=== PATIENT | male | born 1945 | race Asian ===

== ENCOUNTER 2016-10-28 09:17 | Outpatient (CLI) | payer MEDICARE, BC | END 2016-10-28 09:18 | disposition home or self-care (01) | DX: K59.09 Other constipation (principal); I73.9 Peripheral vascular disease, unspecified; E03.9 Hypothyroidism, unspecified; K21.0 Gastro-esophageal reflux disease with esophagitis; I48.0 Paroxysmal atrial fibrillation; N18.3 Chronic kidney disease, stage 3 (moderate); N05.9 Unspecified nephritic syndrome with unspecified morphologic changes; D70.9 Neutropenia, unspecified; M10.00 Idiopathic gout, unspecified site ==

== ENCOUNTER 2016-11-28 15:01 | Emergency (ER) | payer MEDICARE, BC ==
[2016-11-28] MEDS ORDERED: LIDOCAINE VISCOUS 2% 15 ML UDC MM STA (15:42)
[2016-11-28] MEDS ORDERED: MAG HYDROX/AL HYDROX/SIMETH 30 ML UDC PO STA (15:43)
[2016-11-28] MEDS ORDERED: MAG HYDROX/AL HYDROX/SIMETH 30 ML UDC ONE (15:49)
[2016-11-28] MEDS ORDERED: LIDOCAINE VISCOUS 2% 15 ML UDC MM ONE (15:49)
[2016-11-28] MEDS ORDERED: IPRATROPIUM/ALBUTEROL 3 ML NEB INH STA (16:00)
[2016-11-28] MEDS ORDERED: IPRATROPIUM/ALBUTEROL 3 ML NEB INH ONE (16:13)
== END 2016-11-28 17:34 | disposition home or self-care (01) ==
DX: K29.00 Acute gastritis without bleeding (principal); J44.9 Chronic obstructive pulmonary disease, unspecified; I10 Essential (primary) hypertension; E78.00 Pure hypercholesterolemia, unspecified; I25.2 Old myocardial infarction; Z86.73 Personal history of transient ischemic attack (TIA), and cerebral infarction without residual deficits; Z87.891 Personal history of nicotine dependence
CPT/HCPCS: 36415; 71020; 80053; 83690; 84484; 85025; 93005; 93010; 94640; 94664; 99283; 99284; A9270; J7620

== ENCOUNTER 2017-01-27 08:00 | Outpatient (CLI) | payer MEDICARE, BC | END 2017-01-27 23:59 | DX: E11.29 Type 2 diabetes mellitus with other diabetic kidney complication (principal); I73.9 Peripheral vascular disease, unspecified; I48.0 Paroxysmal atrial fibrillation; I10 Essential (primary) hypertension; I25.10 Atherosclerotic heart disease of native coronary artery without angina pectoris ==

== ENCOUNTER 2017-04-28 09:03 | Outpatient (CLI) | payer MEDICARE, BC ==
[2017-04-28 09:40] LABS: HCT - HEMATOCRIT 39.9 % (42.0-52.0); HGB - HEMOGLOBIN 13.4 g/dL (14.0-18.0); MEAN CORPUSCULAR HEMOGLOBIN 31.4 pg (27.0-31.0); MEAN CORPUSCULAR HGB CONC 33.6 g/dL (32.0-36.0); MEAN CORPUSCULAR VOLUME 93.4 fL (80.0-94.0); MEAN PLATELET VOLUME 7.4 fL (7.4-11.4); RED BLOOD COUNT 4.27 10^6/uL (4.70-6.10); RED CELL DISTRIBUTION WIDTH 13.1 % (12.0-15.0); WHITE BLOOD COUNT 5.9 x10^3/uL (4.8-10.8)
[2017-04-28 10:00] LABS: ALBUMIN/GLOBULIN RATIO 1.5 (1.0-2.2); BILIRUBIN,TOTAL 0.9 mg/dL (0.2-1.0); CALCIUM 9.4 mg/dL (8.5-10.3); HEMOGLOBIN A1C 0.81 g/dL; POTASSIUM 4.6 mmol/L (3.5-5.0); TOTAL PROTEIN 6.9 g/dL (6.7-8.2)
== END 2017-04-28 09:04 | disposition home or self-care (01) ==
LOC: LAB 09:03
PROVIDERS: ATTEND Internal Medicine Nephrology
DX: N05.9 Unspecified nephritic syndrome with unspecified morphologic changes (principal); E11.9 Type 2 diabetes mellitus without complications; D70.9 Neutropenia, unspecified; M10.00 Idiopathic gout, unspecified site; R80.9 Proteinuria, unspecified; I48.0 Paroxysmal atrial fibrillation; K21.9 Gastro-esophageal reflux disease without esophagitis; I25.10 Atherosclerotic heart disease of native coronary artery without angina pectoris
CPT/HCPCS: 36415; 80053; 82043; 82570; 83036; 84156; 84550

== ENCOUNTER 2017-06-25 09:21 | Emergency (ER) | payer MEDICARE, BC ==
[2017-06-25] MEDS ORDERED: SODIUM CHLORIDE FLUSH 0.9% 10 ML SYRINGE IVP ONE ×2 (09:52→12:36)
[2017-06-25 10:13] LABS: BASOPHILS # (AUTO) 0.1 10^3/uL (0.0-0.1); BASOPHILS % (AUTO) 1.2 %; EOSINOPHILS # (AUTO) 0.8 10^3/uL (0.0-0.7); EOSINOPHILS % (AUTO) 13.1 %; HCT - HEMATOCRIT 36.5 % (42.0-52.0); LYMPHOCYTES % (AUTO) 16.4 %; MEAN CORPUSCULAR HEMOGLOBIN 31.1 pg (27.0-31.0); MEAN CORPUSCULAR HGB CONC 32.7 g/dL (32.0-36.0); MEAN PLATELET VOLUME 7.7 fL (7.4-11.4); MONOCYTES # (AUTO) 0.5 10^3/uL (0.0-1.0); MONOCYTES % (AUTO) 7.9 %; NEUTROPHILS # (AUTO) 3.6 10^3/uL (1.5-6.6); NEUTROPHILS % (AUTO) 61.4 %; RED BLOOD COUNT 3.84 10^6/uL (4.70-6.10); RED CELL DISTRIBUTION WIDTH 13.8 % (12.0-15.0); UNCORRECTED WHITE BLOOD COUNT 5.8 x10^3/uL; WHITE BLOOD COUNT 5.8 x10^3/uL (4.8-10.8)
[2017-06-25 10:23] LABS: ALBUMIN/GLOBULIN RATIO 1.4 (1.0-2.2); BILIRUBIN,TOTAL 0.7 mg/dL (0.2-1.0); CREATININE 1.9 mg/dL (0.6-1.2); POTASSIUM 4.7 mmol/L (3.5-5.0); TOTAL PROTEIN 6.6 g/dL (6.7-8.2)
--- NOTE | 2017-06-25 10:44 | XRAY Preliminary Report ---
Exam: XR Chest 1 View IMPRESSION: No radiographically apparent acute abnormality in the chest. No significant change from p rior allowing for differences in technique. [facility] SITE ID: [id number]
--- NOTE | 2017-06-25 10:46 | XRAY Report ---
EXAM: CHEST RADIOGRAPHY EXAM DATE: 06/25/2017 10:17 AM. CLINICAL HISTORY: Chest pain. COMPARISON: 11/28/2016. TECHNIQUE: 1 view. FINDINGS: Lungs/Pleura: No focal consolidation evident. Left pleural thickening as before. No pleural effusion. No pneumothorax. Mediastinum: Mild enlargement of the cardiac silhouette and tortuous, atherosclerotic thoracic aorta are similar to prior. Surgical clips throughout the mediastinum. Other: Left chest dual-lead cardiac conduction device in stable position. Status post median sternoto my. IMPRESSION: No radiographically apparent acute abnormality in the chest. No significant change from p rior allowing for differences in technique. [facility] Referring Provider Line: [phone] SITE ID: [id number]
[2017-06-25] MEDS ORDERED: cefTRIAXone 1 GM VIAL IVP STA (10:54)
[2017-06-25] MEDS ORDERED: VANCOMYCIN INJ 1 GM in SODIUM CHLORIDE 0.9% 250 ML IV STA (10:54)
[2017-06-25] MEDS ORDERED: MAG HYDROX/AL HYDROX/SIMETH 30 ML UDC PO STA (10:55)
[2017-06-25] MEDS ORDERED: PHENobarb/HYOSCY/ATROPINE/SCOP 5 ML SYRINGE PO STA (10:56)
[2017-06-25] MEDS ORDERED: LIDOCAINE VISCOUS 2% 15 ML UDC MM STA (10:56)
[2017-06-25] MEDS ORDERED: MAG HYDROX/AL HYDROX/SIMETH 30 ML UDC ONE (11:23)
[2017-06-25] MEDS ORDERED: cefTRIAXone 1 GM VIAL ONE (11:23)
[2017-06-25] MEDS ORDERED: PHENobarb/HYOSCY/ATROPINE/SCOP 5 ML SYRINGE PO ONE (11:23)
[2017-06-25] MEDS ORDERED: LIDOCAINE VISCOUS 2% 15 ML UDC MM ONE (11:23)
[2017-06-25] MEDS ORDERED: VANCOMYCIN 1 GM VIAL ONE ×2 (12:36→12:43)
--- NOTE | 2017-06-25 13:29 | ED Physician Documentation ---
PD HPI Fall - Stated complaint Stated Complaint: CHEST PAIN - Chief complaint Chief Complaint: Cardiac - History obtained from History obtained from: Patient, Family - History of Present Illness Similar symptoms before: Diagnosis (Reports history of esophageal spasms, as well as a prior history of H. pylori, which was treated.) - Additional information Additional information: The patient is a 71-year-old male who presents with left substernal chest pain that started yesterday and recurred again this morning. He denies associated nausea, vomiting, shortness of breath, or diaphoresis. He reports history of similar symptoms in the past with gastroesophageal reflux and esophageal spasms. He sees a cushion spring assembler, who treated him for H. pylori, and subsequent test revealed resolution. He also has history of coronary artery disease, status post CABG, and status post pacer placement. He has a history of atrial fibrillation, and is anticoagulated on Eliquis. Review of Systems Constitutional: denies: Fever, Fatigue Ears: denies: Tinnitus/ringing Nose: denies: Congestion Throat: denies: Sore throat Cardiac: reports: Chest pain / pressure. denies: Palpitations Respiratory: denies: Dyspnea, Cough GI: denies: Abdominal Pain, Nausea, Vomiting : denies: Dysuria Skin: denies: Rash Musculoskeletal: denies: Neck pain, Extremity swelling Neurologic: denies: Focal weakness, Numbness, Headache PD PAST MEDICAL HISTORY - Past Medical History Cardiovascular: Hypertension, High cholesterol, [place] Respiratory: None Neuro: CVA Endocrine/Autoimmune: None GI: GERD, Other (H. pylori) : Renal insuffiency HEENT: Other Psych: None Musculoskeletal: None - Past Surgical History Past Surgical History: Yes Cardiovascular: CABG, Pacemaker - Present Medications Home Medications: Ambulatory Orders Medication Instructions Recorded Confirmed Allopurinol 300 mg PO DAILY 06/18/14 06/25/17 Amiodarone [Pacerone] 200 mg PO QPM 06/18/14 06/25/17 Amlodipine Besylate [Norvasc] 2.5 mg PO DAILY 06/18/14 06/25/17 Ammonium Lactate 12 misc TOP BID 06/18/14 06/25/17 Atorvastatin Calcium 40 mg PO QPM 06/18/14 06/25/17 Cholecalciferol (Vitamin D3) 1,000 units PO DAILY 06/18/14 06/25/17 [Vitamin D-3] Clobetasol Propionate/Emoll 0.05 misc TOP DAILY 06/18/14 06/25/17 [Clobetasol Emollient 0.05% Crm] Metoprolol Succinate 25 mg PO DAILY 06/18/14 06/25/17 Insulin Glargine [Lantus Solostar] 8 unit SUBQ QDBREAKFAST 07/11/14 06/25/17 Apixaban [Eliquis] 5 mg PO BID 09/06/15 06/25/17 Albuterol Sulf [Ventolin Hfa 1 - 2 puffs INH Q4HR PRN #1 inhaler 11/28/16 Inhaler] Aspirin Chewable [St Binu 81 mg PO DAILY 06/25/17 06/25/17 Aspirin] Clobetasol Propionate/Emoll 06/25/17 [Clobetasol Emollient 0.05% Crm] Hydrocortisone 1% Oint 06/25/17 [Hydrocortisone] Ketoconazole 06/25/17 Losartan Potassium 25 mg PO DAILY 06/25/17 06/25/17 Tamsulosin [Flomax] 0.4 mg PO DAILY PM 06/25/17 06/25/17 - Allergies Allergies/Adverse Reactions: Allergies Allergy/AdvReac Type Severity Reaction Status Date / Time Penicillins Allergy Unknown Verified 06/25/17 09:45 - Social History Does the pt smoke?: Yes Smoking Status: Former smoker Does the pt drink ETOH?: No Does the pt have substance abuse?: No PD ED PE NORMAL - Vitals Vital signs reviewed: Yes (Hypertension initially.) - General General: Alert and oriented X 3, Well developed/nourished - HEENT HEENT: Atraumatic, EOMI, Pharynx benign - Neck Neck: No adenopathy, No JVD - Cardiac Cardiac: RRR, No murmur - Respiratory Respiratory: No respiratory distress, Clear bilaterally - Abdomen Abdomen: Normal bowel sounds, Soft, No organomegaly, Other (Mild epigastric tenderness to palpation, without rebound or guarding.) - Back Back: No CVA TTP - Derm Derm: No rash - Extremities Extremities: No edema, No calf tenderness / cord - Neuro Neuro: Alert and oriented X 3, No motor deficit, Normal speech Results - Vitals Vitals: Oxygen O2 Source Room air - EKG (time done) 09:55 Rate: Rate (enter#) (70) Rhythm: Paced (atrial paced) [place]: LAD Intervals: Normal [place] Ischemia: Non specific changes Computer interpretation: Agree with computer - Labs Labs: Laboratory Tests 06/25/17 06/25/17 06/25/17 09:52 09:52 09:52 WBC 5.8 RBC 3.84 L Hgb 12.0 L Hct 36.5 L MCV 95.0 H MCH 31.1 H MCHC 32.7 RDW 13.8 Plt Count 152 MPV 7.7 Neut # 3.6 Lymph # 1.0 L [place] # 0.5 Eos # 0.8 H Baso # 0.1 Absolute Nucleated RBC 0.00 Nucleated RBC % 0.0 Sodium 140 Potassium 4.7 Chloride 105 Carbon Dioxide 26 Anion Gap 9.0 BUN 27 H Creatinine 1.9 H Estimated GFR (MDRD) 35 L Glucose 231 H Calcium 9.0 Total Bilirubin 0.7 AST 23 ALT 21 Alkaline Phosphatase 98 Troponin I < 0.04 Total Protein 6.6 L Albumin 3.8 Globulin 2.8 Albumin/Globulin Ratio 1.4 Lipase 49 - Rads (name of study) Chest 1 view Radiology: Prelim report reviewed, EMP read contemporaneously, See rad report ( No radiographically apparent acute abnormality in the chest. No significant change from prior, allowing for differences in technique.) PD MEDICAL DECISION MAKING - ED course Complexity details: reviewed old records, reviewed results, re-evaluated patient , considered differential, d/w patient ED course: The patient's presentation with substernal chest discomfort is most consistent with gastroesophageal reflux/esophageal spasm. I doubt cardiac etiology for his symptoms, and there is no evidence to suggest pulmonary etiology. His electrocardiogram reveals no acute ischemic abnormalities, and troponin is normal. Chest x-ray reveals no acute abnormalities. Chemistry panel reveals an elevated serum glucose of 231. His BUN/creatinine are also mildly elevated, but unchanged from previous values. Treatment in the emergency department included administration of GI cocktail which completely relieved his symptoms. It should be noted that the patient was mistakenly given IV antibiotics that were intended for another patient. He had received partial doses of ceftriaxone and vancomycin before they error was identified and the antibiotic infusion was discontinued. I informed him of the error and answered his questions regarding potential undesirable side effects. I discussed with him the diagnosis, symptomatic treatment and outpatient follow- up, as well as potentially worrisome signs or symptoms that should prompt reevaluation in the emergency department. Departure - Departure Disposition: 01 Home, Self Care Clinical Impression: Chest pain Qualifiers: Chest pain type: precordial pain Qualified Code(s): R07.2 - Precordial pain Gastroesophageal reflux disease Qualifiers: Esophagitis presence: esophagitis presence not specified Qualified Code(s): K21.9 - Gastro-esophageal reflux disease without esophagitis Diabetes mellitus with hyperglycemia Qualifiers: Diabetes mellitus type: type 2 Diabetes mellitus intermediate card tender insulin use: with longterm use Qualified Code(s): E11.65 - Type 2 diabetes mellitus with hyperglycemia; Z79.4 - parts counterman (current) use of insulin; Z79.4 - parts counterman ( current) use of insulin; Z79.4 - parts counterman (current) use of insulin; Z79.4 - parts counterman (current) use of insulin Condition: Stable Instructions: ED GERD Follow-Up: Devyn Kendrick MD [Provider Admit Priv/Credential] - Comments: Take Maalox or Mylanta, 30 mL, if needed for recurrent chest discomfort consistent with reflux. Keep follow-up appointment with your cushion spring assembler next week as scheduled. Return to the emergency department if you develop increasing chest pain, shortness of breath, or otherwise worsening symptoms. Discharge Date/Time: 06/25/17 14:07
[2017-06-25 13:59] VITALS: BP 174/82
== END 2017-06-25 14:07 | disposition home or self-care (01) ==
LOC: ED 09:21
DX: R07.2 Precordial pain (principal); K21.9 Gastro-esophageal reflux disease without esophagitis; E11.65 Type 2 diabetes mellitus with hyperglycemia; Z79.4 Long term (current) use of insulin; I48.91 Unspecified atrial fibrillation; Z79.01 Long term (current) use of anticoagulants; I25.10 Atherosclerotic heart disease of native coronary artery without angina pectoris; Z95.1 Presence of aortocoronary bypass graft; I25.2 Old myocardial infarction; Z95.0 Presence of cardiac pacemaker; I10 Essential (primary) hypertension; E78.00 Pure hypercholesterolemia, unspecified; Z86.73 Personal history of transient ischemic attack (TIA), and cerebral infarction without residual deficits
CPT/HCPCS: 36415; 71010; 80053; 83690; 84484; 85025; 93005; 96365; 96375; 99283; 99284; A9270

== ENCOUNTER 2017-07-01 09:18 | Outpatient (CLI) | payer MEDICARE, BC ==
[2017-07-01 10:13] LABS: CALCIUM 9.8 mg/dL (8.5-10.3); CREATININE 1.9 mg/dL (0.6-1.2); PHOSPHORUS 3.7 mg/dL (2.5-4.6); POTASSIUM 4.9 mmol/L (3.5-5.0)
[2017-07-01 10:29] LABS: THYROID STIMULATING HORMONE 8.22 uIU/mL (0.34-5.60)
[2017-07-03 13:20] LABS: ALPHA 1 GLOBULIN 0.3 g/dL (0.2-0.3); ALPHA 2 GLOBULIN 0.8 g/dL (0.5-0.9); BETA 1 GLOBULIN 0.4 g/dL (0.4-0.6); BETA 2 GLOBULIN 0.4 g/dL (0.2-0.5); GAMMA GLOBULIN 0.9 g/dL (0.8-1.7)
[2017-07-03 18:26] LABS: TEST RESULT REPORT
[2017-07-03 21:51] LABS: TEST RESULT REPORT
== END 2017-07-01 09:19 | disposition home or self-care (01) ==
LOC: LAB 09:18
PROVIDERS: ATTEND Internal Medicine Nephrology
DX: N05.9 Unspecified nephritic syndrome with unspecified morphologic changes (principal); E03.9 Hypothyroidism, unspecified; E83.30 Disorder of phosphorus metabolism, unspecified; R80.9 Proteinuria, unspecified; D47.2 Monoclonal gammopathy
CPT/HCPCS: 36415; 80048; 81599; 83883; 83970; 84100; 84155; 84165; 84439; 84443; 86334

== ENCOUNTER 2017-11-09 10:22 | Outpatient (CLI) | payer MEDICARE, BC ==
[2017-11-09 13:31] LABS: ALBUMIN 4.1 g/dL (3.2-5.5); ALBUMIN/GLOBULIN RATIO 1.1 (1.0-2.2); BILIRUBIN,TOTAL 0.8 mg/dL (0.2-1.0); CALCIUM 9.3 mg/dL (8.5-10.3); CREATININE 1.6 mg/dL (0.6-1.2); HB2 TOTAL 14.7 g/dL; HEMOGLOBIN A1C 0.79 g/dL; HEMOGLOBIN A1C % 7.1 % (4.6-6.2); TOTAL PROTEIN 7.8 g/dL (6.7-8.2); URIC ACID 6.6 mg/dL (2.6-7.2)
== END 2017-11-09 10:23 | disposition home or self-care (01) ==
LOC: LAB.WCP 10:22
PROVIDERS: ATTEND Family Medicine
DX: R13.10 Dysphagia, unspecified (principal); E11.29 Type 2 diabetes mellitus with other diabetic kidney complication; I48.0 Paroxysmal atrial fibrillation; M10.9 Gout, unspecified
CPT/HCPCS: 36415; 80053; 83036; 84550

== ENCOUNTER 2017-12-10 08:00 | Outpatient (CLI) | payer MEDICARE, BC ==
[2017-12-10 12:36] LABS: BASOPHILS # (AUTO) 0.1 10^3/uL (0.0-0.1); BASOPHILS % (AUTO) 0.9 %; EOSINOPHILS # (AUTO) 0.8 10^3/uL (0.0-0.7); EOSINOPHILS % (AUTO) 12.7 %; HGB - HEMOGLOBIN 12.2 g/dL (14.0-18.0); LYMPHOCYTES % (AUTO) 15.2 %; MEAN CORPUSCULAR HEMOGLOBIN 31.3 pg (27.0-31.0); MEAN CORPUSCULAR HGB CONC 33.3 g/dL (32.0-36.0); MEAN PLATELET VOLUME 7.8 fL (7.4-11.4); MONOCYTES # (AUTO) 0.6 10^3/uL (0.0-1.0); NEUTROPHILS # (AUTO) 4.2 10^3/uL (1.5-6.6); NEUTROPHILS % (AUTO) 62.2 %; PLT - PLATELET COUNT 180 10^3/uL (130-450); RED CELL DISTRIBUTION WIDTH 13.5 % (12.0-15.0); WHITE BLOOD COUNT 6.7 x10^3/uL (4.8-10.8)
[2017-12-10 13:12] LABS: THYROID STIMULATING HORMONE < 0.08 uIU/mL (0.34-5.60)
[2017-12-10 14:27] LABS: FREE T4 (FREE THYROXINE) 3.23 ng/dL (0.58-1.64)
== END 2017-12-10 08:01 | disposition home or self-care (01) ==
LOC: LAB.WCP 08:00
PROVIDERS: ATTEND Family Medicine
DX: J44.9 Chronic obstructive pulmonary disease, unspecified (principal); E11.29 Type 2 diabetes mellitus with other diabetic kidney complication; I48.0 Paroxysmal atrial fibrillation; I25.10 Atherosclerotic heart disease of native coronary artery without angina pectoris
CPT/HCPCS: 36415; 82043; 84439; 84443; 85025

== ENCOUNTER 2018-02-07 08:21 | Outpatient (CLI) | payer MEDICARE, BC ==
[2018-02-07 08:52] LABS: HGB - HEMOGLOBIN 13.2 g/dL (14.0-18.0); MEAN CORPUSCULAR HEMOGLOBIN 30.7 pg (27.0-31.0); MEAN CORPUSCULAR HGB CONC 33.2 g/dL (32.0-36.0); MEAN CORPUSCULAR VOLUME 92.4 fL (80.0-94.0); MEAN PLATELET VOLUME 7.6 fL (7.4-11.4); RED BLOOD COUNT 4.31 10^6/uL (4.70-6.10); RED CELL DISTRIBUTION WIDTH 13.8 % (12.0-15.0); WHITE BLOOD COUNT 13.9 x10^3/uL (4.8-10.8)
[2018-02-07 09:22] LABS: CALCIUM 8.9 mg/dL (8.5-10.3); URIC ACID 4.9 mg/dL (2.6-7.2)
== END 2018-02-07 08:22 | disposition home or self-care (01) ==
LOC: LAB 08:21
PROVIDERS: ATTEND Internal Medicine Nephrology
DX: M10.00 Idiopathic gout, unspecified site (principal); D70.9 Neutropenia, unspecified; N05.9 Unspecified nephritic syndrome with unspecified morphologic changes; D63.1 Anemia in chronic kidney disease
CPT/HCPCS: 36415; 80048; 84550; 85027

== ENCOUNTER 2018-02-11 08:30 | Outpatient (CLI) | payer MEDICARE, BC ==
[2018-02-16 21:41] LABS: ALBUMIN 3.2 g/dL (3.8-4.8); ALPHA 1 GLOBULIN 0.3 g/dL (0.2-0.3); ALPHA 2 GLOBULIN 0.9 g/dL (0.5-0.9); BETA 1 GLOBULIN 0.4 g/dL (0.4-0.6); BETA 2 GLOBULIN 0.3 g/dL (0.2-0.5); GAMMA GLOBULIN 0.8 g/dL (0.8-1.7)
== END 2018-02-11 08:31 | disposition home or self-care (01) ==
LOC: LAB 08:30
PROVIDERS: ATTEND Internal Medicine Nephrology
DX: R80.9 Proteinuria, unspecified (principal); D47.2 Monoclonal gammopathy
CPT/HCPCS: 36415; 81599; 83883; 84155; 84165

== ENCOUNTER 2018-03-14 09:50 | Outpatient (CLI) | END 2018-03-14 09:51 | disposition home or self-care (01) ==

== ENCOUNTER 2019-01-03 09:08 | Outpatient (CLI) | payer MEDICARE, BC ==
[2019-01-03] MEDS ORDERED: ALBUTEROL NEB 2.5 MG/3 ML INH ONE (10:00)
== END 2019-01-03 09:09 | disposition home or self-care (01) ==
LOC: RT 09:08
PROVIDERS: ATTEND Family Medicine
DX: J45.998 Other asthma (principal)
CPT/HCPCS: 94060; 94729

== ENCOUNTER 2019-02-15 09:25 | Outpatient (CLI) | payer MEDICARE, BC ==
[2019-02-15 12:48] LABS: BASOPHILS % (AUTO) 1.5 %; EOSINOPHILS % (AUTO) 15.3 %; HGB - HEMOGLOBIN 12.6 g/dL (14.0-18.0); LYMPHOCYTES % (AUTO) 13.4 %; MEAN CORPUSCULAR HEMOGLOBIN 31.7 pg (27.0-31.0); MEAN CORPUSCULAR HGB CONC 33.1 g/dL (32.0-36.0); MEAN CORPUSCULAR VOLUME 95.8 fL (80.0-94.0); MEAN PLATELET VOLUME 8.2 fL (7.4-11.4); MONOCYTES % (AUTO) 8.2 %; NEUTROPHILS % (AUTO) 61.6 %; PLT - PLATELET COUNT 215 10^3/uL (130-450); RED BLOOD COUNT 3.97 10^6/uL (4.70-6.10); RED CELL DISTRIBUTION WIDTH 14.4 % (12.0-15.0); WHITE BLOOD COUNT 6.2 x10^3/uL (4.8-10.8)
[2019-02-15 13:14] LABS: ALBUMIN 3.5 g/dL (3.2-5.5); ALBUMIN/GLOBULIN RATIO 1.3 (1.0-2.2); BILIRUBIN,TOTAL 0.7 mg/dL (0.2-1.0); CREATININE 2.1 mg/dL (0.6-1.2); TOTAL PROTEIN 6.2 g/dL (6.7-8.2)
[2019-02-15 13:25] LABS: ABNORMAL LYMPHS % (MANUAL) 0 %; BAND NEUTROPHILS % (MANUAL) 0 %
[2019-02-15 13:33] LABS: BASOPHILS # (MANUAL) 0.1 10^3/uL (0-0.1); BASOPHILS % (MANUAL) 2 %; DIFFERENTIAL COMMENT MANUAL DIFFERENTIAL; EOSINOPHILS # (MANUAL) 0.7 10^3/uL (0-0.7); LYMPHOCYTES % (MANUAL) 16 %; MONOCYTES # (MANUAL) 0.8 10^3/uL (0.0-1.0); NEUTROPHILS # (MANUAL) 3.6 10^3/uL (1.5-6.6); NEUTROPHILS % (MANUAL) 58 %; PLATELET ESTIMATE, MANUAL NORMAL (130-450,000) (NORMAL); PLATELET MORPHOLOGY NORMAL APPEARANCE (NORMAL); RBC MORPHOLOGY (MULTIPLE) NORMAL APPEARANCE (NORMAL)
[2019-02-15 14:08] LABS: CREATININE,URINE 192.2 mg/dL; MICROALBUM/CREATININE RATIO,UR 1633.7 ug/mg (<30.0)
[2019-02-15 14:23] LABS: HB2 TOTAL 12.8 g/dL; HEMOGLOBIN A1C 0.85 g/dL; HEMOGLOBIN A1C % 8.2 % (4.6-6.2)
== END 2019-02-15 09:26 | disposition home or self-care (01) ==
LOC: LAB.WCP 09:25
PROVIDERS: ATTEND Family Medicine
DX: I48.0 Paroxysmal atrial fibrillation (principal); E11.29 Type 2 diabetes mellitus with other diabetic kidney complication; I10 Essential (primary) hypertension; K21.0 Gastro-esophageal reflux disease with esophagitis; J45.909 Unspecified asthma, uncomplicated
CPT/HCPCS: 36415; 80053; 82043; 82570; 83036; 84443; 85025

== ENCOUNTER 2019-04-22 08:37 | Outpatient (CLI) | payer MEDICARE, BC ==
[2019-04-22 09:45] LABS: CREATININE,URINE 191.1 mg/dL; PROTEIN/CREATININE RATIO,URINE 2.2 (<=0.2)
[2019-04-22 09:57] LABS: CALCIUM 8.7 mg/dL (8.5-10.3); CREATININE 2.1 mg/dL (0.6-1.2)
[2019-04-22 10:08] LABS: HGB - HEMOGLOBIN 13.6 g/dL (14.0-18.0); MEAN CORPUSCULAR HEMOGLOBIN 31.3 pg (27.0-31.0); MEAN CORPUSCULAR HGB CONC 31.3 g/dL (32.0-36.0); MEAN CORPUSCULAR VOLUME 99.8 fL (80.0-94.0); MEAN PLATELET VOLUME 9.9 fL (7.4-11.4); RED BLOOD COUNT 4.35 10^6/uL (4.70-6.10); RED CELL DISTRIBUTION WIDTH 12.9 % (12.0-15.0); WHITE BLOOD COUNT 6.6 x10^3/uL (4.8-10.8)
[2019-04-26 15:56] LABS: ALBUMIN 3.6 g/dL (3.8-4.8); ALPHA 1 GLOBULIN 0.3 g/dL (0.2-0.3); ALPHA 2 GLOBULIN 0.9 g/dL (0.5-0.9); BETA 1 GLOBULIN 0.4 g/dL (0.4-0.6); BETA 2 GLOBULIN 0.3 g/dL (0.2-0.5); GAMMA GLOBULIN 0.6 g/dL (0.8-1.7)
== END 2019-04-22 08:38 | disposition home or self-care (01) ==
LOC: LAB 08:37
PROVIDERS: ATTEND Internal Medicine Nephrology
DX: N40.1 Benign prostatic hyperplasia with lower urinary tract symptoms (principal); N05.9 Unspecified nephritic syndrome with unspecified morphologic changes; R80.9 Proteinuria, unspecified; D63.1 Anemia in chronic kidney disease; D47.2 Monoclonal gammopathy; D70.9 Neutropenia, unspecified
CPT/HCPCS: 36415; 80048; 81599; 82570; 83883; 84153; 84155; 84156; 84165; 85027; 86334

== ENCOUNTER 2019-05-25 12:50 | Outpatient (CLI) | payer MEDICARE, BC | END 2019-05-25 12:51 | disposition home or self-care (01) | LOC: NS 12:50 | PROVIDERS: ATTEND Family Medicine | DX: Z71.3 Dietary counseling and surveillance (principal); N18.3 Chronic kidney disease, stage 3 (moderate); E11.29 Type 2 diabetes mellitus with other diabetic kidney complication | CPT/HCPCS: 97802 ==

== ENCOUNTER 2019-06-14 08:00 | Outpatient (CLI) | payer MEDICARE, BC ==
[2019-06-14 12:45] LABS: ALBUMIN 3.7 g/dL (3.2-5.5); ALBUMIN/GLOBULIN RATIO 1.3 (1.0-2.2); BILIRUBIN,TOTAL 0.8 mg/dL (0.2-1.0); CALCIUM 9.2 mg/dL (8.5-10.3); CREATININE 2.5 mg/dL (0.6-1.2); HB2 TOTAL 12.7 g/dL; HEMOGLOBIN A1C 0.68 g/dL; TOTAL PROTEIN 6.6 g/dL (6.7-8.2)
[2019-06-14 13:06] LABS: CREATININE,URINE 167.4 mg/dL; MICROALBUM/CREATININE RATIO,UR 1289.1 ug/mg (<30.0); MICROALBUMIN,URINE 215.8 mg/dL (0-300.0)
== END 2019-06-14 08:01 | disposition home or self-care (01) ==
LOC: LAB.WCP 08:00
PROVIDERS: ATTEND Family Medicine
DX: E11.29 Type 2 diabetes mellitus with other diabetic kidney complication (principal); K40.90 Unilateral inguinal hernia, without obstruction or gangrene, not specified as recurrent; I73.9 Peripheral vascular disease, unspecified; I48.0 Paroxysmal atrial fibrillation
CPT/HCPCS: 36415; 80053; 82043; 82570; 83036

== ENCOUNTER 2019-06-30 08:00 | Outpatient (CLI) | payer MEDICARE, BC ==
[2019-06-30 12:48] LABS: CHOL/HDL RATIO 4.2 (<5.0); CHOLESTEROL 194 mg/dL; HDL CHOLESTEROL 46 mg/dL; LDL CHOLESTEROL,CALCULATED 125 mg/dL; LDL/HDL RATIO 2.7 (<3.6); VLDL CHOLESTEROL 23 mg/dL
== END 2019-06-30 23:59 | disposition home or self-care (01) ==
LOC: LAB.WCP 08:00
PROVIDERS: ATTEND Family Medicine
DX: E78.5 Hyperlipidemia, unspecified (principal)
CPT/HCPCS: 36415; 80061; 83721

== ENCOUNTER 2019-07-03 09:59 | Outpatient (CLI) | payer MEDICARE, BC | END 2019-07-03 10:00 | disposition home or self-care (01) | LOC: NS 09:59 | PROVIDERS: ATTEND Family Medicine | DX: Z71.3 Dietary counseling and surveillance (principal); E11.29 Type 2 diabetes mellitus with other diabetic kidney complication | CPT/HCPCS: 97803 ==

== ENCOUNTER 2019-09-27 14:49 | Outpatient (CLI) | payer MEDICARE, BC ==
[2019-09-27 15:12] LABS: HGB - HEMOGLOBIN 12.4 g/dL (14.0-18.0); MEAN CORPUSCULAR HEMOGLOBIN 30.7 pg (27.0-31.0); MEAN CORPUSCULAR HGB CONC 31.7 g/dL (32.0-36.0); MEAN CORPUSCULAR VOLUME 96.8 fL (80.0-94.0); MEAN PLATELET VOLUME 8.8 fL (7.4-11.4); RED BLOOD COUNT 4.04 10^6/uL (4.70-6.10); RED CELL DISTRIBUTION WIDTH 13.3 % (12.0-15.0); WHITE BLOOD COUNT 7.3 x10^3/uL (4.8-10.8)
[2019-09-27 15:22] LABS: CREATININE 2.2 mg/dL (0.6-1.2)
[2019-09-27 15:57] LABS: CREATININE,URINE 136.8 mg/dL; PROTEIN/CREATININE RATIO,URINE 3.2 (<=0.2)
== END 2019-09-27 14:50 | disposition home or self-care (01) ==
LOC: LAB 14:49
PROVIDERS: ATTEND Internal Medicine Nephrology
DX: N05.9 Unspecified nephritic syndrome with unspecified morphologic changes (principal); D70.9 Neutropenia, unspecified; D63.1 Anemia in chronic kidney disease; R80.9 Proteinuria, unspecified
CPT/HCPCS: 36415; 80048; 82570; 84156; 85027

== ENCOUNTER 2019-10-18 06:38 | Outpatient (CLI) | payer MEDICARE, BC ==
--- NOTE | 2019-10-19 11:36 | Ultrasound Report ---
Reason: CARODTID ARTERIAL DISEASE Procedure Date: 10/18/2019 Accession Number: [id number] / [id number] Procedure: US - Carotid Doppler Complete CPT Code: Final Report FULL RESULT: EXAM: BILATERAL CAROTID AND VERTEBRAL ARTERY DUPLEX DOPPLER ULTRASOUND: EXAM DATE: 10/18/2019 07:40 AM CLINICAL HISTORY: Carotid arterial disease. COMPARISON: 04/26/2011 2:01 PM 11/13/2006 1:30 PM. TECHNIQUE: Grayscale imaging, color Doppler, and duplex spectral Doppler were used to evaluate the carotid and vertebral arteries bilaterally. Static images were obtained. FINDINGS: Moderate atheromatous plaques are present in the right carotid bulb extending into the internal carotid artery. Color and grayscale imaging and spectral waveform analysis suggest a stenosis of 50-69% in the proximal right internal carotid artery. Moderate atheromatous plaques are present in the left carotid bulb extending into the internal carotid artery. However, no hemodynamically significant stenoses are noted. Elevated velocities are noted in the proximal bilateral external carotid arteries with evidence of associated mild spectral broadening. Visualized portions of the neck soft tissues are grossly unremarkable. Normal antegrade flow is present in bilateral vertebral arteries. VELOCITIES (cm/sec): Right CCA mid: PSV 108 cm/sec CCA dist: PSV 45 cm/sec ICA prox: PSV 175 cm/sec, EDV 46 cm/sec ICA mid: PSV 88 cm/sec, EDV 29 cm/sec ICA dist: PSV 84 cm/sec, EDV 35 cm/sec ECA: PSV 235 cm/sec Vert: PSV 33 cm/sec ICA/CCA: 1.62 Left CCA mid: PSV 57 cm/sec CCA dist: PSV 58 cm/sec ICA prox: PSV 82 cm/sec, EDV 27 cm/sec ICA mid: PSV 91 cm/sec, EDV 33 cm/sec ICA dist: PSV 91 cm/sec, EDV 31 cm/sec ECA: PSV 221 cm/sec Vert: PSV 60 cm/sec ICA/CCA: 1.57 ICA diameter stenosis: Right: 50-69% by velocity and <70% by NASCET criteria. Left: <50% by velocity and <70% by NASCET criteria. IMPRESSION: 1. Moderate bilateral carotid artery plaquing. 2. Color and grayscale imaging and spectral waveform analysis suggest a stenosis of 50-69% in the proximal right internal carotid artery. 3. In the left carotid artery there are no elevated carotid artery velocities to suggest hemodynamically significant stenosis. 4. Normal antegrade flow is present in bilateral vertebral arteries. 5. Elevated velocities are noted in the proximal bilateral external carotid arteries. Findings are suspicious for a component of stenosis. General Recommendations: Stenosis =50% ICA - Follow-up ultrasound 6-12 months Stenosis <50% ICA - High Risk Patient with plaque - Follow-up ultrasound 1-2 years Normal Study but High Risk Patient - Follow-up ultrasound 3-5 years Management recommendations and diagnostic criteria are based on current IAC endorsed standards in Carotid Artery Stenosis: Grayscale and Doppler Ultrasound Diagnosis. Validated velocity measurements with angiographic measurements and velocity criteria are extrapolated from diameter data as defined by the Society of Radiologists in Ultrasound Consensus Conference Radiology 2003; 229;340-346. [facility]
== END 2019-10-18 06:39 | disposition home or self-care (01) ==
LOC: DI 06:38
PROVIDERS: ATTEND Family Medicine
DX: I65.21 Occlusion and stenosis of right carotid artery (principal)
CPT/HCPCS: 93880

== ENCOUNTER 2019-12-05 09:00 | Outpatient (CLI) | payer MEDICARE, BC ==
[2019-12-05 12:50] LABS: CALCIUM 8.8 mg/dL (8.5-10.3); CREATININE 2.3 mg/dL (0.6-1.2)
[2019-12-05 12:59] LABS: HB2 TOTAL 10.8 g/dL; HEMOGLOBIN A1C 1.02 g/dL; HEMOGLOBIN A1C % 10.8 % (4.6-6.2)
[2019-12-05 14:06] LABS: CREATININE,URINE 212.1 mg/dL; MICROALBUM/CREATININE RATIO,UR 1673.7 ug/mg (<30.0)
== END 2019-12-05 23:59 | disposition home or self-care (01) ==
LOC: LAB.WCP 09:00
PROVIDERS: ATTEND Family Medicine
DX: E11.29 Type 2 diabetes mellitus with other diabetic kidney complication (principal)
CPT/HCPCS: 36415; 80048; 82043; 82570; 83036

== ENCOUNTER 2020-05-16 11:24 | Outpatient (CLI) | payer MEDICARE, BC ==
[2020-05-16 18:04] LABS: BASOPHILS # (AUTO) 0.1 10^3/uL (0.0-0.1); BASOPHILS % (AUTO) 0.7 %; EOSINOPHILS # (AUTO) 0.3 10^3/uL (0.0-0.7); HGB - HEMOGLOBIN 12.5 g/dL (14.0-18.0); LYMPHOCYTES # (AUTO) 1.1 10^3/uL (1.5-3.5); MEAN CORPUSCULAR HEMOGLOBIN 32.6 pg (27.0-31.0); MEAN CORPUSCULAR HGB CONC 32.1 g/dL (32.0-36.0); MEAN CORPUSCULAR VOLUME 101.3 fL (80.0-94.0); MEAN PLATELET VOLUME 10.6 fL (7.4-11.4); MONOCYTES # (AUTO) 0.7 10^3/uL (0.0-1.0); MONOCYTES % (AUTO) 9.2 %; NEUTROPHILS # (AUTO) 5.1 10^3/uL (1.5-6.6); NEUTROPHILS % (AUTO) 70.4 %; PLT - PLATELET COUNT 150 10^3/uL (130-450); RED BLOOD COUNT 3.84 10^6/uL (4.70-6.10); RED CELL DISTRIBUTION WIDTH 13.1 % (12.0-15.0); WHITE BLOOD COUNT 7.3 x10^3/uL (4.8-10.8)
[2020-05-16 18:25] LABS: ALBUMIN 3.3 g/dL (3.2-5.5); ALBUMIN/GLOBULIN RATIO 1.4 (1.0-2.2); BILIRUBIN,TOTAL 0.7 mg/dL (0.2-1.0); CALCIUM 8.9 mg/dL (8.5-10.3); CREATININE 2.1 mg/dL (0.6-1.2); PHOSPHORUS 3.6 mg/dL (2.5-4.6); TOTAL PROTEIN 5.6 g/dL (6.7-8.2)
[2020-05-16 19:05] LABS: CREATININE,URINE 77.2 mg/dL; MICROALBUM/CREATININE RATIO,UR 3246.1 ug/mg (<30.0); MICROALBUMIN,URINE 250.6 mg/dL (0-300.0)
[2020-05-16 19:13] LABS: FREE T4 (FREE THYROXINE) 1.78 ng/dL (0.58-1.64)
[2020-05-16 19:19] LABS: HEMOGLOBIN A1c% 8.6 % (4.27-6.07)
== END 2020-05-16 23:59 | disposition home or self-care (01) ==
LOC: LAB.WCP 11:24
PROVIDERS: ATTEND Family Medicine
DX: I77.9 Disorder of arteries and arterioles, unspecified (principal); J44.9 Chronic obstructive pulmonary disease, unspecified; I48.0 Paroxysmal atrial fibrillation; E11.29 Type 2 diabetes mellitus with other diabetic kidney complication; N05.9 Unspecified nephritic syndrome with unspecified morphologic changes; E83.30 Disorder of phosphorus metabolism, unspecified; N25.81 Secondary hyperparathyroidism of renal origin
CPT/HCPCS: 36415; 80053; 82043; 82570; 83036; 83970; 84100; 84439; 84443; 85025

== ENCOUNTER 2020-06-13 09:03 | Outpatient (CLI) | payer MEDICARE, BC ==
[2020-06-13] MEDS ORDERED: ALBUTEROL 1 PUFF INH STA (11:14)
== END 2020-06-13 09:04 | disposition home or self-care (01) ==
LOC: RT 09:03
PROVIDERS: ATTEND Family Medicine
DX: J44.9 Chronic obstructive pulmonary disease, unspecified (principal)
CPT/HCPCS: 94060; 94729

== ENCOUNTER 2020-10-22 11:20 | Outpatient (CLI) | payer MEDICARE, BC ==
[2020-10-22 12:59] LABS: CALCIUM 9.3 mg/dL (8.5-10.3); CREATININE 2.6 mg/dL (0.6-1.2)
== END 2020-10-22 11:21 | disposition home or self-care (01) ==
LOC: LAB 11:20
PROVIDERS: ATTEND Internal Medicine Nephrology
DX: N05.9 Unspecified nephritic syndrome with unspecified morphologic changes (principal); I50.32 Chronic diastolic (congestive) heart failure
CPT/HCPCS: 36415; 80048; 83880

== ENCOUNTER 2020-10-31 10:49 | Outpatient (CLI) | payer MEDICARE, BC ==
[2020-10-31 11:13] LABS: CALCIUM 9.2 mg/dL (8.5-10.3); CREATININE 2.4 mg/dL (0.6-1.2)
[2020-10-31 11:45] LABS: CREATININE,URINE 100.4 mg/dL; PROTEIN/CREATININE RATIO,URINE 2.7 (<=0.2)
== END 2020-10-31 10:50 | disposition home or self-care (01) ==
LOC: LAB 10:49
PROVIDERS: ATTEND Internal Medicine Nephrology
DX: N05.9 Unspecified nephritic syndrome with unspecified morphologic changes (principal); R80.9 Proteinuria, unspecified
CPT/HCPCS: 36415; 80048; 82570; 84156

== ENCOUNTER 2020-12-03 10:49 | Outpatient (CLI) | payer MEDICARE, BC ==
[2020-12-03 11:41] LABS: THYROID STIMULATING HORMONE 0.1 uIU/mL (0.34-5.60)
[2020-12-03 11:43] LABS: FREE T4 (FREE THYROXINE) 1.93 ng/dL (0.58-1.64)
== END 2020-12-03 10:50 | disposition home or self-care (01) ==
LOC: LAB 10:49
PROVIDERS: ATTEND Internal Medicine Endocrinology, Diabetes & Metabolism
DX: E05.90 Thyrotoxicosis, unspecified without thyrotoxic crisis or storm (principal)
CPT/HCPCS: 36415; 84439; 84443

== ENCOUNTER 2020-12-07 16:57 | Emergency (ER) | payer MEDICARE, BC ==
--- NOTE | 2020-12-07 17:23 | ED Physician Documentation ---
History of Present Illness - Stated complaint Stated Complaint: DIZZY, SOA - Chief complaint Chief Complaint: Neuro - History obtained from History obtained from: Patient - History of Present Illness Timing: Today Pain level max: 0 Pain level now: 0 - Additonal information Additional information: 75-year-old male with a history of cardiac bypass in the and early . Also has a history of COPD. States today he felt lightheaded like he was going to pass out. He has felt short of breath all day as well. He states he has been using his nebulizer every 4 hours at home. No fevers. No cough. Worse with walking, better with rest. No chest pain. No abdominal pain. No nausea or vomiting. No head injury. No neck or back pain. Review of Systems Ten Systems: 10 systems reviewed and negative Constitutional: denies: Fever, Chills Nose: denies: Rhinorrhea / runny nose, Congestion Respiratory: reports: Dyspnea, Wheezing. denies: Cough GI: denies: Nausea, Vomiting, Diarrhea Skin: denies: Rash Musculoskeletal: denies: Neck pain, Back pain Neurologic: denies: Headache PD PAST MEDICAL HISTORY - Past Medical History Cardiovascular: Hypertension, High cholesterol, [place] Respiratory: COPD Endocrine/Autoimmune: None GI: GERD, Other (H. pylori) : Renal insuffiency HEENT: Other Psych: None Musculoskeletal: None - Past Surgical History Past Surgical History: Yes Cardiovascular: CABG, Pacemaker - Present Medications Home Medications: Ambulatory Orders Medication Instructions Recorded Confirmed Amiodarone [Pacerone] 200 mg PO QPM 06/18/14 06/25/17 Amlodipine Besylate [Norvasc] 2.5 mg PO DAILY 06/18/14 06/25/17 Ammonium Lactate 12 misc TOP BID 06/18/14 06/25/17 Atorvastatin Calcium 40 mg PO QPM 06/18/14 06/25/17 Cholecalciferol (Vitamin D3) 1,000 units PO DAILY 06/18/14 06/25/17 [Vitamin D-3] Clobetasol Propionate/Emoll 0.05 misc TOP DAILY 06/18/14 06/25/17 [Clobetasol Emollient 0.05% Crm] Metoprolol Succinate 25 mg PO DAILY 06/18/14 06/25/17 allopurinoL [Allopurinol] 300 mg PO DAILY 06/18/14 06/25/17 Insulin Glargine [Lantus Solostar] 8 unit SUBQ QDBREAKFAST 07/11/14 06/25/17 Apixaban [Eliquis] 5 mg PO BID 09/06/15 06/25/17 Albuterol Sulf [Ventolin Hfa 1 - 2 puffs INH Q4HR PRN #1 inhaler 11/28/16 06/25/17 Inhaler] Aspirin Chewable [St Binu 81 mg PO DAILY 06/25/17 06/25/17 Aspirin] Clobetasol Propionate/Emoll 06/25/17 [Clobetasol Emollient 0.05% Crm] Hydrocortisone 1% Oint 06/25/17 [Hydrocortisone] Ketoconazole 06/25/17 Losartan Potassium 25 mg PO DAILY 06/25/17 06/25/17 Tamsulosin [Flomax] 0.4 mg PO DAILY PM 06/25/17 06/25/17 predniSONE [Deltasone] 10 mg PO [id number] #42 tab 12/07/20 - Allergies Allergies/Adverse Reactions: Allergies Allergy/AdvReac Type Severity Reaction Status Date / Time Penicillins Allergy Unknown Verified 12/07/20 17:06 - Social History Does the pt smoke?: Yes Smoking Status: Former smoker Does the pt drink ETOH?: No Does the pt have substance abuse?: No PD ED PE NORMAL - Vitals Vital signs reviewed: Yes - General General: Alert and oriented X 3, No acute distress, Well developed/nourished - HEENT HEENT: PERRL, Moist mucous membranes - Neck Neck: Supple, no meningeal sign - Cardiac Cardiac: RRR, Strong equal pulses - Respiratory Respiratory: No respiratory distress, Other (Diminished breath sounds bilaterally with wheezing.) - Abdomen Abdomen: Soft, Non tender, Non distended - Derm Derm: Warm and dry - Extremities Extremities: No edema, No calf tenderness / cord - Neuro Neuro: Alert and oriented X 3, eligibility consultant 2-12 intact, No motor deficit, No sensory deficit, Normal speech, Other (Normal cerebellar test. Normal gait) Eye Opening: Spontaneous Motor: Obeys Commands Verbal: Oriented GCS Score: 15 - Psych Psych: Normal mood, Normal affect Results - Vitals Vitals: Vital Signs - 24 hr 03/20/21 03/20/21 03/20/21 17:01 18:03 19:06 Temperature 36.3 C L Heart Rate 85 72 70 Respiratory 16 18 16 Rate Blood Pressure 132/72 H 143/71 H O2 Saturation 97 97 12/07/20 19:26 Temperature 36.7 C Heart Rate 70 Respiratory 16 Rate Blood Pressure 143/71 H O2 Saturation 97 Oxygen O2 Source Room air - EKG (time done) 1711 Rate: Rate (enter#) (78) Rhythm: Paced (atrial) [place]: LAD Intervals: Wide QRS Ischemia: Non specific changes - Labs Labs: Laboratory Tests 12/07/20 12/07/20 12/07/20 17:31 17:31 17:31 WBC 6.6 RBC 3.60 L Hgb 11.6 L Hct 35.8 L MCV 99.4 H MCH 32.2 H MCHC 32.4 RDW 13.3 Plt Count 178 MPV 9.1 Neut # (Auto) 4.1 Lymph # (Auto) 1.1 L [place] # (Auto) 0.5 Eos # (Auto) 0.8 H Baso # (Auto) 0.1 Absolute Nucleated RBC 0.00 Nucleated RBC % 0.0 Sodium 141 Potassium 4.9 Chloride 107 Carbon Dioxide 23 Anion Gap 11.0 BUN 51 H Creatinine 2.8 H Estimated GFR (MDRD) 22 L Glucose 141 H Calcium 9.3 Total Bilirubin 0.7 AST 32 ALT 39 Alkaline Phosphatase 106 Troponin I High Sens 11.1 Total Protein 6.2 L Albumin 3.6 Globulin 2.6 Albumin/Globulin Ratio 1.4 Lipase 67 H - Rads (name of study) Chest x-ray Radiology: Prelim report reviewed, EMP read contemporaneously, See rad report PD MEDICAL DECISION MAKING - ED course Complexity details: reviewed results, re-evaluated patient, considered differential, d/w patient ED course: 75-year-old male with what appears to be a COPD flare. Given Solu-Medrol and a DuoNeb treatment. Feels much better. No longer short of breath. Minimal wheezing. Ambulating without difficulty. No evidence of acute coronary syndrome. Reviewed the [facility] which sound like a d ifferent presentation than today. Patient has no evidence of vertigo today. Normal neurological exam. Normal cerebellar test. Normal gait. No indication for antibiotics at this time. Patient counseled regarding signs and symptoms for which I believe and urgent re-evaluation would be necessary. Patient with good understanding of and agreement to plan and is comfortable going home at this time This document was made in part using voice recognition software. While efforts are made to proofread this document, sound alike and grammatical errors may occur. IMPRESSION: Minimal left costophrenic angle blunting which was present on multiple prior studies dating back to 11/28/2016, unchanged. This likely reflects some scarring although a chronic trace pleural effusion could cause a similar appearance. Departure - Departure Disposition: 01 Home, Self Care Clinical Impression: COPD exacerbation, Dehydration Condition: Good Instructions: ED COPD Flare, ED Dehydration Follow-Up: Bryce Reyes MD [Primary Care Provider] - Within 1 week Prescriptions: predniSONE [Deltasone] 10 mg PO [id number] #42 tab Comments: Use the prednisone as prescribed. Continue to use your albuterol and nebulizer treatments at home. Return if you worsen. This should improve over the next few days. Drink plenty of water. Discharge Date/Time: 12/07/20 19:27
[2020-12-07 17:38] LABS: BASOPHILS # (AUTO) 0.1 10^3/uL (0.0-0.1); BASOPHILS % (AUTO) 0.9 %; EOSINOPHILS # (AUTO) 0.8 10^3/uL (0.0-0.7); EOSINOPHILS % (AUTO) 12.1 %; HCT - HEMATOCRIT 35.8 % (42.0-52.0); HGB - HEMOGLOBIN 11.6 g/dL (14.0-18.0); LYMPHOCYTES # (AUTO) 1.1 10^3/uL (1.5-3.5); LYMPHOCYTES % (AUTO) 16.5 %; MEAN CORPUSCULAR HEMOGLOBIN 32.2 pg (27.0-31.0); MEAN CORPUSCULAR HGB CONC 32.4 g/dL (32.0-36.0); MEAN CORPUSCULAR VOLUME 99.4 fL (80.0-94.0); MEAN PLATELET VOLUME 9.1 fL (7.4-11.4); MONOCYTES # (AUTO) 0.5 10^3/uL (0.0-1.0); NEUTROPHILS # (AUTO) 4.1 10^3/uL (1.5-6.6); PLT - PLATELET COUNT 178 10^3/uL (130-450); RED CELL DISTRIBUTION WIDTH 13.3 % (12.0-15.0); WHITE BLOOD COUNT 6.6 x10^3/uL (4.8-10.8)
[2020-12-07] MEDS ORDERED: IPRATROPIUM/ALBUTEROL 3 ML NEB INH STA (17:43)
[2020-12-07] MEDS ORDERED: SODIUM CHLORIDE 0.9% 500 ML IV STA (17:43)
[2020-12-07 17:56] LABS: ALBUMIN 3.6 g/dL (3.2-5.5); ALBUMIN/GLOBULIN RATIO 1.4 (1.0-2.2); BILIRUBIN,TOTAL 0.7 mg/dL (0.2-1.0); CALCIUM 9.3 mg/dL (8.5-10.3); CREATININE 2.8 mg/dL (0.6-1.2); POTASSIUM 4.9 mmol/L (3.5-5.0); TOTAL PROTEIN 6.2 g/dL (6.7-8.2)
--- NOTE | 2020-12-07 18:04 | XRAY Report ---
PROCEDURE: Chest 1 View X-Ray INDICATIONS: Chest pain TECHNIQUE: One view of the chest was acquired. COMPARISON: 11/28/2016, 06/25/2017, 02/04/2018 FINDINGS: Surgical changes and devices: Changes of median sternotomy for CABG. Left chest wall to lead cardiac pacing device. Lungs and pleura: Stable blunting of the left costophrenic angle, as seen on numerous prior studies. Otherwise no findings of pleural effusion or pneumothorax. The lungs are clear. Mediastinum: Mediastinal contours appear normal. Heart size is normal. Bones and chest wall: No suspicious bony lesions. Overlying soft tissues appear unremarkable. IMPRESSION: Minimal left costophrenic angle blunting which was present on multiple prior studies dating back to , unchanged. This likely reflects some scarring although a chronic trace pleural effusion cou ld cause a similar appearance. Reviewed by: Carrington Meier MD on 12/07/2020 6:03 PM PDT Approved by: Carrington Meier MD on 12/07/2020 6:03 PM PDT Station ID: [id number]
[2020-12-07] MEDS ORDERED: methylPREDNISolone SUCCINATE 125 MG/2 ML VIAL IVP STA (18:22)
[2020-12-07 19:09] VITALS: BP 143/71
== END 2020-12-07 19:27 | disposition home or self-care (01) ==
LOC: ED 16:57
DX: J44.1 Chronic obstructive pulmonary disease with (acute) exacerbation (principal); E86.0 Dehydration; I10 Essential (primary) hypertension; Z95.1 Presence of aortocoronary bypass graft; Z95.0 Presence of cardiac pacemaker; Z87.891 Personal history of nicotine dependence
CPT/HCPCS: 36415; 80053; 83690; 84484; 85025; 93005; 94640; 96374; 99284

== ENCOUNTER 2020-12-13 17:37 | Observation (INO) | payer MEDICARE, BC ==
[2020-12-13] MEDS ORDERED: ALBUTEROL NEB 2.5 MG/3 ML INH STA (18:59)
[2020-12-13] MEDS ORDERED: IPRATROPIUM/ALBUTEROL 3 ML NEB INH STA (18:59)
--- NOTE | 2020-12-13 19:07 | ED Physician Documentation ---
History of Present Illness - Stated complaint Stated Complaint: WHEEZING,SOA,WEAKNESS - Chief complaint Chief Complaint: Resp - Additonal information Additional information: 75-year-old male presents emergency department for evaluation of what he believes is a COPD exacerbation. He was seen in this ER by my colleague on the of this month and had improvement after receiving a DuoNeb in the hospital. He is currently on a 10-day taper of prednisone. He has been using the albuterol nebulizer at home multiple times a day and does not feel that his shortness of breath is improved. He endorses a cough mostly dry. No fevers. Past medical history includes hypertension atrial fibrillation, pace maker, diabetes, COPD chronic kidney disease. He is anticoagulated on Eliquis. Review of Systems Constitutional: denies: Fever, Chills Eyes: reports: Reviewed and negative Ears: reports: Reviewed and negative Nose: reports: Reviewed and negative Throat: reports: Reviewed and negative Cardiac: denies: Chest pain / pressure Respiratory: reports: Dyspnea, Cough, Wheezing. denies: Hemoptysis GI: reports: Reviewed and negative : reports: Reviewed and negative Skin: reports: Reviewed and negative Musculoskeletal: reports: Reviewed and negative Neurologic: reports: Reviewed and negative Psychiatric: reports: Reviewed and negative PD PAST MEDICAL HISTORY - Past Medical History Cardiovascular: Hypertension, High cholesterol, MD Respiratory: COPD Endocrine/Autoimmune: None GI: GERD, Other (H. pylori) : Renal insuffiency HEENT: Other Psych: None Musculoskeletal: None - Past Surgical History Past Surgical History: Yes Cardiovascular: CABG, Pacemaker - Present Medications Home Medications: Ambulatory Orders Medication Instructions Recorded Confirmed Amiodarone [Pacerone] 200 mg PO QPM 06/18/14 06/25/17 Amlodipine Besylate [Norvasc] 2.5 mg PO DAILY 06/18/14 06/25/17 Ammonium Lactate 12 misc TOP BID 06/18/14 06/25/17 Atorvastatin Calcium 40 mg PO QPM 06/18/14 06/25/17 Cholecalciferol (Vitamin D3) 1,000 units PO DAILY 06/18/14 06/25/17 [Vitamin D-3] Clobetasol Propionate/Emoll 0.05 misc TOP DAILY 06/18/14 06/25/17 [Clobetasol Emollient 0.05% Crm] Metoprolol Succinate 25 mg PO DAILY 06/18/14 06/25/17 allopurinoL [Allopurinol] 300 mg PO DAILY 06/18/14 06/25/17 Insulin Glargine [Lantus Solostar] 8 unit SUBQ QDBREAKFAST 07/11/14 06/25/17 Apixaban [Eliquis] 5 mg PO BID 09/06/15 06/25/17 Albuterol Sulf [Ventolin Hfa 1 - 2 puffs INH Q4HR PRN #1 inhaler 11/28/16 06/25/17 Inhaler] Aspirin Chewable [St Binu 81 mg PO DAILY 06/25/17 06/25/17 Aspirin] Clobetasol Propionate/Emoll 06/25/17 [Clobetasol Emollient 0.05% Crm] Hydrocortisone 1% Oint 06/25/17 [Hydrocortisone] Ketoconazole 06/25/17 Losartan Potassium 25 mg PO DAILY 06/25/17 06/25/17 Tamsulosin [Flomax] 0.4 mg PO DAILY PM 06/25/17 06/25/17 predniSONE [Deltasone] 10 mg PO [id number] #42 tab 12/07/20 - Allergies Allergies/Adverse Reactions: Allergies Allergy/AdvReac Type Severity Reaction Status Date / Time Penicillins Allergy Unknown Verified 12/07/20 17:06 - Social History Does the pt smoke?: Yes Smoking Status: Former smoker Does the pt drink ETOH?: No Does the pt have substance abuse?: No PD ED PE EXPANDED - General General: Alert, No acute distress - Cardiac Cardiac: Regular Rhythm, Murmur Present, Radial strong equal, Pedal strong equal, Cap refill < 2 sec - Respiratory Respiratory: Wheezing (global expiratory wheeze). No: Distress, Retractions, Rhonchi - Abdomen Abdomen: Normal Bowel sounds. No: Tender to palpation - Back Back: Normal exam - Derm Derm: Normal color, Warm and dry - Extremities Extremities: Normal. No: Deformity, Tenderness, Pedal edema bilateral - Neuro Neuro: Alert and Oriented X 3, CNII-XII intact, Normal gait, Normal finger nose, Normal speech - GCS Eye Opening: Spontaneous Motor: Obeys Commands Verbal: Oriented Total: 15 Results - Vitals Vitals: Vital Signs - 24 hr 12/13/20 12/13/20 12/13/20 17:47 19:15 19:23 Temperature 36.8 C 36.2 C L Heart Rate 87 70 84 Respiratory 18 20 16 Rate Blood Pressure 140/100 H 149/74 H O2 Saturation 98 100 Oxygen O2 Source Room air - EKG (time done) 1844 Rate: Rate (enter#) (79) Rhythm: Paced [place]: LAD Intervals: Normal FL Ischemia: Q waves (inferior) Compare to prior EKG: Unchanged from prior EKG - Labs Labs: Laboratory Tests 12/13/20 12/13/20 12/13/20 19:15 19:15 19:15 WBC 8.6 RBC 3.71 L Hgb 11.8 L Hct 35.8 L MCV 96.5 H MCH 31.8 H MCHC 33.0 RDW 13.2 Plt Count 180 MPV 9.9 Neut # (Auto) 8.3 H Lymph # (Auto) 0.2 L Cuming # (Auto) 0.1 Eos # (Auto) 0.0 Baso # (Auto) 0.0 Absolute Nucleated RBC 0.00 Band Neuts % (Manual) Not Reportable Abnorm Lymph % (Manual) Not Reportable Nucleated RBC % 0.0 Neutrophils # (Manual) Not Reportable Lymphocytes # (Manual) Not Reportable Monocytes # (Manual) Not Reportable Eosinophils # (Manual) Not Reportable Basophils # (Manual) Not Reportable Differential Comment MANUAL=AUTO DIFF Manual Slide Review Indicated Platelet Estimate NORMAL (130-450,000) Platelet Morphology NORMAL APPEARANCE RBC Morph Micro Appear 1+ ACANTHOCYTES Sodium 133 L Potassium 6.8 H* Chloride 106 Carbon Dioxide 21 Anion Gap 6.0 BUN 61 H Creatinine 2.5 H Estimated GFR (MDRD) 25 L Glucose 387 H Calcium 9.0 Total Bilirubin 0.5 AST 20 ALT 43 Alkaline Phosphatase 98 Troponin I High Sens 12.3 Total Protein 6.0 L Albumin 3.5 Globulin 2.5 Albumin/Globulin Ratio 1.4 Lipase Not Reportable PD MEDICAL DECISION MAKING - ED course Complexity details: reviewed old records, reviewed results, re-evaluated patient, considered differential, d/w patient ED course: 75-year-old male return to the emergency department for evaluation of persistent shortness of breath. Seen in this ER 6 days ago diagnosed with COPD exacerbation and started on a 10-day steroid taper. However patient has been using the albuterol nebulizers at home without effective relief and when he presented he was audibly wheezy though not tachypneic or hypoxic. He was given albuterol and Atrovent nebulizers which did markedly improve his shortness of breath and his wheeze. Unfortunately screening labs did reveal an elevated potassium of 6.8. This is in the setting of chronic kidney disease. EKG initially obtained on presentation shows a paced rhythm so no further evaluation of the EKG regarding hyperkalemia is able to be completed. We did order 1 g of calcium gluconate as well as 10 units of insulin and will repeat his electrolytes in a few hours. Given the persistent COPD exacerbation as well as the hyperkalemia in the setting of chronic kidney disease patient was presented to Dr. Varela for observation admission and he is graciously accepted. Patient was made aware of this and is agreeable to coming into the hospital. Departure - Departure Disposition: ED Place in Observation Clinical Impression: COPD exacerbation, Hyperkalemia, Paced cardiac rhythm CKD (chronic kidney disease) Qualifiers: Chronic kidney disease stage: stage 3 (moderate) Chronic kidney disease stage 3 subtype: unspecified whether 3a or 3b Qualified Code(s): N18.30 - Chronic kidney disease, stage 3 unspecified
--- NOTE | 2020-12-13 19:13 | XRAY Report ---
PROCEDURE: Chest 1 View X-Ray INDICATIONS: Chest Pain TECHNIQUE: One view of the chest was acquired. COMPARISON: Chest x-ray 12/07/2020, 06/25/2017, 02/04/2018 FINDINGS: Surgical changes and devices: Pacemaker and sternal wires. Lungs and pleura: There is unchanged blunting of the left costophrenic angle. Mediastinum: Mediastinal contours appear normal. Heart size is enlarged. Bones and chest wall: No suspicious bony lesions. Overlying soft tissues appear unremarkable. IMPRESSION: Stable appearance of normal left effusion versus scarring, with scarring favored given present on mul tiple prior exams. Reviewed by: Shelbie Moon MD on 12/13/2020 7:12 PM PDT Approved by: Shelbie Moon MD on 12/13/2020 7:12 PM PDT Station ID: [id number]
[2020-12-13 19:24] LABS: HCT - HEMATOCRIT 35.8 % (42.0-52.0); HGB - HEMOGLOBIN 11.8 g/dL (14.0-18.0); LYMPHOCYTES # (AUTO) 0.2 10^3/uL (1.5-3.5); LYMPHOCYTES % (AUTO) 2.3 %; MEAN CORPUSCULAR HEMOGLOBIN 31.8 pg (27.0-31.0); MEAN CORPUSCULAR VOLUME 96.5 fL (80.0-94.0); MEAN PLATELET VOLUME 9.9 fL (7.4-11.4); MONOCYTES # (AUTO) 0.1 10^3/uL (0.0-1.0); MONOCYTES % (AUTO) 0.9 %; NEUTROPHILS # (AUTO) 8.3 10^3/uL (1.5-6.6); NEUTROPHILS % (AUTO) 95.9 %; PLT - PLATELET COUNT 180 10^3/uL (130-450); RED BLOOD COUNT 3.71 10^6/uL (4.70-6.10); RED CELL DISTRIBUTION WIDTH 13.2 % (12.0-15.0); WHITE BLOOD COUNT 8.6 x10^3/uL (4.8-10.8)
[2020-12-13 19:28] LABS: SLIDE REVIEW? Indicated
[2020-12-13 19:43] LABS: ALBUMIN 3.5 g/dL (3.2-5.5); ALBUMIN/GLOBULIN RATIO 1.4 (1.0-2.2); ALKALINE PHOSPHATASE 98 IU/L (42-121); ALT ALANINE AMINOTRANSFERASE 43 IU/L (10-60); AST ASPARTATE AMINOTRANSFERASE 20 IU/L (10-42); BILIRUBIN,TOTAL 0.5 mg/dL (0.2-1.0); BUN - BLOOD UREA NITROGEN 61 mg/dL (6-20); CARBON DIOXIDE - CO2 21 mmol/L (21-32); CHLORIDE 106 mmol/L (101-111); CREATININE 2.5 mg/dL (0.6-1.2); GFR - MDRD 25 (>89); GLUCOSE 387 mg/dL (70-100); SODIUM 133 mmol/L (135-145)
[2020-12-13 19:45] LABS: POTASSIUM 6.8 mmol/L (3.5-5.0)
[2020-12-13] MEDS ORDERED: INSULIN REGULAR HUMAN 100 UNIT/1 ML 10 ML MDV IVP STA (19:52)
[2020-12-13] MEDS ORDERED: CALCIUM GLUCONATE 1000 MG/10 ML VIAL IVP STA (19:52)
[2020-12-13] MEDS ORDERED: SODIUM CHLORIDE 0.9% 1,000 ML IV STA (19:52)
[2020-12-13] MEDS ORDERED: ONDANSETRON 4 MG/2 ML VIAL IVP PRN (19:55)
[2020-12-13] MEDS ORDERED: SODIUM CHLORIDE FLUSH 0.9% 10 ML SYRINGE IVP PRN (19:55)
[2020-12-13] MEDS ORDERED: ACETAMINOPHEN 325 MG TABLET PO PRN (19:55)
[2020-12-13] MEDS ORDERED: ONDANSETRON ODT 4 MG TABLET TL PRN (19:55)
[2020-12-13] MEDS ORDERED: ALBUTEROL NEB 2.5 MG/3 ML INH PRN (19:57)
[2020-12-13] MEDS ORDERED: cefTRIAXone 1 GM in SODIUM CHLORIDE 0.9% MINIBAG 100 ML IV STA (19:59)
[2020-12-13 20:18] LABS: PLATELET ESTIMATE, MANUAL NORMAL (130-450,000) (NORMAL); PLATELET MORPHOLOGY NORMAL APPEARANCE (NORMAL)
[2020-12-13 20:20] LABS: DIFFERENTIAL COMMENT MANUAL=AUTO DIFF
[2020-12-13] MEDS ORDERED: cefTRIAXone 1 GM VIAL ONE (20:29)
[2020-12-13] MEDS ORDERED: methylPREDNISolone SUCCINATE 40 MG/ML VIAL IVP SCH (21:00)
--- NOTE | 2020-12-13 21:12 | HISTORY & PHYSICAL EXAMINATION ---
Chief Complaint - Chief Complaint Chief Complaint: Dizziness History of Present Illness - Admitted From Admitted From:: Home - History Obtained From Records Reviewed: Yes History obtained from: Patient, ER Physician, EMR - History of Present Illness HPI Comment/Other: This is a 75-year-old male with a past medical history significant for COPD, atrial fibrillation with pacemaker in place, CKD stage IV, insulin-dependent diabetes mellitus who presents today due to dizziness. He states he has been present for the past 6 months. He states he was seen about 2 weeks ago and [place] for a possible TIA as he had a vertigo-like symptoms. MRI could not be obtained due to his pacemaker. He states he was seen in the ER last week for dizziness and diagnosed with a COPD exacerbation. He was started on prednisone which he has been taking. He states he still feels dizzy at times and short of breath. He denies any syncope. He reports he feels more short of breath with exertion and that he also has wheezing. He has had similar symptoms in the past which improved with prednisone and antibiotics but he was not prescribed antibiotics at this time. He reports his blood sugars have also been poorly controlled since starting prednisone. They have been on average greater than 300. He states they are normally controlled at less than 130. He takes 14 units of Lantus in the morning. He reports his blood pressure is usually quite controlled. He does not take losartan as it was stopped a few weeks ago at a hospital in [place] for unclear reasons. He saw his materials scientist yesterday, Dr. Rivera who reportedly started him on doxazosin. The patient reports no weakness but does complain of some bilateral hand numbness. He denies any neck pain. He reports no chest pain, fevers. He states he always feels cold. He has a nonproductive cough. Denies any lower extremity edema. He has been trying to drink plenty of fluid. He has been urinating quite a bit over this past few days. In the emergency department, he was found to be afebrile and hemodynamically stable. His lab significant for a potassium of 6.8. His BUN was 61 and his creatinine 2.5. Blood glucose was 387. His EKG showed a paced rhythm. He was given 10 units of IV insulin and calcium gluconate. Given his hyperkalemia, medicine was consulted to place the patient in observation. I did discuss goals of care with the patient and he would like to be a DNR. History - Past Medical History Cardiovascular: reports: Hypertension, High cholesterol, [place], Atrial fibrillation Respiratory: reports: COPD Endocrine/Autoimmune: reports: None GI: reports: GERD, Other (H. pylori) : reports: Benign prostate hypertrophy, Renal insuffiency Psych: reports: None Musculoskeletal: reports: None MRSA Hx?: No - Past Surgical History Cardiovascular: reports: CABG, Pacemaker - Family & Social History Family History Comment/Other: Both of his parents had end-stage renal disease and required dialysis. He is not sure if they were diabetic or not. Living arrangement: At home Living Situation: With spouse/s.o. Social History Notes: He lives at home with his . He smoked a pack a day for 40 years but quit over 20 years ago. Meds/Allgy - Home Medications Home Medications: Ambulatory Orders Medication Instructions Recorded Confirmed Amiodarone [Pacerone] 200 mg PO QPM 06/18/14 06/25/17 Amlodipine Besylate [Norvasc] 2.5 mg PO DAILY 06/18/14 06/25/17 Ammonium Lactate 12 misc TOP BID 06/18/14 06/25/17 Atorvastatin Calcium 40 mg PO QPM 06/18/14 06/25/17 Cholecalciferol (Vitamin D3) 1,000 units PO DAILY 06/18/14 06/25/17 [Vitamin D-3] Clobetasol Propionate/Emoll 0.05 misc TOP DAILY 06/18/14 06/25/17 [Clobetasol Emollient 0.05% Crm] Metoprolol Succinate 25 mg PO DAILY 06/18/14 06/25/17 allopurinoL [Allopurinol] 300 mg PO DAILY 06/18/14 06/25/17 Insulin Glargine [Lantus Solostar] 8 unit SUBQ QDBREAKFAST 07/11/14 06/25/17 Apixaban [Eliquis] 5 mg PO BID 09/06/15 06/25/17 Albuterol Sulf [Ventolin Hfa 1 - 2 puffs INH Q4HR PRN #1 inhaler 11/28/16 06/25/17 Inhaler] Aspirin Chewable [St Binu 81 mg PO DAILY 06/25/17 06/25/17 Aspirin] Clobetasol Propionate/Emoll 06/25/17 [Clobetasol Emollient 0.05% Crm] Hydrocortisone 1% Oint 06/25/17 [Hydrocortisone] Ketoconazole 06/25/17 Losartan Potassium 25 mg PO DAILY 06/25/17 06/25/17 Tamsulosin [Flomax] 0.4 mg PO DAILY PM 06/25/17 06/25/17 predniSONE [Deltasone] 10 mg PO [id number] #42 tab 12/07/20 - Allergies Allergies/Adverse Reactions: Allergies Allergy/AdvReac Type Severity Reaction Status Date / Time Penicillins Allergy Unknown Verified 12/07/20 17:06 Review of Systems - Constitutional Constitutional: reports: Chills. denies: Fever, Weakness - Ears, Nose & Throat Ears, Nose & Throat: denies: Nasal discharge, Nasal congestion - Cardiovascular Cariovascular: reports: Lightheadedness, Exertional dyspnea, Decr. exercise tolerance. denies: Palpitations, Chest pain, Edema, Syncope - Respiratory Respiratory: reports: Cough, SOB with exertion. denies: Sputum production, SOB at rest - Gastrointestinal Gastrointestinal: denies: Abdominal pain, Diarrhea, Nausea, Vomiting - Genitourinary Genitourinary: denies: Dysuria, Frequency, Urgency - Musculoskeletal Musculoskeletal: denies: Muscle pain, Back pain, Limited range of motion, Muscle weakness - Neurological Neurological: reports: Dizziness, Numbness. denies: General weakness, Focal weakness, Headache - Endocrine Endocrine: reports: Polyuria. denies: Polydypsia - All Other Systems All Other Systems: reports: Reviewed and negative Prior Level of Functionality: He is independent with his ADLs. Exam - Vital Signs Reviewed Vital Signs: Yes Vital Signs: Vital Signs x48h Temp Pulse Resp BP Pulse Ox 12/13/20 19:23 36.2 C L 84 16 149/74 H 100 12/13/20 19:15 70 20 12/13/20 17:47 36.8 C 87 18 140/100 H 98 - Physical Exam General Appearance: positive: No acute distress, Alert Eyes Bilateral: positive: Normal inspection, Conjunctivae nml ENT: positive: ENT inspection nml Neck: positive: Nml inspection Respiratory: positive: No respiratory distress, Wheezes (Faint expiratory wheezes.). negative: Rhonchi Cardiovascular: positive: Regular rate & rhythm, No murmur. negative: Tachycardia Abdomen: positive: Non-tender, No distention. negative: Tenderness Skin: positive: Warm, Dry Extremities: positive: Pedal edema (Trace pitting edema in bilateral lower extremities.) Conclusion/Plan - Problem List (1) Hyperkalemia Conclusion/Plan: His potassium is elevated at 6.8. This is likely multifactorial and related to his CKD, diabetes with hyperglycemia. His EKG reveals a paced rhythm. He was given IV insulin and calcium gluconate in the emergency department. We'll give him a dose of Kayexalate tonight. We will confirm that he is not on losartan. We'll recheck a BMP this evening and once again tomorrow morning. (2) COPD exacerbation Conclusion/Plan: He continues have evidence of a mild COPD exacerbation. Given he is placed in observation for hyperkalemia, we will continue him on oral prednisone 40 mg daily. We will give him a dose of ceftriaxone IV today given his lack of significant improvement. Continue with duo nebs 4 times daily and albuterol as needed. He will need appropriate inhaler therapy on discharge and will look to prescribe him tiotropium for maintenance therpay as he is currently only using albuterol monotherpay. (3) CKD (chronic kidney disease), stage IV Conclusion/Plan: He has CKD stage IV likely related to his diabetes. His renal function is currently at baseline. He does have hyperkalemia as mentioned above. We'll hold his losartan given the hyperkalemia. Continue outpatient follow-up with his materials scientist, Dr. Rivera. (4) Diabetes mellitus with hyperglycemia Conclusion/Plan: His blood glucose is poorly controlled due to use of prednisone. We will resume his home dose of Lantus and add sliding scale. We will hope to discontinue the prednisone over the next couple of days as his COPD exacerbation resolves. He may need an increased dose of Lantus over the next few days on discharge. Carb controlled diet. (5) Dizziness Conclusion/Plan: I suspect this is likely related to his COPD exacerbation and his dyspnea. Initial EKG reveals a paced rhythm. Troponin is unremarkable. We will check orthostatics and monitor on telemetry. Treat his underlying COPD exacerbation. Low suspicion for stroke/TIA at this time and so we will hold off on imaging. (6) Hypertension Conclusion/Plan: Resume his home hypertensives once confirmed by pharmacy. (7) Hypothyroidism Conclusion/Plan: Continue Synthroid. (8) Coronary artery disease Conclusion/Plan: He has known coronary artery disease with CABG in the past. We will continue his home aspirin and statin. - Lab Results Lab results reviewed: Yes Fish Bones: 12/13/20 19:15 12/13/20 19:15 - Diagnostic Imaging Results Diagnostic Imaging Results: positive: Final report reviewed - EKG Results EKG Interpreted Independently: Yes EKG Comparison: Changed from prior EKG EKG Findings: EKG reveals a paced rhythm. Core Measures - Anticipated LOS I expect patient to be DC'd or transferred within 96 hours.: Yes - Issues Hospital Issues and Management Plan: 75-year old male who was being treated on outpatient basis for COPD exacerbation presents with dizziness. Found to be hyperkalemic still with a mild COPD exacerbation. Placed in observation for further management including Kayexalate, insulin, calcium gluconate and trending of labs. - DVT/VTE - Prophylaxis VTE/DVT Device ordered at admit?: No VTE/DVT Prophylaxis med ordered at admit?: Yes
[2020-12-13] MEDS: SODIUM CHLORIDE 0.9% 1,000 ML IV SCH (21:49)
[2020-12-13 22:00] LABS: B. PARAPERTUSSIS- RESP PCR PAN NOT DETECTED; B. PERTUSSIS- RESP PCR PANEL NOT DETECTED; C. PNEUMONIAE- RESP PCR PANEL NOT DETECTED; CORONAVIRUS 229E-RESP PCR NOT DETECTED; CORONAVIRUS HKU1-RESP PCR NOT DETECTED; CORONAVIRUS NL63-RESP PCR NOT DETECTED; CORONAVIRUS OC43-RESP PCR NOT DETECTED; HUMAN METAPNEUMOVIRUS NOT DETECTED; INFLUENZA A- RESP PCR PANEL NOT DETECTED; INFLUENZA B - RESP PCR PANEL NOT DETECTED; M. PNEUMONIAE- RESP PCR PANEL NOT DETECTED; PARAINFLUENZA VIRUS 1 NOT DETECTED; PARAINFLUENZA VIRUS 2 NOT DETECTED; PARAINFLUENZA VIRUS 3 NOT DETECTED; PARAINFLUENZA VIRUS 4 NOT DETECTED; RHINOVIRUS/ENTEROVIRUS NOT DETECTED; RSV- RESP PCR PANEL NOT DETECTED; SARS-CoV-2 -RESP PCR PANEL NOT DETECTED
[2020-12-13] MEDS ORDERED: TAMSULOSIN 0.4 MG CAPSULE PO SCH (22:00)
[2020-12-13] MEDS ORDERED: SODIUM POLYSTYRENE SULFONATE 15 GM/60 ML BOTTLE PO ONE (22:10)
[2020-12-13] MEDS: IPRATROPIUM/ALBUTEROL 3 ML NEB INH SCH (22:45)
[2020-12-13 22:47] LABS: CREATININE 2.3 mg/dL (0.6-1.2); POTASSIUM 5.8 mmol/L (3.5-5.0)
[2020-12-14] MEDS: SODIUM CHLORIDE FLUSH 0.9% 10 ML SYRINGE IVP SCH ×2 (03:03→09:28)
[2020-12-14] MEDS: SODIUM CHLORIDE 0.9% 1,000 ML IV SCH (05:58)
[2020-12-14 07:33] LABS: CALCIUM 8.5 mg/dL (8.5-10.3); CREATININE 2.2 mg/dL (0.6-1.2); POTASSIUM 5.5 mmol/L (3.5-5.0)
[2020-12-14] MEDS: IPRATROPIUM/ALBUTEROL 3 ML NEB INH SCH ×2 (07:33→11:29)
[2020-12-14 07:49] LABS: BASOPHILS % (AUTO) 0.1 %; HCT - HEMATOCRIT 32.8 % (42.0-52.0); HGB - HEMOGLOBIN 10.8 g/dL (14.0-18.0); LYMPHOCYTES # (AUTO) 0.2 10^3/uL (1.5-3.5); MEAN CORPUSCULAR HEMOGLOBIN 31.6 pg (27.0-31.0); MEAN CORPUSCULAR HGB CONC 32.9 g/dL (32.0-36.0); MEAN CORPUSCULAR VOLUME 95.9 fL (80.0-94.0); MEAN PLATELET VOLUME 10.2 fL (7.4-11.4); MONOCYTES # (AUTO) 0.1 10^3/uL (0.0-1.0); MONOCYTES % (AUTO) 0.6 %; NEUTROPHILS # (AUTO) 9.6 10^3/uL (1.5-6.6); NEUTROPHILS % (AUTO) 96.6 %; PLT - PLATELET COUNT 169 10^3/uL (130-450); RED BLOOD COUNT 3.42 10^6/uL (4.70-6.10); RED CELL DISTRIBUTION WIDTH 13.2 % (12.0-15.0); WHITE BLOOD COUNT 9.9 x10^3/uL (4.8-10.8)
[2020-12-14] MEDS ORDERED: INSULIN ASPART 300 UNIT/3 ML PEN SUBQ SCH ×2 (08:00→12:10)
[2020-12-14] MEDS ORDERED: INSULIN GLARGINE 300 UNIT/3 ML PEN SUBQ SCH ×2 (08:00)
[2020-12-14] MEDS ORDERED: predniSONE 20 MG TABLET PO SCH (08:00)
--- NOTE | 2020-12-14 08:14 | Discharge Plan ---
Discharge Plan Problem Reviewed?: Yes Disposition: Home, Self Care Condition: Fair Prescriptions: Fluticasone/Salmeterol [Advair Hfa 115-21 Mcg Inhaler] 8 gm IH BID 30 Days #1 inhaler cefUROXime axetiL [Ceftin] 500 mg PO Q12H 3 Days #6 tablet Tiotropium Strawn [Spiriva Respimat] 4 gm IH DAILY 30 Days #30 inhaler Diet: Regular (Low Potassium diet) Activity Restrictions: Activity as Tolerated Shower Restrictions: No Driving Restrictions: No Instruction Topics: COPD Inhalers Health Concerns: You were briefly hospitalized to treat your very high potassium level, which is a dangerous thing to have. The potassium has been lowered and you are being discharged. Please eat foods that are low in potassium, do not take the Losartan, and follow any other directions from your kidney specialist also. You received a dose of IV steroids and IV antibiotic and nebulizer treatments for your COPD. You are being prescribed new Advair inhaler (twice a day) and new Spiriva inhaler (once a day) as "maintenance therapy" for your lungs. AND, you should continue to use your home inhaler for "rescue therapy" (4-times a d ay). You are also being prescribed to take 3 more days of antibiotic, Ceftin. Finish the Prednisone on the tapering schedule, as you were doing. All the new prescriptions were electronically sent to your [facility] pharmacy in [place]. Please resume all your other prehospital medications. The CT scan of your neck DID SHOW significant narrowings, which may be the cause of your numbness and dizziness trouble. You will need to see a Spreading Machine Operator. You need a referral from your Primary Care Provider to see a specialist. Plan of Treatment: As above. Care Goals: Improvement in symptoms and stabilization are the goals. Assessment: The patient understands and is agreeable with the plan. Additional Instructions or Follow Up instructions: If you have new or worsening symptoms, call your Primary Care Provider for advice or come to the ER. No Smoking: If you smoke, Please STOP! Call for help. Follow-up with: Bryce Reyes MD [Primary Care Provider] -
[2020-12-14] MEDS: INSULIN ASPART 300 UNIT/3 ML PEN SUBQ SCH ×2 (08:22→14:19)
[2020-12-14] MEDS ORDERED: ASPIRIN CHEW 81 MG TABLET PO SCH (09:00)
[2020-12-14] MEDS ORDERED: APIXABAN 5 MG TABLET PO SCH (09:00)
[2020-12-14] MEDS ORDERED: METOPROLOL SUCCINATE 25 MG TABLET PO SCH (09:00)
[2020-12-14] MEDS ORDERED: cefTRIAXone 1 GM in SODIUM CHLORIDE 0.9% MINIBAG 100 ML IV SCH (09:00)
[2020-12-14] MEDS ORDERED: amLODIPine 5 MG TABLET PO SCH (09:00)
--- NOTE | 2020-12-14 10:03 | CT Report ---
PROCEDURE: CERVICAL SPINE WO INDICATIONS: numbness of arms, bilat TECHNIQUE: Noncontrast 3 mm thick sections acquired from the skull base to the T4 level. Sagittal and coronal r eformats were then constructed. For radiation dose reduction, the following was used: automated exp osure control, adjustment of mA and/or kV according to patient size. COMPARISON: None. FINDINGS: Image quality: There is streak artifact through the shoulders. Bones: No fractures or dislocations. Visualized superior ribs are intact. Prominent degenerative changes are seen, with moderate to severe disc space narrowing at C3-C4, moder ate disc space narrowing at C4-C5 and moderate to severe disc space narrowing at C5-C6 and C6-C7. Mod erate to severe bilateral neuroforaminal narrowing can be seen throughout the lower cervical spine. T here is at least moderate central canal narrowing seen at the C4-C5 level and the C5-C6 level. There is reversal of the normal cervical lordosis, with the apex at the C4 level. Soft tissues: Prevertebral soft tissues are normal in thickness. No paravertebral hematomas. No ap ical pneumothoraces. Left-sided pacer leads are seen. Advanced atherosclerotic calcification can be seen. An azygos lobe is incidentally noted. IMPRESSION: Prominent cervical spine degenerative changes are seen, which are worst inferiorly. Incidental note is made of: Pacer device Prominent atherosclerotic calcification Azygos lobe Reviewed by: Luis Fernando Pierson MD on 12/14/2020 9:02 AM [facility] Approved by: Luis Fernando Pierson MD on 12/14/2020 9:02 AM [facility] Station ID: [id number]
[2020-12-14] MEDS ORDERED: INSULIN REGULAR HUMAN 300 UNIT/3 ML VIAL IVP ONE (10:14)
[2020-12-14] MEDS ORDERED: DEXTROSE 50% ABBOJECT 25 GM/50 ML SYRINGE IVP ONE (10:15)
--- NOTE | 2020-12-14 11:55 | DISCHARGE SUMMARY ---
Discharge Summary Admit Date: 12/13/20 Discharge Date: 12/14/20 Discharging Provider: Dr Marguerite Durant Primary Care Provider: Dr Bryce Reyes Code Status: Do Not Attempt Resuscitation Condition at Discharge: Fair Discharge Disposition: 01 Home, Self Care - HPI History of Present Illness: From the admission H&P of Dr Clay Varela: This is a 75-year-old male of descent with a past medical history significant for COPD, atrial fibrillation with pacemaker in place, CKD stage IV, insulin-dependent diabetes mellitus who presents today due to dizziness. He states this has been present for the past 6 months. He states he was seen about 2 weeks ago at [facility] for a possible TIA as he had vertigo-like symptoms. CT was done but MRI could not be obtained due to his pacemaker. He states he was seen in the ER last week for dizziness and diagnosed with a COPD exacerbation. He was started on Prednisone which he has been taking with a tapering schedule. He states he still feels dizzy at times and also short of breath. He denies any syncope. He reports he feels more short of breath with exertion and that he also has wheezing. He has had similar symptoms in the past which improved with Prednisone plus antibiotics, but he was not prescribed antibiotics at this time. He reports his blood sugars have also been poorly controlled since starting Prednisone. They have been on average greater than 300. He states they are normally controlled at less than 130. He takes 14 units of Lantus in the morning. He reports his blood pressure is usually well controlled. He does not take Losartan as it was stopped a few weeks ago and also his Executive Cyber Leader told him to stop Amlodipine. He saw his Executive Cyber Leader, Dr. Rivera, recently, who reportedly started him on Doxazosin. The patient reports no weakness but does complain of some bilateral hand numbness. He denies any neck pain. He reports no chest pain, fevers. He states he always feels cold. He has a nonproductive cough. Denies any lower extremity edema. He has been trying to drink plenty of fluid, water and coconut water. He has been urinating quite a bit over this past few days. In the emergency department, he was found to be afebrile and hemodynamically stable but scattered wheezing was heard. His labs were significant for a potassium of 6.8. His BUN was 61 and his creatinine 2.5. Blood glucose was 387. His EKG showed a paced rhythm. He was given 10 units of IV insulin and calcium gluconate. Because of his hyperkalemia, the Hospitalist was consulted to place the patient in Observation for further management. I did discuss goals of care with the patient and he would like to be a DNR. - HOSPITAL COURSE Hospital Course: (1) Hyperkalemia His potassium is elevated at 6.8. This is likely multifactorial and related to his CKD, and his diabetes with hyperglycemia. His EKG revealed a paced rhythm. He was given IV insulin and calcium gluconate in the emergency department. Aft er he was placed in Observation, he got further treatment with a dose of Kayexalate. Repeat potassium level was 5.5 the next morning. He received another treatment with insulin 10 units IV and D50 1 amp IV and a repeat potassium before discharge was 4.9. We kept him off the Losartan. He was given a list of foods that should be avoided (since he drinks orange juice and alot of coconut water, which contain high Potassium). (2) COPD exacerbation He continued to have evidence of a mild COPD exacerbation with active wheezing in all lung lamb. We gave oral prednisone 40 mg x1 and a dose of ceftriaxone IV, because of his lack of significant improvement. We ordered duo nebs 4 times daily and also albuterol neb as needed. At discharge, he was prescribed 3 more days of antibiotic, Ceftin 500 mg bid, also prescribed new Spiriva inhaler daily and Advair inhaler twice a day and instructed to use his ProAir as a rescue inhaler. He was advised to finish the tapering schedule of Prednisone that he was already doing before hospitalization. (3) CKD (chronic kidney disease), stage IV He has CKD stage IV, likely related to his diabetes. His renal function is currently at baseline. He does have hyperkalemia as mentioned above. We did no t order Losartan, given the hyperkalemia. Continue outpatient follow-up with his paper inserter, Dr. Rivera. (4) Dizziness Hisl EKG revealed a paced rhythm, telemetry was stable, troponin was unremarkable. We also checked orthostatic VS and these were normal. He underwent C-spine CT imaging, which was remarkable (see #5). He may need referral to Neurology, also may need Tommy maneuver done. (5) Degenerative joint disease of c-spine. He reported lightheadedness without an y room spinning and also bilateral hand and arm numbness. He underwent C-spine CT imaging, which was remarkable and showed significant disc narrowing at multiple levels. He will need evaluation by Neurology or Neuro-surgery/public health specialist, with a referral from the PCP. (6) Hypertension We resumed his home anti-hypertensive meds. (7) Diabetes mellitus with hyperglycemia His blood glucose is poorly controlled due to use ofpprednisone. We continued his home dose of Lantus and added sliding scale Reg Insulin. The Prednisone will be tapered to off over the next couple of days, as his COPD exacerbation resolves. He may need an increased dose of Lantus over the next few days. (8) Hypothyroidism Continued Synthroid. (9) Coronary artery disease He has known coronary artery disease with CABG in the past. We continued his home aspirin and statin. - ALLERGIES Allergies/Adverse Reactions: Allergies Allergy/AdvReac Type Severity Reaction Status Date / Time Penicillins Allergy Unknown Verified 12/07/20 17:06 - MEDICATIONS Home Medications: Ambulatory Orders Medication Instructions Recorded Confirmed Amiodarone [Pacerone] 200 mg PO QPM 06/18/14 06/25/17 Amlodipine Besylate [Norvasc] 2.5 mg PO DAILY 06/18/14 06/25/17 Ammonium Lactate 12 misc TOP BID 06/18/14 06/25/17 Atorvastatin Calcium 40 mg PO QPM 06/18/14 06/25/17 Cholecalciferol (Vitamin D3) 1,000 units PO DAILY 06/18/14 06/25/17 [Vitamin D3] Metoprolol Succinate 25 mg PO DAILY 06/18/14 06/25/17 allopurinoL [Allopurinol] 300 mg PO DAILY 06/18/14 06/25/17 Insulin Glargine [Lantus Solostar] 8 unit SUBQ QDBREAKFAST 07/11/14 06/25/17 Apixaban [Eliquis] 5 mg PO BID 09/06/15 06/25/17 Albuterol Sulf [Ventolin Hfa 1 - 2 puffs INH Q4HR PRN #1 inhaler 11/28/16 06/25/17 Inhaler] Aspirin Chewable [St Binu 81 mg PO DAILY 06/25/17 06/25/17 Aspirin] Ketoconazole 06/25/17 Tamsulosin [Flomax] 0.4 mg PO DAILY PM 06/25/17 06/25/17 predniSONE [Deltasone] 10 mg PO [id number] #42 tab 12/07/20 Doxazosin [Cardura] 6 mg PO 12/14/20 Fluticasone Propion/Salmeterol 12/14/20 [Wixela 250-50 Inhub] Fluticasone/Salmeterol [Advair Hfa 8 gm IH BID 30 Days #1 inhaler 12/14/20 115-21 Mcg Inhaler] Furosemide [Lasix] 40 mg PO DAILY 12/14/20 Levothyroxine [Synthroid] 75 mcg PO DAILY 12/14/20 Tiotropium [place] [Spiriva 4 gm IH DAILY 30 Days #30 inhaler 12/14/20 Respimat] Torsemide 20 mg PO DAILY 12/14/20 allopurinoL [Zyloprim] 100 mg PO BID 12/14/20 amLODIPine [Norvasc] 5 mg PO DAILY 12/14/20 carvediloL [Coreg] 12.5 mg 12/14/20 cefUROXime axetiL [Ceftin] 500 mg PO Q12H 3 Days #6 tablet 12/14/20 - PHYSICAL EXAM AT DISCHARGE General Appearance: positive: No acute distress, Alert Eyes Bilateral: positive: Normal inspection, EOMI ENT: positive: ENT inspection nml, No signs of dehydration Neck: positive: Nml inspection, No JVD Respiratory: positive: No respiratory distress, Wheezes (posterior, scattered) Cardiovascular: positive: Regular rate & rhythm, No murmur Abdomen: positive: Non-tender, No distention Skin: positive: Warm, Dry Extremities: positive: Non-tender, No pedal edema Neurologic/Psychiatric: positive: Oriented x3, Motor nml - LABS Result Diagrams: 12/14/20 06:55 12/14/20 12:30 - DIAGNOSTIC IMAGING Diagnostic Imaging Results: Final report reviewed - FOLLOW UP Follow Up: See PCP and Executive Cyber Leader as previously planned. - TIME SPENT Time Spent in Discharge (Minutes): 25
[2020-12-14 14:41] VITALS: BP 140/76
[2020-12-14] MEDS ORDERED: ATORVASTATIN 40 MG TABLET PO SCH (21:00)
[2020-12-14] MEDS ORDERED: AMIODARONE 200 MG TABLET PO SCH (21:00)
--- OUTSIDE RECORDS SUMMARY | 2020-12-24 20:14 | EXTERNAL MEDICAL SUMMARY RPT | Continuity of Care Document ---
:1945 Demographics Phone Unavailable Preferred Language Unknown Marital Status Unknown Mormonism Affiliation Unknown Race Unknown Ethnic Group Unknown Author Organization [facility] Address [address] [phone] Phone Problems date description facility [id number] Acute kidney failure, unspecified [facility] [id number] D[facility] [id number] [facility] Social History date description facility [id number]
== END 2020-12-14 14:43 | disposition home or self-care (01) ==
LOC: ED 17:37 → MS2 19:55
PROVIDERS: ADMIT Internal Medicine; ATTEND Internal Medicine
DX: E87.5 Hyperkalemia (principal); J44.1 Chronic obstructive pulmonary disease with (acute) exacerbation; E11.22 Type 2 diabetes mellitus with diabetic chronic kidney disease; E11.65 Type 2 diabetes mellitus with hyperglycemia; I12.9 Hypertensive chronic kidney disease with stage 1 through stage 4 chronic kidney disease, or unspecified chronic kidney disease; N18.4 Chronic kidney disease, stage 4 (severe); Z79.4 Long term (current) use of insulin; E03.9 Hypothyroidism, unspecified; I25.10 Atherosclerotic heart disease of native coronary artery without angina pectoris; Z95.1 Presence of aortocoronary bypass graft; Z95.0 Presence of cardiac pacemaker; I48.91 Unspecified atrial fibrillation; Z20.822 Contact with and (suspected) exposure to COVID-19; Z66 Do not resuscitate; Z87.891 Personal history of nicotine dependence; M47.812 Spondylosis without myelopathy or radiculopathy, cervical region; Z79.899 Other long term (current) drug therapy; N40.0 Benign prostatic hyperplasia without lower urinary tract symptoms; I25.2 Old myocardial infarction
CPT/HCPCS: 36415; 71045; 72125; 80048; 80053; 83690; 84132; 84484; 85025; 87631; 93005; 94640; 96365; 96375; 99283; 99285; A9270; G0378; J1815; J7512; 0202U

== ENCOUNTER 2020-12-24 07:00 | Outpatient (CLI) | payer MEDICARE, BC ==
[2020-12-24 17:54] LABS: HCT - HEMATOCRIT 32.6 % (42.0-52.0); HGB - HEMOGLOBIN 10.1 g/dL (14.0-18.0); MEAN CORPUSCULAR HEMOGLOBIN 31.5 pg (27.0-31.0); MEAN CORPUSCULAR VOLUME 101.6 fL (80.0-94.0); MEAN PLATELET VOLUME 10.8 fL (7.4-11.4); RED BLOOD COUNT 3.21 10^6/uL (4.70-6.10); WHITE BLOOD COUNT 7.5 x10^3/uL (4.8-10.8)
[2020-12-24 18:18] LABS: CALCIUM 8.5 mg/dL (8.5-10.3); CREATININE 2.3 mg/dL (0.6-1.2); POTASSIUM 5.5 mmol/L (3.5-5.0)
[2020-12-24 18:55] LABS: THYROID STIMULATING HORMONE 1.17 uIU/mL (0.34-5.60)
[2020-12-24 18:56] LABS: FREE T3 1.88 pg/mL (2.5-3.9)
[2020-12-24 18:57] LABS: FREE T4 (FREE THYROXINE) 1.34 ng/dL (0.58-1.64)
[2020-12-24 20:08] LABS: ESTIMATED AVERAGE GLUCOSE 171 mg/dL (70-100); HEMOGLOBIN A1c% 7.6 % (4.27-6.07)
== END 2020-12-24 23:59 | disposition home or self-care (01) ==
LOC: LAB.WCP 07:00
PROVIDERS: ATTEND Family Medicine
DX: E11.22 Type 2 diabetes mellitus with diabetic chronic kidney disease (principal); N18.30 Chronic kidney disease, stage 3 unspecified; E03.9 Hypothyroidism, unspecified; L40.50 Arthropathic psoriasis, unspecified; J45.909 Unspecified asthma, uncomplicated
CPT/HCPCS: 36415; 80048; 83036; 84439; 84443; 84481; 85027

== ENCOUNTER 2021-02-01 13:58 | Outpatient (CLI) | payer MEDICARE, BC ==
[2021-02-01 14:15] LABS: HCT - HEMATOCRIT 32.9 % (42.0-52.0); HGB - HEMOGLOBIN 10.6 g/dL (14.0-18.0); MEAN CORPUSCULAR HEMOGLOBIN 31.8 pg (27.0-31.0); MEAN CORPUSCULAR HGB CONC 32.2 g/dL (32.0-36.0); MEAN CORPUSCULAR VOLUME 98.8 fL (80.0-94.0); MEAN PLATELET VOLUME 9.5 fL (7.4-11.4); RED BLOOD COUNT 3.33 10^6/uL (4.70-6.10); RED CELL DISTRIBUTION WIDTH 13.2 % (12.0-15.0); WHITE BLOOD COUNT 10.6 x10^3/uL (4.8-10.8)
[2021-02-01 14:27] LABS: CALCIUM 8.4 mg/dL (8.5-10.3); CREATININE 2.7 mg/dL (0.6-1.2); PHOSPHORUS 3.6 mg/dL (2.5-4.6); POTASSIUM 4.6 mmol/L (3.5-5.0)
== END 2021-02-01 13:59 | disposition home or self-care (01) ==
LOC: LAB 13:58
PROVIDERS: ATTEND Internal Medicine Nephrology
DX: N05.9 Unspecified nephritic syndrome with unspecified morphologic changes (principal); D70.9 Neutropenia, unspecified; D63.1 Anemia in chronic kidney disease; E83.30 Disorder of phosphorus metabolism, unspecified; N25.81 Secondary hyperparathyroidism of renal origin
CPT/HCPCS: 36415; 80048; 83970; 84100; 85027

== ENCOUNTER 2021-02-25 14:40 | Outpatient (CLI) | payer MEDICARE, BC ==
[2021-02-25 18:32] LABS: THYROID STIMULATING HORMONE 5.84 uIU/mL (0.34-5.60)
[2021-02-25 18:34] LABS: FREE T4 (FREE THYROXINE) 1.12 ng/dL (0.58-1.64)
== END 2021-02-25 23:59 | disposition home or self-care (01) ==
LOC: LAB.WCP 14:40
PROVIDERS: ATTEND Internal Medicine Endocrinology, Diabetes & Metabolism
DX: E05.90 Thyrotoxicosis, unspecified without thyrotoxic crisis or storm (principal)
CPT/HCPCS: 36415; 84439; 84443

== ENCOUNTER 2021-04-22 08:00 | Outpatient (CLI) | payer MEDICARE, BC ==
[2021-04-22 13:18] LABS: BASOPHILS # (AUTO) 0.1 10^3/uL (0.0-0.1); BASOPHILS % (AUTO) 0.8 %; EOSINOPHILS # (AUTO) 0.7 10^3/uL (0.0-0.7); EOSINOPHILS % (AUTO) 9.9 %; HCT - HEMATOCRIT 40.4 % (42.0-52.0); HGB - HEMOGLOBIN 12.3 g/dL (14.0-18.0); LYMPHOCYTES % (AUTO) 13.4 %; MEAN CORPUSCULAR HGB CONC 30.4 g/dL (32.0-36.0); MEAN CORPUSCULAR VOLUME 98.5 fL (80.0-94.0); MONOCYTES # (AUTO) 0.6 10^3/uL (0.0-1.0); MONOCYTES % (AUTO) 8.6 %; NEUTROPHILS # (AUTO) 4.9 10^3/uL (1.5-6.6); NEUTROPHILS % (AUTO) 66.9 %; PLT - PLATELET COUNT 202 10^3/uL (130-450); RED CELL DISTRIBUTION WIDTH 13.3 % (12.0-15.0); WHITE BLOOD COUNT 7.3 x10^3/uL (4.8-10.8)
[2021-04-22 13:51] LABS: THYROID STIMULATING HORMONE 6.92 uIU/mL (0.34-5.60)
[2021-04-22 13:57] LABS: % IRON SATURATION 27 % (20-50); ALBUMIN 3.4 g/dL (3.2-5.5); ALKALINE PHOSPHATASE 116 IU/L (42-121); ALT ALANINE AMINOTRANSFERASE 29 IU/L (10-60); AST ASPARTATE AMINOTRANSFERASE 27 IU/L (10-42); BILIRUBIN,TOTAL 0.9 mg/dL (0.2-1.0); BUN - BLOOD UREA NITROGEN 40 mg/dL (6-20); CALCIUM 9.3 mg/dL (8.5-10.3); CARBON DIOXIDE - CO2 24 mmol/L (21-32); CHLORIDE 111 mmol/L (101-111); CHOL/HDL RATIO 3.2 (<5.0); CHOLESTEROL 167 mg/dL; CREATININE 2.4 mg/dL (0.6-1.2); GFR - MDRD 26 (>89); GLUCOSE 142 mg/dL (70-100); HDL CHOLESTEROL 53 mg/dL; IRON 79 ug/dL (45-182); LDL CHOLESTEROL,CALCULATED 94 mg/dL; LDL/HDL RATIO 1.8 (<3.6); POTASSIUM 5.3 mmol/L (3.5-5.0); SODIUM 143 mmol/L (135-145); TOTAL IRON BINDING CAPACITY 297 ug/dL (250-450); TOTAL PROTEIN 6.7 g/dL (6.7-8.2); TRANSFERRIN 212 mg/dL (180-329); TRIGLYCERIDES 99 mg/dL; VLDL CHOLESTEROL 20 mg/dL
[2021-04-22 13:57] LABS: FERRITIN 103.1 ng/mL (23.9-336.2)
[2021-04-22 14:14] LABS: ESTIMATED AVERAGE GLUCOSE 157 mg/dL (70-100); HEMOGLOBIN A1c% 7.1 % (4.27-6.07)
[2021-04-22 14:40] LABS: FREE T4 (FREE THYROXINE) 1.03 ng/dL (0.58-1.64)
== END 2021-04-22 23:59 | disposition home or self-care (01) ==
LOC: LAB.WCP 08:00
PROVIDERS: ATTEND Family Medicine
DX: I12.9 Hypertensive chronic kidney disease with stage 1 through stage 4 chronic kidney disease, or unspecified chronic kidney disease (principal); E11.29 Type 2 diabetes mellitus with other diabetic kidney complication; N18.31 Chronic kidney disease, stage 3a; E87.70 Fluid overload, unspecified; E87.5 Hyperkalemia; I25.10 Atherosclerotic heart disease of native coronary artery without angina pectoris; I48.0 Paroxysmal atrial fibrillation; E03.9 Hypothyroidism, unspecified; D70.9 Neutropenia, unspecified; D63.1 Anemia in chronic kidney disease; D50.0 Iron deficiency anemia secondary to blood loss (chronic)
CPT/HCPCS: 36415; 80048; 80053; 80061; 82728; 83036; 83540; 83721; 84439; 84443; 84466; 85025

== ENCOUNTER 2021-08-06 13:54 | Outpatient (CLI) | payer MEDICARE, BC ==
--- NOTE | 2021-08-06 17:17 | Ultrasound Report ---
PROCEDURE: Carotid Doppler Complete INDICATIONS: RIGHT CAROTID BRUIT TECHNIQUE: Color and pulse Doppler interrogation was performed of both carotid systems, with image documentation and velocity measurements. COMPARISON: Ultrasound dated 10/18/2019 FINDINGS: Right side: Brachial blood pressure: 154/60 mm Hg. Common carotid artery peak systolic velocity: 41 cm/sec. Internal carotid artery peak systolic velocity: 157 cm/sec. Internal carotid artery end diastolic velocity: 25 cm/sec. External carotid artery peak systolic velocity: 300 cm/sec. ICA/CCA peak systolic ratio: 3.5 . Wilkins scale imaging description: Calcified plaque at the bifurcation and proximal ICA Percent internal carotid artery stenosis: 50-69% . Vertebral artery: Flow direction is antegrade. Left side: Brachial blood pressure: 159/68 mm Hg. Common carotid artery peak systolic velocity: 55 cm/sec. Internal carotid artery peak systolic velocity: 90 cm/sec. Internal carotid artery end diastolic velocity: 21 cm/sec. External carotid artery peak systolic velocity: 188 cm/sec. ICA/CCA peak systolic ratio: 1.4 . Wilkins scale imaging description: Calcified plaque at the bifurcation and proximal ICA Percent internal carotid artery stenosis: Less than 50% . Vertebral artery: Flow direction is antegrade. IMPRESSION: Less than 50% left ICA stenosis 50-69% right ICA stenosis. The estimate of stenosis included in the report of the imaging study was calculated using the NASCET method Reviewed by: Rafiq Malloy MD on 08/06/2021 5:16 PM PST Approved by: Rafiq Malloy MD on 08/06/2021 5:16 PM PST Station ID: [id number]
--- NOTE | 2021-08-06 17:38 | Ultrasound Report ---
PROCEDURE: Bladder INDICATIONS: URINARY BLADDER OUTLET OBSTRUTION TECHNIQUE: Grayscale and color Doppler imaging was performed of the urinary bladder. COMPARISON: None. FINDINGS: Filled bladder has a volume of 72 cc. The wall is grossly normal in thickness and there are no visibl e masses or debris. The visible portion of the prostate gland is 4.8 x 3.7 x 3.8 cm for a volume of 3 5 cc. Bilateral ureteral jets are seen indicating distal ureteral patency. Post void volume is 0 cc. IMPRESSION: 1. No evidence of urinary retention. 2. The visible portion of the prostate gland is normal volume. Reviewed by: Eileen Robertson MD on 08/06/2021 5:36 PM PST Approved by: Eileen Robertson MD on 08/06/2021 5:36 PM PST Station ID: [id number]
== END 2021-08-06 13:55 | disposition home or self-care (01) ==
LOC: DI 13:54
PROVIDERS: ATTEND Family Medicine
DX: N32.0 Bladder-neck obstruction (principal); R06.89 Other abnormalities of breathing; I65.23 Occlusion and stenosis of bilateral carotid arteries
CPT/HCPCS: 93880

== ENCOUNTER 2021-08-16 09:53 | Outpatient (CLI) | payer MEDICARE, BC ==
[2021-08-16 10:20] LABS: HCT - HEMATOCRIT 36.4 % (42.0-52.0); HGB - HEMOGLOBIN 11.6 g/dL (14.0-18.0); MEAN CORPUSCULAR HEMOGLOBIN 31.3 pg (27.0-31.0); MEAN CORPUSCULAR HGB CONC 31.9 g/dL (32.0-36.0); MEAN CORPUSCULAR VOLUME 98.1 fL (80.0-94.0); RED BLOOD COUNT 3.71 10^6/uL (4.70-6.10); RED CELL DISTRIBUTION WIDTH 13.1 % (12.0-15.0); WHITE BLOOD COUNT 7.3 x10^3/uL (4.8-10.8)
[2021-08-16 10:32] LABS: CALCIUM 8.7 mg/dL (8.5-10.3); CREATININE 2.8 mg/dL (0.6-1.2); PHOSPHORUS 3.6 mg/dL (2.5-4.6); POTASSIUM 5.2 mmol/L (3.5-5.0)
[2021-08-16 11:10] LABS: CREATININE,URINE 142.8 mg/dL; MICROALBUMIN,URINE 407.7 mg/dL (0-300.0)
== END 2021-08-16 09:54 | disposition home or self-care (01) ==
LOC: LAB 09:53
PROVIDERS: ATTEND Family Medicine
DX: N05.9 Unspecified nephritic syndrome with unspecified morphologic changes (principal); D70.9 Neutropenia, unspecified; D63.1 Anemia in chronic kidney disease; E83.30 Disorder of phosphorus metabolism, unspecified; N25.81 Secondary hyperparathyroidism of renal origin; E89.5 Postprocedural testicular hypofunction; E11.22 Type 2 diabetes mellitus with diabetic chronic kidney disease; N18.31 Chronic kidney disease, stage 3a; I48.0 Paroxysmal atrial fibrillation
CPT/HCPCS: 36415; 80048; 82043; 82570; 83970; 84100; 84403; 85027

== ENCOUNTER 2021-08-22 07:28 | Outpatient (CLI) | payer MEDICARE, BC | END 2021-08-22 07:29 | disposition home or self-care (01) | LOC: DI.N 07:28 | PROVIDERS: ATTEND Family Medicine | DX: Z53.9 Procedure and treatment not carried out, unspecified reason (principal) ==

== ENCOUNTER 2021-08-22 07:55 | Outpatient (CLI) | payer MEDICARE, BC ==
--- NOTE | 2021-08-22 10:55 | XRAY Report ---
PROCEDURE: Elbow 3 View LT INDICATIONS: BURSITIS, ELBOW LEFT TECHNIQUE: 3 views of the elbow were acquired. COMPARISON: None FINDINGS: No acute fracture. Spurring at the olecranon is noted. There is anatomic alignment Scattered subchondral sclerosis and spurring. No definite joint space narrowing No elbow effusion seen. Mild cortical hypertrophy at the radial tuberosity IMPRESSION: Chronic degenerative changes as above. Spurring of the olecranon raising possibility of distal tricep s insertional tendinopathy. Cortical sclerosis and hypertrophy at the radial tuberosity raising possi bility of the distal biceps tendinopathy. If the patient's pain or other symptoms persist, consider further evaluation with MRI. Reviewed by: Rafiq Malloy MD on 08/22/2021 10:54 AM [facility] Approved by: Rafiq Malloy MD on 08/22/2021 10:54 AM [facility] Station ID: [id number]
== END 2021-08-22 23:59 ==
LOC: DI.N 07:55
PROVIDERS: ATTEND Family Medicine
DX: M19.022 Primary osteoarthritis, left elbow (principal); M77.8 Other enthesopathies, not elsewhere classified; M25.722 Osteophyte, left elbow

== ENCOUNTER 2021-10-14 16:21 | Emergency (ER) | payer MEDICARE, BC ==
[2021-10-14 16:54] LABS: BASOPHILS # (AUTO) 0.1 10^3/uL (0.0-0.1); BASOPHILS % (AUTO) 0.9 %; EOSINOPHILS % (AUTO) 13.7 %; HCT - HEMATOCRIT 34.1 % (42.0-52.0); HGB - HEMOGLOBIN 10.8 g/dL (14.0-18.0); LYMPHOCYTES # (AUTO) 1.3 10^3/uL (1.5-3.5); LYMPHOCYTES % (AUTO) 16.9 %; MEAN CORPUSCULAR HEMOGLOBIN 31.3 pg (27.0-31.0); MEAN CORPUSCULAR HGB CONC 31.7 g/dL (32.0-36.0); MEAN CORPUSCULAR VOLUME 98.8 fL (80.0-94.0); MEAN PLATELET VOLUME 9.5 fL (7.4-11.4); MONOCYTES # (AUTO) 0.7 10^3/uL (0.0-1.0); MONOCYTES % (AUTO) 9.6 %; NEUTROPHILS # (AUTO) 4.5 10^3/uL (1.5-6.6); NEUTROPHILS % (AUTO) 58.6 %; PLT - PLATELET COUNT 187 10^3/uL (130-450); RED BLOOD COUNT 3.45 10^6/uL (4.70-6.10); WHITE BLOOD COUNT 7.6 x10^3/uL (4.8-10.8)
[2021-10-14 16:57] LABS: SLIDE REVIEW? Indicated
[2021-10-14 17:11] LABS: ALBUMIN 2.8 g/dL (3.2-5.5); ALBUMIN/GLOBULIN RATIO 0.8 (1.0-2.2); BILIRUBIN,TOTAL 0.3 mg/dL (0.2-1.0); CALCIUM 8.2 mg/dL (8.5-10.3); CREATININE 2.8 mg/dL (0.6-1.2); POTASSIUM 5.3 mmol/L (3.5-5.0); TOTAL PROTEIN 6.2 g/dL (6.7-8.2)
[2021-10-14 17:29] LABS: BILIRUBIN,URINE NEGATIVE (NEGATIVE); GLUCOSE, URINE (UA) 100 mg/dL (NEGATIVE); KETONES,URINE (UA) NEGATIVE (NEGATIVE); LEUKOCYTE ESTERASE, URINE NEGATIVE (NEGATIVE); NITRITE,URINE NEGATIVE (NEGATIVE); OCCULT BLOOD,URINE TRACE-INTA (NEGATIVE); PROTEIN,URINE >=300 mg/dL (NEGATIVE); UROBILINOGEN,URINE 0.2 (NORMAL) E.U./dL (NORMAL)
[2021-10-14 17:36] LABS: DIFFERENTIAL COMMENT MANUAL=AUTO DIFF; PLATELET ESTIMATE, MANUAL NORMAL (130-450,000) (NORMAL); PLATELET MORPHOLOGY NORMAL APPEARANCE (NORMAL); RBC MORPHOLOGY (MULTIPLE) NORMAL APPEARANCE (NORMAL)
[2021-10-14 17:41] LABS: CLARITY,URINE CLEAR (CLEAR)
[2021-10-14 17:55] LABS: BACTERIA,URINE None Seen /HPF (None Seen); CASTS, URINE 0-2 Hyaline Casts /LPF; RBC,URINE None Seen /HPF (0-5); SQUAMOUS EPITHELIAL CELL,UR RARE Squamous (<= Few); WBC,URINE 0-3 /HPF (0-3)
--- NOTE | 2021-10-14 18:43 | CT Report ---
PROCEDURE: CT abdomen and pelvis without contrast INDICATIONS: diffuse abd pain, constipation TECHNIQUE: Noncontrast 5 mm thick sections acquired from the diaphragms to the symphysis. 5 mm lynn nal and sagittal reformats were then performed. For radiation dose reduction, the following was used : automated exposure control, adjustment of mA and/or kV according to patient size. COMPARISON: None. FINDINGS: Image quality: Excellent. ABDOMEN: Lung bases: There is a 5.5 cm wedge-shaped consolidation in the right lower lobe associated with a mo derate pleural effusion. Dense coronary artery vascular calcification present. Heart size is enlarged . Pacer leads present. Mediastinal vascular clips present Solid organs: Liver and spleen are normal in size. Gallbladder contracted. Pancreas is normal in c ontours. No adrenal nodules. Kidneys are normal in size, without hydronephrosis or nephrolithiasis. Right renal 3.1 cm hypodensity probably reflects cyst. No hydronephrosis bilaterally. There is left renal atrophy and dense vascular calcification present. Peritoneum and bowel: Unenhanced bowel loops demonstrate normal wall thickness and caliber. No free fluid or air. Moderate to fecal debris throughout the colon and rectum multiple diverticula arise f rom the right and proximal transverse colon. No evidence of acute diverticulitis. Normal appendix james ntified. Nodes and vessels: No retroperitoneal or mesenteric adenopathy by size criteria. Aorta and inferior vena cava are normal in caliber. Dense atherosclerotic vascular calcification noted involving the a bdominal aorta. Mild distal abdominal aortic aneurysm measures 2.9 cm. Miscellaneous: No ventral hernias. PELVIS: Genitourinary: Bladder wall thickness is normal. Miscellaneous: Large right inguinal hernia appears to contain a portion of the elongated bladder. Ass ociated bladder wall thickening in the right lateral bladder dome. Irregular. Bones: No suspicious bony lesions. No vertebral body compression fractures. Multilevel degenerativ e disc disease and arthropathy noted in the lower lumbar spine IMPRESSION: 1. Right lower lobe wedge-shaped consolidation and pleural effusion. While this may reflect rounded a telectasis or infection, underlying neoplasm is a differential, and follow-up to resolution advised. 2. Irregular bladder wall thickening associated with the right inguinal hernia. This could reflect a chronic infection or inflammation. Underlying neoplasm is also a consideration. Consider follow-up cy stoscopy. 3. Chronic findings include cardiomegaly, and dense vascular calcification, small infrarenal abdomina l aortic aneurysm 2.9 cm, degenerative disc disease and arthropathy. 4. Moderate to fecal debris in the rectum and sigmoid colon with right-sided diverticulosis without d iverticulitis. Reviewed by: Jacinto Serrano MD on 10/14/2021 5:41 PM [facility] Approved by: Jacinto Serrano MD on 10/14/2021 5:41 PM [facility] Station ID: [id number]
--- NOTE | 2021-10-14 19:05 | ED Physician Documentation ---
History of Present Illness - Stated complaint Stated Complaint: STOMACH PX - Chief complaint Chief Complaint: Abd Pain - History obtained from History obtained from: Patient - History of Present Illness Timing: How many weeks ago (1) Pain level max: 5 Pain level now: 4 - Additonal information Additional information: Patient is a 76-year-old male who presents to the emergency department complaining of abdominal pain. Sometimes is in the right lower quadrant, sometimes in the upper abdomen. He states he has had ongoing issues with constipation. He stopped his MiraLAX last week and has not had a bowel movement since. No vomiting. No fevers. He has a known right inguinal hernia that he is being followed by a surgeon with. Surgery is being planned. No fevers. No cough. No congestion. No chest pain. Review of Systems Constitutional: denies: Fever, Chills Throat: denies: Sore throat Cardiac: denies: Palpitations Respiratory: denies: Cough, Wheezing GI: reports: Constipation. denies: Nausea, Vomiting, Diarrhea, Hematemesis, Bloody / black stool : denies: Dysuria, Frequency, Hesitancy Skin: denies: Rash Musculoskeletal: denies: Neck pain, Back pain PD PAST MEDICAL HISTORY - Past Medical History Cardiovascular: Hypertension, High cholesterol, [place], Atrial fibrillation Respiratory: COPD Endocrine/Autoimmune: None GI: GERD, Other : Benign prostate hypertrophy, Renal insuffiency HEENT: Other Psych: None Musculoskeletal: None - Past Surgical History Past Surgical History: Yes Cardiovascular: CABG, Pacemaker - Present Medications Home Medications: Ambulatory Orders Medication Instructions Recorded Confirmed Amiodarone [Pacerone] 200 mg PO QPM 06/18/14 06/25/17 Amlodipine Besylate [Norvasc] 2.5 mg PO DAILY 06/18/14 06/25/17 Ammonium Lactate 12 misc TOP BID 06/18/14 06/25/17 Atorvastatin Calcium 40 mg PO QPM 06/18/14 06/25/17 Cholecalciferol (Vitamin D3) 1,000 units PO DAILY 06/18/14 06/25/17 [Vitamin D3] Metoprolol Succinate 25 mg PO DAILY 06/18/14 06/25/17 allopurinoL [Allopurinol] 300 mg PO DAILY 06/18/14 06/25/17 Insulin Glargine [Lantus Solostar] 8 unit SUBQ QDBREAKFAST 07/11/14 06/25/17 Apixaban [Eliquis] 5 mg PO BID 09/06/15 06/25/17 Albuterol Sulf [Ventolin Hfa 1 - 2 puffs INH Q4HR PRN #1 inhaler 11/28/16 06/25/17 Inhaler] Aspirin Chewable [St Binu 81 mg PO DAILY 06/25/17 06/25/17 Aspirin] Ketoconazole 06/25/17 Tamsulosin [Flomax] 0.4 mg PO DAILY PM 06/25/17 06/25/17 predniSONE [Deltasone] 10 mg PO [id number] #42 tab 12/07/20 Doxazosin [Cardura] 6 mg PO 12/14/20 Fluticasone Propion/Salmeterol 12/14/20 [Wixela 250-50 Inhub] Fluticasone/Salmeterol [Advair Hfa 8 gm IH BID 30 Days #1 inhaler 12/14/20 115-21 Mcg Inhaler] Furosemide [Lasix] 40 mg PO DAILY 12/14/20 Levothyroxine [Synthroid] 75 mcg PO DAILY 12/14/20 Tiotropium [place] [Spiriva 4 gm IH DAILY 30 Days #30 inhaler 12/14/20 Respimat] Torsemide 20 mg PO DAILY 12/14/20 allopurinoL [Zyloprim] 100 mg PO BID 12/14/20 amLODIPine [Norvasc] 5 mg PO DAILY 12/14/20 carvediloL [Coreg] 12.5 mg 12/14/20 cefUROXime axetiL [Ceftin] 500 mg PO Q12H 3 Days #6 tablet 12/14/20 Magnesium Citrate 296 ml PO ONCE PRN #296 ml 10/14/21 - Allergies Allergies/Adverse Reactions: Allergies Allergy/AdvReac Type Severity Reaction Status Date / Time Penicillins Allergy Unknown Verified 10/14/21 16:35 - Social History Does the pt smoke?: Yes Smoking Status: Current every day smoker Does the pt drink ETOH?: No Does the pt have substance abuse?: No PD ED PE NORMAL - Vitals Vital signs reviewed: Yes - General General: Alert and oriented X 3, No acute distress - HEENT HEENT: Moist mucous membranes - Neck Neck: Supple, no meningeal sign - Cardiac Cardiac: RRR - Respiratory Respiratory: No respiratory distress, Clear bilaterally - Abdomen Abdomen: Normal bowel sounds, Soft, Non tender, Non distended - Back Back: No spinal TTP - Derm Derm: Warm and dry - Extremities Extremities: No edema - Neuro Neuro: Alert and oriented X 3 - Psych Psych: Normal mood, Normal affect Results - Vitals Vitals: Vital Signs - 24 hr 10/14/21 10/14/21 10/14/21 16:30 18:08 20:10 Temperature 36.2 C L Heart Rate 86 72 80 Respiratory 16 18 19 Rate Blood Pressure 132/77 H 164/78 H 152/79 H O2 Saturation 100 98 99 Oxygen O2 Source Room air - Labs Labs: Laboratory Tests 10/14/21 10/14/21 10/14/21 16:40 16:46 16:46 WBC 7.6 RBC 3.45 L Hgb 10.8 L Hct 34.1 L MCV 98.8 H MCH 31.3 H MCHC 31.7 L RDW 14.0 Plt Count 187 MPV 9.5 Neut # (Auto) 4.5 Lymph # (Auto) 1.3 L [place] # (Auto) 0.7 Eos # (Auto) 1.0 H Baso # (Auto) 0.1 Absolute Nucleated RBC 0.00 Band Neuts % (Manual) Not Reportable Abnorm Lymph % (Manual) Not Reportable Nucleated RBC % 0.0 Neutrophils # (Manual) Not Reportable Lymphocytes # (Manual) Not Reportable Monocytes # (Manual) Not Reportable Eosinophils # (Manual) Not Reportable Basophils # (Manual) Not Reportable Differential Comment MANUAL=AUTO DIFF Manual Slide Review Indicated Platelet Estimate NORMAL (130-450,000) Platelet Morphology NORMAL APPEARANCE RBC Morph Micro Appear NORMAL APPEARANCE Sodium 142 Potassium 5.3 H Chloride 110 Carbon Dioxide 25 Anion Gap 7.0 BUN 33 H Creatinine 2.8 H Estimated GFR (MDRD) 22 L Glucose 145 H Calcium 8.2 L Total Bilirubin 0.3 AST 19 ALT 16 Alkaline Phosphatase 114 Total Protein 6.2 L Albumin 2.8 L Globulin 3.4 Albumin/Globulin Ratio 0.8 L Lipase 96 H Urine Color YELLOW Urine Clarity CLEAR Urine pH 6.0 Ur Specific [place] >=1.030 H Urine Protein >=300 H Urine Glucose (UA) 100 H Urine Ketones NEGATIVE Urine Occult Blood TRACE-INTA Urine Nitrite NEGATIVE Urine Bilirubin NEGATIVE Urine Urobilinogen 0.2 (NORMAL) Ur Leukocyte Esterase NEGATIVE Urine RBC None Seen Urine WBC 0-3 Ur Squamous Epith Cells RARE Squamous Urine Bacteria None Seen Urine Casts 0-2 Hyaline Casts Ur Microscopic Review INDICATED Urine Culture Comments NOT INDICATED - Rads (name of study) CT abdomen and pelvis Radiology: Final report received, EMP read contemporaneously, See rad report PD MEDICAL DECISION MAKING - ED course Complexity details: reviewed results, re-evaluated patient, considered differential, d/w patient ED course: Patient is very well-appearing, nontoxic. Afebrile. Tolerating p.o. without difficulty here. Will place on magnesium citrate in addition to his MiraLAX for constipation. Recommend he start his MiraLAX again. He does have a right lower lobe wedge-shaped consolidation with pleural effusion. Unclear what this represents. No clinical symptoms consistent with pneumonia, therefore antibiotics will be held. He will receive a dedicated chest CT with his doctor. 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 Patient counseled regarding signs and symptoms for which I believe and urgent re- evaluation would be necessary. Patient with good understanding of and agreement to plan and is comfortable going home at this time This document was made in part using voice recognition software. While efforts are made to proofread this document, sound alike and grammatical errors may occur. IMPRESSION: 1. Right lower lobe wedge-shaped consolidation and pleural effusion. While this may reflect rounded atelectasis or infection, underlying neoplasm is a differential, and follow-up to resolution advised. 2. Irregular bladder wall thickening associated with the right inguinal hernia. This could reflect a chronic infection or inflammation. Underlying neoplasm is also a consideration. Consider follow-up cystoscopy. 3. Chronic findings include cardiomegaly, and dense vascular calcification, small infrarenal abdominal aortic aneurysm 2.9 cm, degenerative disc disease and arthropathy. 4. Moderate to fecal debris in the rectum and sigmoid colon with right-sided diverticulosis without diverticulitis. Departure - Departure Disposition: 01 Home, Self Care Clinical Impression: Pleural effusion Abdominal pain Qualifiers: Abdominal location: generalized Qualified Code(s): R10.84 - Generalized abdominal pain Inguinal hernia Qualifiers: Obstruction and gangrene presence: without obstruction or gangrene Laterality: unilateral Recurrence: non-recurrent Qualified Code(s): K40.90 - Unilateral inguinal hernia, without obstruction or gangrene, not specified as recurrent Constipation Qualifiers: Constipation type: unspecified constipation type Qualified Code(s): K59.00 - Constipation, unspecified Condition: Good Instructions: ED Constipation Follow-Up: Brcye Reyes MD [Primary Care Provider] - Within 1 week Prescriptions: Magnesium Citrate 296 ml PO ONCE PRN #296 ml PRN Reason: Constipation Comments: You have several findings on CT scan that will need follow-up with your doctor. The first is a right lower lobe wedge-shaped consolidation and pleural effusion in your lung. It is recommended that you have a CT scan of your chest with contrast in 2 weeks to ensure resolution. You also have a right inguinal hernia that appears to contain bladder. You have an appointment with your construction rigger to be cleared for surgery. Please follow- up with your surgeon for further care. We have also prescribe you medication for the constipation. The magnesium citrate should help. Make sure you are drinking plenty of water at home. You can continue your MiraLAX as well. Your medication was sent to [facility] in [place]. IMPRESSION: 1. Right lower lobe wedge-shaped consolidation and pleural effusion. While this may reflect rounded atelectasis or infection, underlying neoplasm is a differential, and follow-up to resolution advised. 2. Irregular bladder wall thickening associated with the right inguinal hernia. This could reflect a chronic infection or inflammation. Underlying neoplasm is also a consideration. Consider follow-up cystoscopy. 3. Chronic findings include cardiomegaly, and dense vascular calcification, small infrarenal abdominal aortic aneurysm 2.9 cm, degenerative disc disease and arthropathy. 4. Moderate to fecal debris in the rectum and sigmoid colon with right-sided diverticulosis without diverticulitis. Discharge Date/Time: 10/14/21 20:12
[2021-10-14 20:12] VITALS: BP 152/79
== END 2021-10-14 20:12 | disposition home or self-care (01) ==
LOC: ED 16:21
DX: J18.1 Lobar pneumonia, unspecified organism (principal); J91.8 Pleural effusion in other conditions classified elsewhere; K40.90 Unilateral inguinal hernia, without obstruction or gangrene, not specified as recurrent; K59.00 Constipation, unspecified; I10 Essential (primary) hypertension; I48.91 Unspecified atrial fibrillation; Z95.1 Presence of aortocoronary bypass graft; Z95.0 Presence of cardiac pacemaker; Z79.01 Long term (current) use of anticoagulants; F17.200 Nicotine dependence, unspecified, uncomplicated
CPT/HCPCS: 36415; 80053; 81001; 81003; 83690; 85025; 87086; 99283; 99284

== ENCOUNTER 2021-11-06 10:27 | Outpatient (CLI) | payer MEDICARE, BC ==
--- NOTE | 2021-11-06 16:01 | CT Report ---
PROCEDURE: CHEST WO INDICATIONS: PULMONARY NODULE TECHNIQUE: Noncontrast 1mm axial images were acquired from the pulmonary apices to the posterior costophrenic an gles. Axial 5 mm soft tissue kernel reconstructions were performed as well as 8 mm axial MIP and cor onal and sagittal 5 mm reformations. For radiation dose reduction, the following was used: automate d exposure control, adjustment of mA and/or kV according to patient size. COMPARISON: Chest radiograph dated December 13, 2020 FINDINGS: Thyroid: Partially obscured by beam hardening artifact. Vasculature: Normal size and contour. Calcified atheromatous change of the aorta. Evidence of CABG is seen. Heart: Mild cardiomegaly without pericardial effusion. Coronary artery calcifications are seen. Mediastinum/mari: No pathologically enlarged lymph nodes by size criteria. Lung/pleura: Small right pleural effusion with adjacent atelectasis. Bilateral pleural calcifications are seen. Tracheobronchial tree: Hyperdense focus in the right lower lobe bronchus, measuring approximately 2.6 cm in length (9-32). Right lower lobe bronchiectasis. Upper abdomen: No acute abnormality. Bones: No significant abnormality. Multifocal degenerative change. Chest wall: No significant abnormality. Left chest wall cardiac device. IMPRESSION: 1.Small right pleural effusion with adjacent atelectasis. 2.Right lower lobe bronchiectasis with endobronchial lesion. Consider pulmonology consultation. 3.Bilateral pleural calcifications, which may reflect prior asbestos exposure. Reviewed by: Ricardo Gregory MD on 11/06/2021 3:59 PM PST Approved by: Ricardo Gregory MD on 11/06/2021 3:59 PM PST Station ID: [id number]
== END 2021-11-06 10:28 | disposition home or self-care (01) ==
LOC: DI 10:27
PROVIDERS: ATTEND Internal Medicine
DX: R91.1 Solitary pulmonary nodule (principal); J90 Pleural effusion, not elsewhere classified; J47.9 Bronchiectasis, uncomplicated; J98.4 Other disorders of lung; J98.11 Atelectasis

== ENCOUNTER 2022-01-05 10:16 | Outpatient (CLI) | payer MEDICARE, BC ==
--- NOTE | 2022-01-05 11:58 | XRAY Report ---
PROCEDURE: Chest 2 View X-Ray INDICATIONS: RESPIRATORY CRACKLES TECHNIQUE: 2 view(s) of the chest. COMPARISON: 12/13/2020 FINDINGS: Surgical changes and devices: Left chest wall cardiac pacer device and median sternotomy changes of C ABG, as seen on prior study. Lungs and pleura: No pleural effusions or pneumothorax. Lungs are clear. Mediastinum: Mediastinal contours are normal. Heart size is normal. Bones and chest wall: No suspicious bony abnormalities. Soft tissues appear unremarkable. IMPRESSION: No acute cardiopulmonary process demonstrated radiographically. Reviewed by: Carrington Meier MD on 01/05/2022 11:56 AM PDT Approved by: Carrington Meier MD on 01/05/2022 11:56 AM PDT Station ID: [id number]
== END 2022-01-05 10:17 | disposition home or self-care (01) ==
LOC: DI.N 10:16
PROVIDERS: ATTEND Family Medicine
DX: R09.89 Other specified symptoms and signs involving the circulatory and respiratory systems (principal)

== ENCOUNTER 2022-03-10 12:46 | Outpatient (CLI) | payer MEDICARE, BC ==
[2022-03-10 18:39] LABS: BASOPHILS # (AUTO) 0.1 10^3/uL (0.0-0.1); EOSINOPHILS % (AUTO) 15.5 %; HCT - HEMATOCRIT 29.4 % (42.0-52.0); HGB - HEMOGLOBIN 9.2 g/dL (14.0-18.0); LYMPHOCYTES % (AUTO) 15.7 %; MEAN CORPUSCULAR HEMOGLOBIN 31.1 pg (27.0-31.0); MEAN CORPUSCULAR HGB CONC 31.3 g/dL (32.0-36.0); MEAN CORPUSCULAR VOLUME 99.3 fL (80.0-94.0); MEAN PLATELET VOLUME 10.4 fL (7.4-11.4); MONOCYTES # (AUTO) 0.5 10^3/uL (0.0-1.0); MONOCYTES % (AUTO) 7.7 %; NEUTROPHILS # (AUTO) 3.7 10^3/uL (1.5-6.6); NEUTROPHILS % (AUTO) 59.8 %; PLT - PLATELET COUNT 176 10^3/uL (130-450); RED BLOOD COUNT 2.96 10^6/uL (4.70-6.10); RED CELL DISTRIBUTION WIDTH 15.8 % (12.0-15.0); WHITE BLOOD COUNT 6.2 x10^3/uL (4.8-10.8)
[2022-03-10 19:01] LABS: % IRON SATURATION 15 % (20-50); IRON 52 ug/dL (45-182); TOTAL IRON BINDING CAPACITY 340 ug/dL (250-450); TRANSFERRIN 243 mg/dL (180-329)
== END 2022-03-10 12:47 | disposition home or self-care (01) ==
LOC: LAB.N 12:46
PROVIDERS: ATTEND Nurse Practitioner Family
DX: D64.9 Anemia, unspecified (principal)
CPT/HCPCS: 36415; 82728; 83540; 84466; 85025

== ENCOUNTER 2022-03-19 14:34 | Outpatient (CLI) | payer MEDICARE, BC ==
[2022-03-19 14:46] LABS: HCT - HEMATOCRIT 30.6 % (42.0-52.0); MEAN CORPUSCULAR HEMOGLOBIN 31.6 pg (27.0-31.0); MEAN CORPUSCULAR HGB CONC 32.7 g/dL (32.0-36.0); MEAN CORPUSCULAR VOLUME 96.8 fL (80.0-94.0); MEAN PLATELET VOLUME 9.1 fL (7.4-11.4); RED BLOOD COUNT 3.16 10^6/uL (4.70-6.10); RED CELL DISTRIBUTION WIDTH 15.6 % (12.0-15.0); WHITE BLOOD COUNT 6.7 x10^3/uL (4.8-10.8)
[2022-03-19 15:05] LABS: CALCIUM 9.1 mg/dL (8.5-10.3); CREATININE 4.2 mg/dL (0.6-1.2); POTASSIUM 4.9 mmol/L (3.5-5.0)
[2022-03-19 15:31] LABS: FERRITIN 50.1 ng/mL (23.9-336.2)
[2022-03-19 15:34] LABS: CREATININE,URINE 183.3 mg/dL; PROTEIN/CREATININE RATIO,URINE 2.8 (<=0.2)
== END 2022-03-19 14:35 | disposition home or self-care (01) ==
LOC: LAB 14:34
PROVIDERS: ATTEND Internal Medicine Nephrology
DX: N05.9 Unspecified nephritic syndrome with unspecified morphologic changes (principal); D70.9 Neutropenia, unspecified; D63.1 Anemia in chronic kidney disease; R80.9 Proteinuria, unspecified; D64.9 Anemia, unspecified; D50.0 Iron deficiency anemia secondary to blood loss (chronic)
CPT/HCPCS: 36415; 80048; 82570; 82607; 82728; 84156; 85027

== ENCOUNTER 2022-03-30 11:36 | Outpatient (CLI) | payer MEDICARE, BC ==
[2022-03-30 18:06] LABS: BILIRUBIN,URINE NEGATIVE (NEGATIVE); GLUCOSE, URINE (UA) NEGATIVE (NEGATIVE); KETONES,URINE (UA) NEGATIVE (NEGATIVE); LEUKOCYTE ESTERASE, URINE NEGATIVE (NEGATIVE); NITRITE,URINE NEGATIVE (NEGATIVE); OCCULT BLOOD,URINE TRACE-INTA (NEGATIVE); PROTEIN,URINE >=300 mg/dL (NEGATIVE); UROBILINOGEN,URINE 0.2 (NORMAL) E.U./dL (NORMAL)
[2022-03-30 18:14] LABS: BASOPHILS # (AUTO) 0.1 10^3/uL (0.0-0.1); EOSINOPHILS % (AUTO) 17.1 %; HCT - HEMATOCRIT 32.3 % (42.0-52.0); HGB - HEMOGLOBIN 10.2 g/dL (14.0-18.0); LYMPHOCYTES # (AUTO) 1.1 10^3/uL (1.5-3.5); LYMPHOCYTES % (AUTO) 17.8 %; MEAN CORPUSCULAR HEMOGLOBIN 31.2 pg (27.0-31.0); MEAN CORPUSCULAR HGB CONC 31.6 g/dL (32.0-36.0); MEAN CORPUSCULAR VOLUME 98.8 fL (80.0-94.0); MEAN PLATELET VOLUME 10.2 fL (7.4-11.4); MONOCYTES # (AUTO) 0.4 10^3/uL (0.0-1.0); MONOCYTES % (AUTO) 7.2 %; NEUTROPHILS # (AUTO) 3.4 10^3/uL (1.5-6.6); NEUTROPHILS % (AUTO) 56.7 %; PLT - PLATELET COUNT 188 10^3/uL (130-450); RED BLOOD COUNT 3.27 10^6/uL (4.70-6.10); RED CELL DISTRIBUTION WIDTH 16.3 % (12.0-15.0)
[2022-03-30 18:23] LABS: SLIDE REVIEW? Indicated
[2022-03-30 18:29] LABS: CALCIUM 9.3 mg/dL (8.5-10.3); CREATININE 3.3 mg/dL (0.6-1.2); PHOSPHORUS 4.4 mg/dL (2.5-4.6); POTASSIUM 5.1 mmol/L (3.5-5.0)
[2022-03-30 18:38] LABS: BACTERIA,URINE None Seen /HPF (None Seen); CLARITY,URINE CLEAR (CLEAR); RBC,URINE None Seen /HPF (0-5); SQUAMOUS EPITHELIAL CELL,UR RARE Squamous (<= Few); WBC,URINE 0-3 /HPF (0-3)
[2022-03-30 18:40] LABS: THYROID STIMULATING HORMONE 9.04 uIU/mL (0.34-5.60)
[2022-03-30 18:46] LABS: FERRITIN 31.8 ng/mL (23.9-336.2)
[2022-03-30 18:57] LABS: ESTIMATED AVERAGE GLUCOSE 160 mg/dL (70-100); HEMOGLOBIN A1c% 7.2 % (4.27-6.07)
[2022-03-30 19:24] LABS: % IRON SATURATION 14 % (20-50); CHOL/HDL RATIO 3.1 (<5.0); CHOLESTEROL 204 mg/dL; HDL CHOLESTEROL 66 mg/dL; IRON 51 ug/dL (45-182); LDL CHOLESTEROL,CALCULATED 119 mg/dL; LDL/HDL RATIO 1.8 (<3.6); TOTAL IRON BINDING CAPACITY 357 ug/dL (250-450); TRANSFERRIN 255 mg/dL (180-329); TRIGLYCERIDES 95 mg/dL; URIC ACID 4.3 mg/dL (2.6-7.2); VLDL CHOLESTEROL 19 mg/dL
[2022-03-30 19:29] LABS: CREATININE,URINE < 13.0 mg/dL; MICROALBUM/CREATININE RATIO,UR 26415.4 ug/mg (<30.0); MICROALBUMIN,URINE 343.4 mg/dL (0-300.0)
[2022-03-30 20:10] LABS: DIFFERENTIAL COMMENT MANUAL=AUTO DIFF; PLATELET ESTIMATE, MANUAL NORMAL (130-450,000) (NORMAL); PLATELET MORPHOLOGY NORMAL APPEARANCE (NORMAL); RBC MORPHOLOGY (MULTIPLE) NORMAL APPEARANCE (NORMAL)
== END 2022-03-30 11:37 | disposition home or self-care (01) ==
LOC: LAB.N 11:36
PROVIDERS: ATTEND Nurse Practitioner Family
DX: D64.9 Anemia, unspecified (principal); N40.1 Benign prostatic hyperplasia with lower urinary tract symptoms; E78.5 Hyperlipidemia, unspecified; E11.22 Type 2 diabetes mellitus with diabetic chronic kidney disease; I50.32 Chronic diastolic (congestive) heart failure; Z79.4 Long term (current) use of insulin; E03.9 Hypothyroidism, unspecified; N05.9 Unspecified nephritic syndrome with unspecified morphologic changes; M10.00 Idiopathic gout, unspecified site; E83.30 Disorder of phosphorus metabolism, unspecified; N25.81 Secondary hyperparathyroidism of renal origin
CPT/HCPCS: 36415; 80048; 80061; 81001; 82043; 82570; 82728; 83036; 83540; 83721; 83880; 83970; 84100; 84439; 84443; 84466; 84550; 85025; 87086

== ENCOUNTER 2022-04-13 12:12 | Outpatient (CLI) | payer MEDICARE, BC ==
--- NOTE | 2022-04-13 16:12 | Ultrasound Report ---
PROCEDURE: Pelvic Limited or F/U INDICATIONS: URINARY BLADDER OUTLET SYNDROME TECHNIQUE: Real-time transabdominal scanning was performed of the pelvic organs, with image documentation. COMPARISON: CT of the abdomen and pelvis dated 10/14/2021, which demonstrated mild bladder wall thick ening and significant herniation of the bladder through a right inguinal hernia. FINDINGS: Prostate: 3.9 x 3.6 x 4.4 cm Bladder: The bladder is small volume currently. Given the lack of distention, no significant bladder wall thickening is appreciated. There are bilateral ureteral jets present. Prevoid volume is 70.4 mL . There is no post void residual. Other: No free pelvic fluid. IMPRESSION: No evidence of bladder outlet obstruction on this study. Reviewed by: Jorden Schmid MD on 04/13/2022 4:11 PM PDT Approved by: Jorden Schmid MD on 04/13/2022 4:11 PM PDT Station ID: [id number]
== END 2022-04-13 12:13 | disposition home or self-care (01) ==
LOC: DI 12:12
PROVIDERS: ATTEND Internal Medicine Nephrology
DX: N32.0 Bladder-neck obstruction (principal)

== ENCOUNTER 2022-07-02 08:19 | Outpatient (CLI) | payer MEDICARE, BC ==
[2022-07-02 12:14] LABS: HCT - HEMATOCRIT 30.4 % (42.0-52.0); HGB - HEMOGLOBIN 9.7 g/dL (14.0-18.0); MEAN CORPUSCULAR HEMOGLOBIN 31.8 pg (27.0-31.0); MEAN CORPUSCULAR HGB CONC 31.9 g/dL (32.0-36.0); MEAN CORPUSCULAR VOLUME 99.7 fL (80.0-94.0); MEAN PLATELET VOLUME 10.4 fL (7.4-11.4); RED BLOOD COUNT 3.05 10^6/uL (4.70-6.10); RED CELL DISTRIBUTION WIDTH 14.2 % (12.0-15.0); WHITE BLOOD COUNT 6.9 x10^3/uL (4.8-10.8)
[2022-07-02 12:28] LABS: ESTIMATED AVERAGE GLUCOSE 171 mg/dL (70-100); HEMOGLOBIN A1c% 7.6 % (4.27-6.07)
[2022-07-02 12:34] LABS: ALBUMIN 3.3 g/dL (3.2-5.5); CREATININE 3.9 mg/dL (0.6-1.2); MAGNESIUM 2.3 mg/dL (1.7-2.8); PHOSPHORUS 4.3 mg/dL (2.5-4.6); POTASSIUM 4.2 mmol/L (3.5-5.0)
[2022-07-02 12:43] LABS: CREATININE,URINE 89.3 mg/dL; MICROALBUMIN,URINE 145.2 mg/dL (0-300.0)
[2022-07-02 12:45] LABS: THYROID STIMULATING HORMONE 3.47 uIU/mL (0.34-5.60)
[2022-07-02 12:47] LABS: FREE T4 (FREE THYROXINE) 1.34 ng/dL (0.58-1.64)
[2022-07-02 12:48] LABS: FREE T3 2.03 pg/mL (2.5-3.9)
[2022-07-02 12:54] LABS: FERRITIN 738.1 ng/mL (23.9-336.2)
[2022-07-02 12:56] LABS: FOLATE 20.62 ng/mL (5.90 - >24.8)
== END 2022-07-02 08:20 | disposition home or self-care (01) ==
LOC: LAB.N 08:19
PROVIDERS: ATTEND Internal Medicine Nephrology
DX: I12.9 Hypertensive chronic kidney disease with stage 1 through stage 4 chronic kidney disease, or unspecified chronic kidney disease (principal); E11.22 Type 2 diabetes mellitus with diabetic chronic kidney disease; N18.4 Chronic kidney disease, stage 4 (severe); Z79.01 Long term (current) use of anticoagulants; E79.0 Hyperuricemia without signs of inflammatory arthritis and tophaceous disease; I48.0 Paroxysmal atrial fibrillation; E87.5 Hyperkalemia; E83.30 Disorder of phosphorus metabolism, unspecified; R80.9 Proteinuria, unspecified; D70.9 Neutropenia, unspecified; D63.1 Anemia in chronic kidney disease; D50.0 Iron deficiency anemia secondary to blood loss (chronic); D51.9 Vitamin B12 deficiency anemia, unspecified
CPT/HCPCS: 36415; 80048; 82040; 82043; 82570; 82607; 82728; 82746; 83036; 83540; 83735; 84100; 84439; 84443; 84466; 84481; 84550; 85027

== ENCOUNTER 2022-08-24 14:03 | Outpatient (CLI) | payer MEDICARE, BC ==
[2022-08-24 17:46] LABS: HCT - HEMATOCRIT 30.2 % (42.0-52.0); HGB - HEMOGLOBIN 9.1 g/dL (14.0-18.0); MEAN CORPUSCULAR HEMOGLOBIN 31.4 pg (27.0-31.0); MEAN CORPUSCULAR HGB CONC 30.1 g/dL (32.0-36.0); MEAN CORPUSCULAR VOLUME 104.1 fL (80.0-94.0); MEAN PLATELET VOLUME 10.5 fL (7.4-11.4); RED BLOOD COUNT 2.9 10^6/uL (4.70-6.10); RED CELL DISTRIBUTION WIDTH 14.6 % (12.0-15.0); WHITE BLOOD COUNT 8.8 x10^3/uL (4.8-10.8)
[2022-08-24 18:22] LABS: CALCIUM 8.3 mg/dL (8.5-10.3); CREATININE 3.7 mg/dL (0.6-1.2); POTASSIUM 4.1 mmol/L (3.5-5.0)
== END 2022-08-24 14:04 | disposition home or self-care (01) ==
LOC: LAB.N 14:03
PROVIDERS: ATTEND Internal Medicine Nephrology
DX: N05.9 Unspecified nephritic syndrome with unspecified morphologic changes (principal); D50.0 Iron deficiency anemia secondary to blood loss (chronic); D70.9 Neutropenia, unspecified; D63.1 Anemia in chronic kidney disease
CPT/HCPCS: 36415; 80048; 83540; 84466; 85027

== ENCOUNTER 2022-10-29 08:58 | Outpatient (CLI) | payer MEDICARE, BC ==
[2022-10-29 12:00] LABS: HCT - HEMATOCRIT 30.2 % (42.0-52.0); HGB - HEMOGLOBIN 9.1 g/dL (14.0-18.0); MEAN CORPUSCULAR HEMOGLOBIN 31.8 pg (27.0-31.0); MEAN CORPUSCULAR HGB CONC 30.1 g/dL (32.0-36.0); MEAN CORPUSCULAR VOLUME 105.6 fL (80.0-94.0); MEAN PLATELET VOLUME 10.5 fL (7.4-11.4); RED BLOOD COUNT 2.86 10^6/uL (4.70-6.10); WHITE BLOOD COUNT 6.1 x10^3/uL (4.8-10.8)
[2022-10-29 12:36] LABS: THYROID STIMULATING HORMONE 2.83 uIU/mL (0.34-5.60)
[2022-10-29 12:38] LABS: CALCIUM 9.2 mg/dL (8.5-10.3); CREATININE 3.6 mg/dL (0.6-1.2); FREE T3 1.78 pg/mL (2.5-3.9); FREE T4 (FREE THYROXINE) 0.97 ng/dL (0.58-1.64); POTASSIUM 4.5 mmol/L (3.5-5.0)
[2022-10-29 13:08] LABS: ESTIMATED AVERAGE GLUCOSE 160 mg/dL (70-100); HEMOGLOBIN A1c% 7.2 % (4.27-6.07)
[2022-10-29 14:15] LABS: CREATININE,URINE 110.5 mg/dL; MICROALBUM/CREATININE RATIO,UR 10074.2 ug/mg (<30.0); MICROALBUMIN,URINE 1113.2 mg/dL (0-300.0)
== END 2022-10-29 08:59 | disposition home or self-care (01) ==
LOC: LAB.N 08:58
PROVIDERS: ATTEND Internal Medicine Nephrology
DX: D70.9 Neutropenia, unspecified (principal); D63.1 Anemia in chronic kidney disease; E11.51 Type 2 diabetes mellitus with diabetic peripheral angiopathy without gangrene; N18.4 Chronic kidney disease, stage 4 (severe); Z79.4 Long term (current) use of insulin; Z79.01 Long term (current) use of anticoagulants; K21.00 Gastro-esophageal reflux disease with esophagitis, without bleeding; E79.0 Hyperuricemia without signs of inflammatory arthritis and tophaceous disease; I48.0 Paroxysmal atrial fibrillation; E11.22 Type 2 diabetes mellitus with diabetic chronic kidney disease; E03.9 Hypothyroidism, unspecified; I12.9 Hypertensive chronic kidney disease with stage 1 through stage 4 chronic kidney disease, or unspecified chronic kidney disease
CPT/HCPCS: 36415; 80048; 82043; 82570; 83036; 84439; 84443; 84481; 85027

== ENCOUNTER 2022-11-30 14:10 | Outpatient (CLI) | payer MEDICARE, BC ==
[2022-11-30 17:53] LABS: BASOPHILS % (AUTO) 0.4 %; EOSINOPHILS # (AUTO) 0.4 10^3/uL (0.0-0.7); EOSINOPHILS % (AUTO) 5.2 %; HCT - HEMATOCRIT 28.6 % (42.0-52.0); LYMPHOCYTES # (AUTO) 0.8 10^3/uL (1.5-3.5); MEAN CORPUSCULAR HEMOGLOBIN 31.9 pg (27.0-31.0); MEAN CORPUSCULAR HGB CONC 31.5 g/dL (32.0-36.0); MEAN CORPUSCULAR VOLUME 101.4 fL (80.0-94.0); MEAN PLATELET VOLUME 11.2 fL (7.4-11.4); MONOCYTES # (AUTO) 0.9 10^3/uL (0.0-1.0); MONOCYTES % (AUTO) 12.1 %; NEUTROPHILS # (AUTO) 5.5 10^3/uL (1.5-6.6); NEUTROPHILS % (AUTO) 71.9 %; PLT - PLATELET COUNT 116 10^3/uL (130-450); RED BLOOD COUNT 2.82 10^6/uL (4.70-6.10); WHITE BLOOD COUNT 7.6 x10^3/uL (4.8-10.8)
[2022-11-30 18:20] LABS: CALCIUM 8.3 mg/dL (8.5-10.3); CREATININE 4.4 mg/dL (0.6-1.2); POTASSIUM 4.7 mmol/L (3.5-5.0)
== END 2022-11-30 14:11 | disposition home or self-care (01) ==
LOC: LAB.N 14:10
PROVIDERS: ATTEND Internal Medicine Nephrology
DX: N05.9 Unspecified nephritic syndrome with unspecified morphologic changes (principal); D70.9 Neutropenia, unspecified; D63.1 Anemia in chronic kidney disease
CPT/HCPCS: 36415; 80048; 85025

== ENCOUNTER 2022-12-03 15:47 | Outpatient (CLI) | payer MEDICARE, BC ==
[2022-12-04 07:11] LABS: HBsAG SCREEN Negative (Negative); HEPATITIS B SURFACE AB QUANT <3.1 mIU/mL (Immunity>9.9)
== END 2022-12-03 15:48 | disposition home or self-care (01) ==
LOC: LAB 15:47
PROVIDERS: ATTEND Internal Medicine Nephrology
DX: B19.10 Unspecified viral hepatitis B without hepatic coma (principal)
CPT/HCPCS: 36415; 86317; 86704; 87340

== ENCOUNTER 2023-05-06 11:46 | Emergency (ER) | payer MEDICARE, BC ==
[2023-05-06 12:28] LABS: BASOPHILS # (AUTO) 0.1 10^3/uL (0.0-0.1); BASOPHILS % (AUTO) 1.3 %; EOSINOPHILS # (AUTO) 0.6 10^3/uL (0.0-0.7); EOSINOPHILS % (AUTO) 11.9 %; HCT - HEMATOCRIT 36.7 % (42.0-52.0); HGB - HEMOGLOBIN 11.6 g/dL (14.0-18.0); LYMPHOCYTES # (AUTO) 0.8 10^3/uL (1.5-3.5); LYMPHOCYTES % (AUTO) 14.4 %; MEAN CORPUSCULAR HEMOGLOBIN 30.6 pg (27.0-31.0); MEAN CORPUSCULAR HGB CONC 31.6 g/dL (32.0-36.0); MEAN CORPUSCULAR VOLUME 96.8 fL (80.0-94.0); MEAN PLATELET VOLUME 8.8 fL (7.4-11.4); MONOCYTES # (AUTO) 0.6 10^3/uL (0.0-1.0); MONOCYTES % (AUTO) 10.6 %; NEUTROPHILS # (AUTO) 3.3 10^3/uL (1.5-6.6); NEUTROPHILS % (AUTO) 61.6 %; PLT - PLATELET COUNT 128 10^3/uL (130-450); RED BLOOD COUNT 3.79 10^6/uL (4.70-6.10); RED CELL DISTRIBUTION WIDTH 15.8 % (12.0-15.0); WHITE BLOOD COUNT 5.4 x10^3/uL (4.8-10.8)
[2023-05-06 12:47] LABS: ALBUMIN 3.7 g/dL (3.2-5.5); ALBUMIN/GLOBULIN RATIO 1.4 (1.0-2.2); BILIRUBIN,TOTAL 0.8 mg/dL (0.2-1.0); CALCIUM 9.6 mg/dL (8.5-10.3); CREATININE 4.1 mg/dL (0.6-1.3); POTASSIUM 4.1 mmol/L (3.5-4.5); TOTAL PROTEIN 6.3 g/dL (6.4-8.9)
--- NOTE | 2023-05-06 12:48 | ED Physician Documentation ---
History of Present Illness - Stated complaint Stated Complaint: DIZZINESS,LIGHT HEADED - Chief complaint Chief Complaint: General - Additonal information Additional information: 77-year-old male who has a past medical history most significant for hypertension, diabetes, end-stage renal disease on 3 times weekly dialysis, previous [place] and CVA, presents to the emergency department for evaluation of more than 1 week feeling lightheaded especially with exertion and feeling as though he is going to faint and feeling dizzy, off balance. Patient states his symptoms have been worse over the last 2 days. States while driving yesterday he felt he was unsafe and might not be able to drive normally. He denies he is having any chest pain or shortness of air. He did have dialysis yesterday but is unsure how much was removed. Patient denies any headache, slurred speech, facial droop or focal weakness in the arms or legs. Patient states that he had a difficult time ambulating down the hallway to the ED room because he was feeling off balance and at the end of ambulation was feeling lightheaded. Review of Systems Constitutional: reports: Reviewed and negative Cardiac: reports: Other (Lightheaded). denies: Chest pain / pressure, Palpitations, Pedal edema, Calf pain Respiratory: denies: Dyspnea, Cough GI: reports: Reviewed and negative : reports: Reviewed and negative Neurologic: denies: Generalized weakness, Focal weakness, Numbness, Syncope, Seizure, Headache, Head injury, LOC PD PAST MEDICAL HISTORY - Past Medical History Cardiovascular: Hypertension, High cholesterol, [place], Atrial fibrillation Respiratory: COPD Endocrine/Autoimmune: None GI: GERD, Other : Benign prostate hypertrophy, Renal insuffiency HEENT: Other Psych: None Musculoskeletal: None - Past Surgical History Past Surgical History: Yes Cardiovascular: CABG, Pacemaker - Present Medications Home Medications: Ambulatory Orders Medication Instructions Recorded Confirmed Amiodarone [Pacerone] 200 mg PO QPM 06/18/14 06/25/17 Ammonium Lactate 12 misc TOP BID 06/18/14 06/25/17 Atorvastatin Calcium 40 mg PO QPM 06/18/14 06/25/17 Insulin Glargine [Lantus Solostar] 8 unit SUBQ QDBREAKFAST 07/11/14 06/25/17 Apixaban [Eliquis] 5 mg PO BID 09/06/15 06/25/17 Albuterol Sulf [Ventolin Hfa 1 - 2 puffs INH Q4HR PRN #1 inhaler 11/28/16 06/25/17 Inhaler] Furosemide [Lasix] 40 mg PO DAILY 12/14/20 Levothyroxine [Synthroid] 75 mcg PO DAILY 12/14/20 Tiotropium [place] [Spiriva 4 gm IH DAILY 30 Days #30 inhaler 12/14/20 Respimat] allopurinoL [Zyloprim] 100 mg PO BID 12/14/20 carvediloL [Coreg] 12.5 mg 12/14/20 Azithromycin [Zithromax] 0 mg PO DAILY #6 tablet 05/06/23 Cefpodoxime Proxetil [Vantin] 200 mg PO DAILY #7 tablet 05/06/23 - Allergies Allergies/Adverse Reactions: Allergies Allergy/AdvReac Type Severity Reaction Status Date / Time Penicillins Allergy Unknown Verified 05/06/23 11:56 - Social History Does the pt smoke?: Yes Smoking Status: Current every day smoker Does the pt drink ETOH?: No Does the pt have substance abuse?: No PD ED PE NORMAL - General General: Alert and oriented X 3, No acute distress, Well developed/nourished - HEENT HEENT: Atraumatic, Moist mucous membranes, Pharynx benign - Neck Neck: Supple, no meningeal sign - Cardiac Cardiac: No gallop, Strong equal pulses. No: RRR - Respiratory Respiratory: No respiratory distress, Clear bilaterally - Abdomen Abdomen: Normal bowel sounds, Soft - Back Back: No CVA TTP, No spinal TTP - Derm Derm: Normal color - Neuro Neuro: Alert and oriented X 3, wrist liner 2-12 intact, No motor deficit, No sensory deficit, Normal speech, Other (Paced rhythm on ECG monitor normal finger-nose.) Eye Opening: Spontaneous Motor: Obeys Commands Verbal: Oriented GCS Score: 15 Results - Vitals Vitals: Vital Signs - 24 hr 05/06/23 05/06/23 05/06/23 11:51 13:11 13:30 Temperature 36.5 C 36.3 C L Heart Rate 105 H 70 Heart Rate [ 72 Sitting] Heart Rate [ 75 Standing] Heart Rate [ 71 Supine] Respiratory 16 18 Rate Blood Pressure 91/57 L 145/77 H Blood Pressure 164/81 H [Sitting] Blood Pressure 145/77 H [Standing] Blood Pressure 176/77 H [Supine] O2 Saturation 96 99 Oxygen O2 Source Room air - EKG (time done) 1215 EKG releavant findings:: EKG personally interpreted by author of this note. Relevant findings are: Rate: Rate (enter#) (70) Rhythm: Paced (atrial paced) Compare to prior EKG: Unchanged from prior EKG Computer interpretation: Agree with computer (Paced rhythm. No other interpretation attempted but unchanged appearance from previous) - Labs Labs: Laboratory Tests 05/06/23 05/06/23 12:23 12:23 WBC 5.4 RBC 3.79 L Hgb 11.6 L Hct 36.7 L MCV 96.8 H MCH 30.6 MCHC 31.6 L RDW 15.8 H Plt Count 128 L MPV 8.8 Neut # (Auto) 3.3 Lymph # (Auto) 0.8 L [place] # (Auto) 0.6 Eos # (Auto) 0.6 Baso # (Auto) 0.1 Absolute Nucleated RBC 0.00 Nucleated RBC % 0.0 Sodium 137 Potassium 4.1 Chloride 101 Carbon Dioxide 31 Anion Gap 5.0 L BUN 39 H Creatinine 4.1 H Estimated GFR (MDRD) 14 L Glucose 239 H Calcium 9.6 Total Bilirubin 0.8 AST 20 ALT 27 Alkaline Phosphatase 104 Total Protein 6.3 L Albumin 3.7 Globulin 2.6 Albumin/Globulin Ratio 1.4 Lipase 61 - Rads (name of study) cxr Relevant Findings:: Final report received (Small right pleural effusion. Right basilar atelectasis or pneumonia) PD Medical Decision Making - ED course Complexity details: reviewed old records, reviewed results, re-evaluated patient, considered differential, d/w patient, d/w family ED course: 77-year-old male who has a past medical history most significant for hypertension, diabetes, end-stage renal disease on 3 times weekly dialysis presents to the emergency department for feeling lightheaded and dizzy for much of the last week. He denies any chest pain or shortness of air. He has had no syncopal episodes. Initially on presentation to the emergency department his triage vital signs revealed a heart rate of 105 and a soft blood pressure of 90/57. However when these vital signs were repeated at the bedside with orthostatics he was found to be hypertensive which is more to his baseline as well as having a paced atrial rhythm of 78. On evaluation he appears well. There were no focal neurodeficits noted. I did obtain CBC and electrolytes. Per my interpretation he does have mild anemia with a hemoglobin of 11.6. But in evaluation of previous labs this is essentially unchanged. No leukocytosis. His electrolytes reveal a BUN of 39 and a creatinine of 4.1. Again this is consistent with previous values and consistent with his history of dialysis. Lactic acid today was normal at 1.0. Blood cultures are pending. A chest x-ray as interpreted by both myself and the radiologist does confirm a right lower lobe infiltrate. Clinically the patient does not appear to have any neurodeficits or signs of stroke thus advanced imaging was deferred. His EKG showed a paced atrial rhythm. He is denying any chest pain. I suspect some of the lightheadedness an d dizziness may be attributed to recent dialysis or even mild dehydration. The patient was administered 500 mL of fluid. But given the findings of pneumonia on chest x-ray we will initiate treatment with azithromycin and cefpodoxime given his allergy profile. Without hypoxia clinically the patient does not need to be admitted to the hospital. I discussed the plan and findings with the patient and his and they are comfortable with discharge home. They will follow closely with the PCP and entry level administrative assistant. Advised to have repeat x-ray imaging in 4 to 6 weeks to ensure resolution of infiltrate. The usual emergent return precautions for failure of symptoms to resolve or worsen was discussed. Departure - Departure Disposition: 01 Home, Self Care Clinical Impression: ESRD on dialysis, Light-headed feeling CAP (community acquired pneumonia) Qualifiers: Laterality: right Lung location: lower lobe of lung Qualified Code(s): J18.9 - Pneumonia, unspecified organism Condition: Stable Instructions: ED Pneumonia Adult Prescriptions: Cefpodoxime Proxetil [Vantin] 200 mg PO DAILY #7 tablet Azithromycin [Zithromax] 0 mg PO DAILY #6 tablet Comments: You were seen today in the emergency department because for the last week you have been feeling lightheaded and dizzy. Today in the emergency department your labs did not show any worrisome abnormalities that would be unexpected given your history of dialysis. However the chest x-ray shows that you have developed a right lower lobe pneumonia. I suspected that the pneumonia as well as some dehydration may be contributing to your symptoms. Here in the emergency department we did give you a 500 mL IV fluid bolus As well as your first initial doses of antibiotic. Please fill the prescription for the antibiotics at [facility]. There does not need to be a dose adjustment of the azithromycin with dialysis. The second antibiotic, Vantin or cefpodoxime, should be taken once a day only. On dialysis days take it after dialysis. With the extra fluids today and the antibiotics I would anticipate that you are feeling better over the next 72 hours or so. Your chest xr should be repeated in 4-6 weeks to ensure that the pneumonia has fully resolved Please discuss this ED visit with your primary care doctor and/or entry level administrative assistant. I would recommend daily weights before and after dialysis as well as keeping a record of how much they are dialyzing in the future. This may be helpful in understanding whether or not you are dehydrated. If you find that your symptoms are not improving, you develop fevers, have chest pain, shortness of air or any fainting episodes then you do need to return immediately to the ER for a second evaluation. Forms: PCP List
--- NOTE | 2023-05-06 13:10 | XRAY Report ---
PROCEDURE: Chest 1 View X-Ray INDICATIONS: chest pain TECHNIQUE: One view of the chest was acquired. COMPARISON: 01/05/2022. FINDINGS: Surgical changes and devices: Right-sided tunneled double-lumen dialysis catheter has been placed in the interval since prior exam. CABG postsurgical changes and cardiac pacer are stable. Lungs and pleura: Small right pleural effusion. Increased desiccation in the right lung base which c ould represent atelectasis or pneumonia. Mediastinum: Mediastinal contours appear normal. Heart size is normal. Bones and chest wall: No suspicious bony lesions. Overlying soft tissues appear unremarkable. IMPRESSION: Small right pleural effusion. Right basilar atelectasis or pneumonia. Reviewed by: Hedy Gonsales MD, PhD on 05/06/2023 1:08 PM PDT Approved by: Hedy Gonsales MD, PhD on 05/06/2023 1:08 PM PDT Station ID: [id number]
[2023-05-06] MEDS ORDERED: SODIUM CHLORIDE 0.9% 500 ML IV STA (13:12)
[2023-05-06 13:35] VITALS: BP 145/77; O2SAT 99
[2023-05-06] MEDS ORDERED: CEFPODOXIME PROXETIL 100 MG TABLET PO STA (13:45)
[2023-05-06] MEDS ORDERED: AZITHROMYCIN 250 MG TABLET PO STA (13:45)
== END 2023-05-06 14:14 | disposition home or self-care (01) ==
LOC: ED 11:46
DX: J18.9 Pneumonia, unspecified organism (principal); E86.0 Dehydration; D64.9 Anemia, unspecified; I12.0 Hypertensive chronic kidney disease with stage 5 chronic kidney disease or end stage renal disease; E11.22 Type 2 diabetes mellitus with diabetic chronic kidney disease; N18.6 End stage renal disease; Z99.2 Dependence on renal dialysis; Z79.4 Long term (current) use of insulin; F17.200 Nicotine dependence, unspecified, uncomplicated; Z88.0 Allergy status to penicillin
CPT/HCPCS: 36415; 71045; 80053; 83605; 83690; 85025; 87040; 93005; 96360; 99284; A9270; 84484

== ENCOUNTER 2023-07-23 11:29 | Outpatient (CLI) | payer MEDICARE, BC ==
[2023-07-23 17:57] LABS: BASOPHILS # (AUTO) 0.1 10^3/uL (0.0-0.1); BASOPHILS % (AUTO) 1.4 %; EOSINOPHILS # (AUTO) 0.8 10^3/uL (0.0-0.7); EOSINOPHILS % (AUTO) 16.6 %; HCT - HEMATOCRIT 40.7 % (42.0-52.0); HGB - HEMOGLOBIN 12.8 g/dL (14.0-18.0); LYMPHOCYTES # (AUTO) 0.6 10^3/uL (1.5-3.5); LYMPHOCYTES % (AUTO) 12.6 %; MEAN CORPUSCULAR HEMOGLOBIN 31.8 pg (27.0-31.0); MEAN CORPUSCULAR HGB CONC 31.4 g/dL (32.0-36.0); MEAN PLATELET VOLUME 10.3 fL (7.4-11.4); MONOCYTES # (AUTO) 0.5 10^3/uL (0.0-1.0); MONOCYTES % (AUTO) 10.1 %; NEUTROPHILS # (AUTO) 2.9 10^3/uL (1.5-6.6); NEUTROPHILS % (AUTO) 59.1 %; PLT - PLATELET COUNT 127 10^3/uL (130-450); RED BLOOD COUNT 4.03 10^6/uL (4.70-6.10); RED CELL DISTRIBUTION WIDTH 14.6 % (12.0-15.0); WHITE BLOOD COUNT 4.9 x10^3/uL (4.8-10.8)
[2023-07-23 18:44] LABS: ALBUMIN 3.7 g/dL (3.2-5.5); ALBUMIN/GLOBULIN RATIO 1.5 (1.0-2.2); ALKALINE PHOSPHATASE 119 IU/L (42-121); ALT ALANINE AMINOTRANSFERASE 21 IU/L (10-60); AST ASPARTATE AMINOTRANSFERASE 18 IU/L (10-42); BILIRUBIN,TOTAL 0.5 mg/dL (0.2-1.0); BUN - BLOOD UREA NITROGEN 52 mg/dL (6-20); CALCIUM 9.2 mg/dL (8.5-10.3); CARBON DIOXIDE - CO2 23 mmol/L (21-32); CHLORIDE 107 mmol/L (101-111); CHOL/HDL RATIO 2.2 (<5.0); CHOLESTEROL 131 mg/dL; CREATININE 4.4 mg/dL (0.6-1.3); GFR - MDRD 13 (>89); GLUCOSE 267 mg/dL (74-104); HDL CHOLESTEROL 59 mg/dL; LDL CHOLESTEROL,CALCULATED 54 mg/dL; LDL/HDL RATIO 0.9 (<3.6); SODIUM 138 mmol/L (135-145); TOTAL PROTEIN 6.1 g/dL (6.4-8.9); TRIGLYCERIDES 91 mg/dL (48-352); VLDL CHOLESTEROL 18 mg/dL
[2023-07-23 18:54] LABS: THYROID STIMULATING HORMONE 1.51 uIU/mL (0.34-5.60)
== END 2023-07-23 11:30 | disposition home or self-care (01) ==
LOC: LAB.N 11:29
PROVIDERS: ATTEND Family Medicine
DX: I13.2 Hypertensive heart and chronic kidney disease with heart failure and with stage 5 chronic kidney disease, or end stage renal disease (principal); E11.22 Type 2 diabetes mellitus with diabetic chronic kidney disease; N18.6 End stage renal disease; I50.9 Heart failure, unspecified; Z79.4 Long term (current) use of insulin
CPT/HCPCS: 36415; 80053; 80061; 83721; 84439; 84443; 84481; 85025

== ENCOUNTER 2023-11-03 13:10 | Outpatient (CLI) | payer MEDICARE, BC ==
[2023-11-03 13:40] LABS: CALCIUM 9.5 mg/dL (8.5-10.3); CREATININE 4.3 mg/dL (0.6-1.3); POTASSIUM 4.8 mmol/L (3.5-4.5)
[2023-11-03 13:42] LABS: ESTIMATED AVERAGE GLUCOSE 140 mg/dL (70-100); HEMOGLOBIN A1c% 6.5 % (4.27-6.07)
[2023-11-03 13:58] LABS: THYROID STIMULATING HORMONE 0.74 uIU/mL (0.34-5.60)
== END 2023-11-03 13:11 | disposition home or self-care (01) ==
LOC: LAB 13:10
PROVIDERS: ATTEND Family Medicine
DX: I13.11 Hypertensive heart and chronic kidney disease without heart failure, with stage 5 chronic kidney disease, or end stage renal disease (principal); E11.22 Type 2 diabetes mellitus with diabetic chronic kidney disease; N18.6 End stage renal disease; E03.9 Hypothyroidism, unspecified; Z99.2 Dependence on renal dialysis; Z79.4 Long term (current) use of insulin
CPT/HCPCS: 36415; 80048; 83036; 84439; 84443; 84481

== ENCOUNTER 2024-01-08 19:36 | Outpatient (CLI) | payer MEDICARE, BC | END 2024-01-08 23:59 | disposition critical access hospital (66) | LOC: EMS 19:36 | DX: R11.2 Nausea with vomiting, unspecified (principal); Z99.2 Dependence on renal dialysis | CPT/HCPCS: A0425; A0429 ==

== ENCOUNTER 2024-01-08 19:56 | Emergency (ER) | payer MEDICARE, BC ==
--- NOTE | 2024-01-08 20:21 | ED Physician Documentation ---
History of Present Illness - Stated complaint Stated Complaint: NAUSEA - Chief complaint Chief Complaint: Abd Pain - History obtained from History obtained from: Patient, Family ( of patient) - Additonal information Additional information: HPI from EMS, patient, and patient's is in the ED at patient's bedside. Patient completed hemodialysis earlier this evening. Reportedly, he had a period of hypotension with systolic blood pressure readings in the 80s. However, this apparently corrected and he has had normal blood pressure readings for EMS as well as on arrival to ED. The was uncomfortable taking the patient home from the dialysis session although it sounds like she was more concerned about nausea that the patient was experiencing rather than the dip in the blood pressure. On arrival, patient complains of ongoing nausea but no vomiting. He has no other complaints. Review of Systems Constitutional: denies: Fever Cardiac: reports: Reviewed and negative Respiratory: reports: Reviewed and negative GI: reports: Abdominal Pain ((only noted on ROS: per , patient has been c/o upper abdominal pain x 6 weeks)), Nausea, Bloody / black stool (patient says he has noted dark black stools x 2-3 weeks). denies: Abdominal Swelling, Vomiting, Constipation, Diarrhea Neurologic: denies: Headache PD PAST MEDICAL HISTORY - Past Medical History Past Medical History: Yes Cardiovascular: Hypertension, High cholesterol, [place], Atrial fibrillation Respiratory: COPD Endocrine/Autoimmune: None GI: GERD, Other : Benign prostate hypertrophy, Renal insuffiency HEENT: Other Psych: None Musculoskeletal: None - Past Surgical History Past Surgical History: Yes Cardiovascular: CABG, Pacemaker - Present Medications Home Medications: Ambulatory Orders Medication Instructions Recorded Confirmed Amiodarone [Pacerone] 200 mg PO QPM 06/18/14 06/25/17 Ammonium Lactate 12 misc TOP BID 06/18/14 06/25/17 Atorvastatin Calcium 40 mg PO QPM 06/18/14 06/25/17 Insulin Glargine [Lantus Solostar] 8 unit SUBQ QDBREAKFAST 07/11/14 06/25/17 Apixaban [Eliquis] 5 mg PO BID 09/06/15 06/25/17 Albuterol Sulf [Ventolin Hfa 1 - 2 puffs INH Q4HR PRN #1 inhaler 11/28/16 06/25/17 Inhaler] Furosemide [Lasix] 40 mg PO DAILY 12/14/20 Levothyroxine [Synthroid] 75 mcg PO DAILY 12/14/20 Tiotropium [place] [Spiriva 4 gm IH DAILY 30 Days #30 inhaler 12/14/20 Respimat] allopurinoL [Zyloprim] 100 mg PO BID 12/14/20 carvediloL [Coreg] 12.5 mg 12/14/20 Azithromycin [Zithromax] 0 mg PO DAILY #6 tablet 05/06/23 Cefpodoxime Proxetil [Vantin] 200 mg PO DAILY #7 tablet 05/06/23 - Allergies Allergies/Adverse Reactions: Allergies Allergy/AdvReac Type Severity Reaction Status Date / Time Penicillins Allergy Unknown Verified 01/08/24 20:13 - Social History Does the pt smoke?: Yes Smoking Status: Current every day smoker Does the pt drink ETOH?: No Does the pt have substance abuse?: No - Immunizations Immunizations are current?: Yes - POLST Patient has POLST: No PD ED PE NORMAL - Vitals Vital signs reviewed: Yes - General General: Alert and oriented X 3 (answers are brief, at times seems unsure of his answers), No acute distress, Well developed/nourished - HEENT HEENT: Moist mucous membranes - Cardiac Cardiac: RRR - Respiratory Respiratory: No respiratory distress, Clear bilaterally - Abdomen Abdomen: Soft, Non tender, Non distended - Extremities Extremities: No edema PD ED PE EXPANDED - Rectal Rectal: Heme Occult Pos - QC +, Normal Tone, Viticulturist present. No: Mass, Hemorrhoid Results - Vitals Vitals: Vital Signs - 24 hr 01/08/24 01/08/24 01/08/24 19:55 21:21 23:28 Temperature 37.3 C 36.2 C L Heart Rate 75 70 70 Respiratory 24 16 17 Rate Blood Pressure 136/49 H 158/52 H 127/54 L O2 Saturation 97 100 96 01/09/24 01/09/24 00:17 02:30 Temperature Heart Rate 64 70 Respiratory 20 16 Rate Blood Pressure 133/48 H 125/63 O2 Saturation 98 97 Oxygen O2 Source Room air - Labs Labs: Microbiology 01/08/24 22:00 Occult Blood - Final Stool Laboratory Tests 01/08/24 01/08/24 01/08/24 20:44 20:44 22:07 WBC 9.0 RBC 1.80 L Hgb 5.7 L* 5.5 L* Hct 18.8 L* 18.2 L* MCV 104.4 H MCH 31.7 H MCHC 30.3 L RDW 15.8 H Plt Count 157 MPV 9.3 Neut # (Auto) 7.5 H Lymph # (Auto) 0.4 L [place] # (Auto) 0.9 Eos # (Auto) 0.1 Baso # (Auto) 0.1 Absolute Nucleated RBC 0.00 Nucleated RBC % 0.0 PT INR Sodium 136 Potassium 3.8 Chloride 97 L Carbon Dioxide 28 Anion Gap 11.0 BUN 45 H Creatinine 2.8 H Estimated GFR (MDRD) 22 L Glucose 186 H Calcium 9.0 Total Bilirubin AST ALT Alkaline Phosphatase Total Protein Albumin Globulin Albumin/Globulin Ratio Lipase Blood Type Blood Type Recheck Antibody Screen Crossmatch IS Only 01/08/24 01/09/24 01/09/24 22:07 01:45 01:45 WBC RBC Hgb Hct MCV MCH MCHC RDW Plt Count MPV Neut # (Auto) Lymph # (Auto) [place] # (Auto) Eos # (Auto) Baso # (Auto) Absolute Nucleated RBC Nucleated RBC % PT 12.6 INR 1.1 Sodium 136 Potassium 4.3 Chloride 99 L Carbon Dioxide 30 Anion Gap 7.0 BUN 55 H Creatinine 3.2 H Estimated GFR (MDRD) 19 L Glucose 171 H Calcium 8.7 Total Bilirubin 0.4 AST 13 ALT 15 Alkaline Phosphatase 79 Total Protein 5.2 L Albumin 3.0 L Globulin 2.2 Albumin/Globulin Ratio 1.4 Lipase 54 Blood Type Blood Type Recheck O POSITIVE Antibody Screen Crossmatch IS Only 01/09/24 01:45 WBC RBC Hgb Hct MCV MCH MCHC RDW Plt Count MPV Neut # (Auto) Lymph # (Auto) [place] # (Auto) Eos # (Auto) Baso # (Auto) Absolute Nucleated RBC Nucleated RBC % PT INR Sodium Potassium Chloride Carbon Dioxide Anion Gap BUN Creatinine Estimated GFR (MDRD) Glucose Calcium Total Bilirubin AST ALT Alkaline Phosphatase Total Protein Albumin Globulin Albumin/Globulin Ratio Lipase Blood Type O POSITIVE Blood Type Recheck Antibody Screen NEGATIVE Crossmatch IS Only See Detail PD Medical Decision Making - ED course Complexity details: reviewed results, re-evaluated patient, considered differential, d/w patient, d/w family ED course: Patient is given 4 mg TL Zofran. Basic blood work is ordered and significant anemia is found on CBC: Hemoglobin 5.5. A repeat hemoglobin/hematocrit is undertaken to verify this result and the repeat result is 5.3. On rectal exam, there is a small amount of dark black stool in the vault; this was sent to the lab and guaiac result is positive. I then discussed this case with the patient's veterinarian poultry (Dr. ARIAS Light). He says that the patient has been exhibiting down-trending H/H, but tonight's result is definitively lower than it had been (Dr. Light says most recent results were in the 7-8 range). The patient's vital signs remained stable during his stay at this ED. His hemoglobin/hematocrit is low enough to indicate transfusion. Case is complicated by the Eliquis which she takes on a daily basis, as well as that he is a hemodialysis patient. In querying [employer], I see some references to a snow removal/plowing out of [facility] (Dr. Loi Cardenas). The patient and his are not familiar with this name and do not seem to think that he has a snow removal/plowing. Given the complexity of this patient's case, he will need a higher level of care than [facility]. Given that the [facility] indicate that the patient either has, or is being set up with, a snow removal/plowing out of [facility], I contacted [facility]. A bed is available and I discussed this case with Dr. Vang who accepts the patient for transfer. Dr. Vang recommends 80 mg IV Protonix which is thus given in [facility] ED. We also discussed PRBC transfusion, the first unit of which is ordered and will hopefully be started prior to transfer to [facility]. Unfortunately, there was a significant delay in the type and crossmatch; the ordered blood was not available by the time of EMS arrival and, given that he has been in the emergency department for over 6 hours and has remained stable the during this prolonged period of observation, rather than delay his transfer,he is transferred without having been transfused in [facility] ED Departure - Departure Disposition: 02 Transfer Acute Care Hosp Clinical Impression: Anemia Qualifiers: Anemia type: other cause Other causes of anemia: other cause, not classified Qualified Code(s): D64.89 - Other specified anemias GI bleeding Qualifiers: GI bleed type/associated pathology: unspecified gastrointestinal hemorrhage type Qualified Code(s): K92.2 - Gastrointestinal hemorrhage, unspecified Condition: Stable Forms: PCP List Discharge Date/Time: 01/09/24 03:08
[2024-01-08] MEDS: ONDANSETRON ODT 4 MG TABLET TL STA (20:40)
[2024-01-08 20:51] LABS: BASOPHILS # (AUTO) 0.1 10^3/uL (0.0-0.1); BASOPHILS % (AUTO) 0.6 %; EOSINOPHILS # (AUTO) 0.1 10^3/uL (0.0-0.7); EOSINOPHILS % (AUTO) 0.8 %; LYMPHOCYTES # (AUTO) 0.4 10^3/uL (1.5-3.5); LYMPHOCYTES % (AUTO) 4.2 %; MEAN CORPUSCULAR HEMOGLOBIN 31.7 pg (27.0-31.0); MEAN CORPUSCULAR HGB CONC 30.3 g/dL (32.0-36.0); MEAN CORPUSCULAR VOLUME 104.4 fL (80.0-94.0); MEAN PLATELET VOLUME 9.3 fL (7.4-11.4); MONOCYTES # (AUTO) 0.9 10^3/uL (0.0-1.0); MONOCYTES % (AUTO) 10.4 %; NEUTROPHILS # (AUTO) 7.5 10^3/uL (1.5-6.6); NEUTROPHILS % (AUTO) 83.4 %; PLT - PLATELET COUNT 157 10^3/uL (130-450); RED CELL DISTRIBUTION WIDTH 15.8 % (12.0-15.0)
[2024-01-08 20:54] LABS: HCT - HEMATOCRIT 18.8 % (42.0-52.0); HGB - HEMOGLOBIN 5.7 g/dL (14.0-18.0)
[2024-01-08 21:04] LABS: CREATININE 2.8 mg/dL (0.6-1.3); POTASSIUM 3.8 mmol/L (3.5-4.5)
[2024-01-08 22:23] LABS: HGB - HEMOGLOBIN 5.5 g/dL (14.0-18.0)
[2024-01-08 22:24] LABS: HCT - HEMATOCRIT 18.2 % (42.0-52.0)
[2024-01-09] MEDS: PANTOPRAZOLE 40 MG VIAL IVP STA (01:43)
[2024-01-09 01:59] LABS: INR 1.1 (0.8-1.2); PT - PROTHROMBIN TIME 12.6 secs (9.9-12.6)
[2024-01-09 02:14] LABS: ALBUMIN/GLOBULIN RATIO 1.4 (1.0-2.2); BILIRUBIN,TOTAL 0.4 mg/dL (0.2-1.0); CALCIUM 8.7 mg/dL (8.5-10.3); CREATININE 3.2 mg/dL (0.6-1.3); POTASSIUM 4.3 mmol/L (3.5-4.5); TOTAL PROTEIN 5.2 g/dL (6.4-8.9)
[2024-01-09 02:31] VITALS: BP 125/63; O2SAT 97
== END 2024-01-09 03:08 | disposition short-term general hospital (02) ==
LOC: EDUNIT# → ED 19:56
DX: D64.89 Other specified anemias (principal); K92.2 Gastrointestinal hemorrhage, unspecified; I10 Essential (primary) hypertension; E78.00 Pure hypercholesterolemia, unspecified; I25.2 Old myocardial infarction; I48.91 Unspecified atrial fibrillation; J44.9 Chronic obstructive pulmonary disease, unspecified; N40.0 Benign prostatic hyperplasia without lower urinary tract symptoms; N28.9 Disorder of kidney and ureter, unspecified; Z79.4 Long term (current) use of insulin; Z79.899 Other long term (current) drug therapy; F17.200 Nicotine dependence, unspecified, uncomplicated
CPT/HCPCS: 36415; 80048; 80053; 82272; 83690; 85014; 85018; 85025; 85610; 86850; 86900; 86901; 86920; 96374; 99285; Q0162

== ENCOUNTER 2024-01-09 03:04 | Outpatient (CLI) | payer MEDICARE, BC | END 2024-01-09 23:59 | disposition short-term general hospital (02) | LOC: EMS 03:04 | PROVIDERS: ATTEND Emergency Medicine | DX: K92.1 Melena (principal); R11.0 Nausea; Z99.2 Dependence on renal dialysis | CPT/HCPCS: A0425; A0428 ==

== ENCOUNTER 2024-02-06 20:31 | Emergency (ER) | payer MEDICARE, BC ==
[2024-02-06 20:50] VITALS: BP 100/60; O2SAT 99
[2024-02-06 21:40] LABS: B. PARAPERTUSSIS- RESP PCR PAN NOT DETECTED; B. PERTUSSIS- RESP PCR PANEL NOT DETECTED; C. PNEUMONIAE- RESP PCR PANEL NOT DETECTED; CORONAVIRUS 229E-RESP PCR NOT DETECTED; CORONAVIRUS HKU1-RESP PCR NOT DETECTED; CORONAVIRUS NL63-RESP PCR NOT DETECTED; CORONAVIRUS OC43-RESP PCR NOT DETECTED; HUMAN METAPNEUMOVIRUS NOT DETECTED; INFLUENZA A- RESP PCR PANEL NOT DETECTED; INFLUENZA B - RESP PCR PANEL NOT DETECTED; M. PNEUMONIAE- RESP PCR PANEL NOT DETECTED; PARAINFLUENZA VIRUS 1 NOT DETECTED; PARAINFLUENZA VIRUS 2 NOT DETECTED; PARAINFLUENZA VIRUS 3 NOT DETECTED; PARAINFLUENZA VIRUS 4 NOT DETECTED; RHINOVIRUS/ENTEROVIRUS NOT DETECTED; RSV- RESP PCR PANEL NOT DETECTED; SARS-CoV-2 -RESP PCR PANEL NOT DETECTED
--- NOTE | 2024-02-06 22:15 | ED Physician Documentation ---
History of Present Illness - Stated complaint Stated Complaint: COVID - Chief complaint Chief Complaint: General - History obtained from History obtained from: Patient, Family - Additonal information Additional information: The patient comes to the emergency department with his for chief complaint of possible COVID exposure. The patient has had a mild cough, but no fevers. He states he always feels slightly short of breath. His was exposed to somebody with COVID and she is afraid that she may have it silently and have given it to the patient. The patient is scheduled to have a fistula placed for possible dialysis in a couple of days and the wants to make sure he will be fit for that procedure. The patient has had a slight increase in swelling in his legs but is otherwise without complaints beyond what is listed. PD PAST MEDICAL HISTORY - Past Medical History Past Medical History: Yes Cardiovascular: Hypertension, High cholesterol, [place], Atrial fibrillation Respiratory: COPD Endocrine/Autoimmune: None GI: GERD, Other : Benign prostate hypertrophy, Renal insuffiency HEENT: Other Psych: None Musculoskeletal: None - Past Surgical History Past Surgical History: Yes Cardiovascular: CABG, Pacemaker - Present Medications Home Medications: Ambulatory Orders Medication Instructions Recorded Confirmed Amiodarone [Pacerone] 200 mg PO QPM 06/18/14 06/25/17 Ammonium Lactate 12 misc TOP BID 06/18/14 06/25/17 Atorvastatin Calcium 40 mg PO QPM 06/18/14 06/25/17 Insulin Glargine [Lantus Solostar] 8 unit SUBQ QDBREAKFAST 07/11/14 06/25/17 Apixaban [Eliquis] 5 mg PO BID 09/06/15 06/25/17 Albuterol Sulf [Ventolin Hfa 1 - 2 puffs INH Q4HR PRN #1 inhaler 11/28/16 06/25/17 Inhaler] Furosemide [Lasix] 40 mg PO DAILY 12/14/20 Levothyroxine [Synthroid] 75 mcg PO DAILY 12/14/20 Tiotropium [place] [Spiriva 4 gm IH DAILY 30 Days #30 inhaler 12/14/20 Respimat] allopurinoL [Zyloprim] 100 mg PO BID 12/14/20 carvediloL [Coreg] 12.5 mg 12/14/20 Azithromycin [Zithromax] 0 mg PO DAILY #6 tablet 05/06/23 Cefpodoxime Proxetil [Vantin] 200 mg PO DAILY #7 tablet 05/06/23 - Allergies Allergies/Adverse Reactions: Allergies Allergy/AdvReac Type Severity Reaction Status Date / Time Penicillins Allergy Unknown Verified 02/06/24 20:35 - Social History Does the pt smoke?: Yes Smoking Status: Current every day smoker Does the pt drink ETOH?: No Does the pt have substance abuse?: No - Immunizations Immunizations are current?: Yes - POLST Patient has POLST: No PD ED PE NORMAL - Vitals Vital signs reviewed: Yes - General General: No acute distress, Well developed/nourished, Other (Alert and grossly oriented.) - HEENT HEENT: Atraumatic, EOMI, Moist mucous membranes - Neck Neck: Supple, no meningeal sign - Cardiac Cardiac: RRR, No murmur, Strong equal pulses - Respiratory Respiratory: No respiratory distress, Clear bilaterally - Abdomen Abdomen: Soft, Non tender, Non distended - Derm Derm: Normal color, Warm and dry, No rash - Extremities Extremities: No deformity, Other (Moderate edema in bilateral lower extremities and right hand.) - Neuro Neuro: Other (Grossly intact) - Psych Psych: Normal mood, Normal affect Results - Vitals Vitals: Oxygen O2 Source Room air - Labs Labs: Laboratory Tests 02/06/24 20:38 Nasal Adenovirus (PCR) NOT DETECTED Nasal B. parapertussis DNA (PCR) NOT DETECTED Nasal Coronavir 229E PCR NOT DETECTED Nasal Coronavir HKU1 PCR NOT DETECTED Nasal Coronavir NL63 PCR NOT DETECTED Nasal Coronavir OC43 PCR NOT DETECTED Nasal Enterovir/Rhinovir PCR NOT DETECTED Nasal Influenza B PCR NOT DETECTED Nasal Influenza A PCR NOT DETECTED Nasal Parainfluen 1 PCR NOT DETECTED Nasal Parainfluen 2 PCR NOT DETECTED Nasal Parainfluen 3 PCR NOT DETECTED Nasal Parainfluen 4 PCR NOT DETECTED Nasal RSV (PCR) NOT DETECTED Nasal B.pertussis DNA PCR NOT DETECTED Nasal C.pneumoniae (PCR) NOT DETECTED [place] Human Metapneumo PCR NOT DETECTED Nasal M.pneumoniae (PCR) NOT DETECTED Nasal SARS-CoV-2 (PCR) NOT DETECTED PD Medical Decision Making - ED course Complexity details: reviewed old records, reviewed results, re-evaluated patient, considered differential, d/w patient, d/w family ED course: Nursing staff had obtained a COVID test from triage and this was negative. I discussed with the patient and his that the patient's vitals are completely normal and his exam reveals no abnormalities with regard to his heart and lungs. The patient is not complaining of shortness of breath and does have chronic swelling. He has been closely followed by nephrology and at this point, I will be up to nephrology on to decide whether they are still going to go forward with the procedure. However, based on the patient's examination, vital signs, and description of symptoms, I do not see why he should not be able to get his procedure, barring worsening of his clinical condition. I discussed this with the patient's . I do not feel that any further acute workup is indicated at this time. We have discussed the usual indications for return. Departure - Departure Disposition: 01 Home, Self Care Clinical Impression: Exposure to COVID-19 virus Condition: Stable Instructions: ED Insufficiency Renal Comments: There was concern that you were possibly exposed to COVID, but your COVID test is negative. Your lungs are clear and your vital signs are completely normal. You do have a lot of underlying medical issues which are expected to impact your general sense of comfort and wellbeing from time to time. At this point in time, it is up to your procedural team to determine whether you are fit to undergo the procedure you are planned to have this coming . For now, please continue to take your medications at home as usual and get plenty of rest. If you begin feeling a lot worse, please return to the emergency department. Forms: PCP List Discharge Date/Time: 02/06/24 22:39
== END 2024-02-06 22:39 | disposition home or self-care (01) ==
LOC: ED 20:31
DX: Z20.822 Contact with and (suspected) exposure to COVID-19 (principal); I10 Essential (primary) hypertension; J44.9 Chronic obstructive pulmonary disease, unspecified; F17.200 Nicotine dependence, unspecified, uncomplicated
CPT/HCPCS: 87633; 99283

== ENCOUNTER 2024-03-28 14:24 | Emergency (ER) | payer MEDICARE, BC ==
[2024-03-28 14:46] VITALS: O2SAT 94
[2024-03-28] MEDS: IPRATROPIUM/ALBUTEROL 3 ML NEB INH STA (15:20)
--- NOTE | 2024-03-28 15:26 | ED Physician Documentation ---
PD HPI URI - Stated complaint Stated Complaint: SOA,WHEEZING,COUGH,N/V - Chief complaint Chief Complaint: Resp - History obtained from History obtained from: Patient, Family - History of Present Illness Timing - onset: How many months ago (1) Timing duration: Months (1) Timing details: Gradual onset Pain level max: 0 Pain level now: 0 Associated symptoms: Nasal congestion, Rhinorrhea, Dry cough. No: Fever, Chills, Hemoptysis, Chest pain Contributing factors: Sick contact Improves by: Rest Worsened by: Activity - Additional information Additional information: 78-year-old male states that he has had wheezing and cough for the past 1 month. He is a dialysis patient and was supposed to go to dialysis this morning but decided to come to the ER instead. He was seen at [facility] last night and diagnosed with human metapneumovirus. He does not use oxygen at home. He does have albuterol at home but has not used it. No fevers. No chills. No nausea or vomiting. Review of Systems Constitutional: denies: Fever, Chills Throat: denies: Sore throat Cardiac: denies: Chest pain / pressure Respiratory: reports: Cough, Wheezing : denies: Dysuria Skin: denies: Rash Musculoskeletal: denies: Neck pain, Back pain Neurologic: denies: Headache PD PAST MEDICAL HISTORY - Past Medical History Cardiovascular: Hypertension, High cholesterol, [place], Atrial fibrillation Respiratory: COPD Endocrine/Autoimmune: None GI: GERD, Other : Benign prostate hypertrophy, Renal insuffiency HEENT: Other Psych: None Musculoskeletal: None - Past Surgical History Past Surgical History: Yes Cardiovascular: CABG, Pacemaker - Present Medications Home Medications: Ambulatory Orders Medication Instructions Recorded Confirmed Amiodarone [Pacerone] 200 mg PO QPM 06/18/14 06/25/17 Ammonium Lactate 12 misc TOP BID 06/18/14 06/25/17 Atorvastatin Calcium 40 mg PO QPM 06/18/14 06/25/17 Insulin Glargine [Lantus Solostar] 8 unit SUBQ QDBREAKFAST 07/11/14 06/25/17 Apixaban [Eliquis] 5 mg PO BID 09/06/15 06/25/17 Albuterol Sulf [Ventolin Hfa 1 - 2 puffs INH Q4HR PRN #1 inhaler 11/28/16 06/25/17 Inhaler] Furosemide [Lasix] 40 mg PO DAILY 12/14/20 Levothyroxine [Synthroid] 75 mcg PO DAILY 12/14/20 Tiotropium [place] [Spiriva 4 gm IH DAILY 30 Days #30 inhaler 12/14/20 Respimat] allopurinoL [Zyloprim] 100 mg PO BID 12/14/20 carvediloL [Coreg] 12.5 mg 12/14/20 Azithromycin [Zithromax] 0 mg PO DAILY #6 tablet 05/06/23 Cefpodoxime Proxetil [Vantin] 200 mg PO DAILY #7 tablet 05/06/23 Albuterol Sulf [Ventolin Hfa 1 - 2 puffs INH Q4HR PRN #1 each 03/28/24 Inhaler] predniSONE [Deltasone] 40 mg PO DAILY #10 tablet 03/28/24 - Allergies Allergies/Adverse Reactions: Allergies Allergy/AdvReac Type Severity Reaction Status Date / Time Penicillins Allergy Unknown Verified 03/28/24 14:34 - Social History Does the pt smoke?: Yes Smoking Status: Former smoker Does the pt drink ETOH?: No Does the pt have substance abuse?: No - Immunizations Immunizations are current?: Yes - POLST Patient has POLST: No PD ED PE NORMAL - Vitals Vital signs reviewed: Yes - General General: Alert and oriented X 3, No acute distress, Well developed/nourished - HEENT HEENT: Moist mucous membranes, Pharynx benign - Neck Neck: Supple, no meningeal sign - Cardiac Cardiac: RRR - Respiratory Respiratory: No respiratory distress, Other (Mild wheezing bilaterally, diffuse crackles) - Abdomen Abdomen: Soft, Non tender, Non distended - Derm Derm: Warm and dry - Extremities Extremities: No edema - Neuro Neuro: Alert and oriented X 3 Results - Vitals Vitals: Vital Signs - 24 hr 03/28/24 03/28/24 03/28/24 14:28 14:44 14:45 Temperature 37.1 C Heart Rate 98 Respiratory 24 Rate Blood Pressure 109/50 L O2 Saturation 93 88 L 94 If not protocol 2 : Oxygen Flow, liters/minute 03/28/24 03/28/24 15:23 16:29 Temperature 37.2 C Heart Rate 106 H 90 Respiratory 26 H 22 Rate Blood Pressure 122/64 O2 Saturation 94 If not protocol 1 : Oxygen Flow, liters/minute Oxygen O2 Source Room air - Labs Labs: Laboratory Tests 03/28/24 03/28/24 03/28/24 15:23 15:23 15:23 WBC 4.8 RBC 3.68 L Hgb 11.5 L Hct 37.8 L MCV 102.7 H MCH 31.3 H MCHC 30.4 L RDW 18.5 H Plt Count 66 L MPV 10.9 Neut # (Auto) 3.5 Lymph # (Auto) 0.6 L [place] # (Auto) 0.6 Eos # (Auto) 0.0 Baso # (Auto) 0.0 Absolute Nucleated RBC 0.00 Nucleated RBC % 0.0 Sodium 135 Potassium 4.5 Chloride 98 L Carbon Dioxide 26 Anion Gap 11.0 BUN 56 H Creatinine 8.5 H* Estimated GFR (MDRD) 6 L Glucose 190 H Calcium 9.7 Total Bilirubin 0.8 AST 20 ALT 19 Alkaline Phosphatase 88 B-Natriuretic Peptide 4347 H Total Protein 6.3 L Albumin 3.6 Globulin 2.7 Albumin/Globulin Ratio 1.3 Lipase 24 - Rads (name of study) cxr Relevant Findings:: Final report received, See rad report PD Medical Decision Making - ED course Complexity details: reviewed results, re-evaluated patient, considered differential, d/w patient ED course: 78-year-old male with human metapneumovirus on respiratory PCR last night at another hospital. Normal white blood cell count here. His chemistry is remarkable for an elevated creatinine consistent with his dialysis. His BNP is significantly elevated above normal consistent with fluid retention. His chest x-ray is also consistent with pulmonary edema. He was given prednisone and a breathing treatment here. He is not hypoxic or requiring supplemental oxygen. He does feel better. Instructions were given regarding albuterol and spacer teaching performed. I spoke with his dialysis center. They are able to still get him in for dialysis today to take the excess fluid off to help with the pulmonary edema. There is no dialysis available at this hospital. He is not hypoxic. Well-appearing, nontoxic. Afebrile. No indication for antibiotics. Will place on steroids for home as well. Patient and family counseled regarding signs and symptoms for which I believe and urgent re-evaluation would be necessary. Patient with good understanding of and agreement to plan and is comfortable going home at this time This document was made in part using voice recognition software. While efforts are made to proofread this document, sound alike and grammatical errors may occur. Departure - Departure Disposition: 01 Home, Self Care Clinical Impression: COPD exacerbation Pulmonary edema Qualifiers: Chronicity: acute Qualified Code(s): J81.0 - Acute pulmonary edema Condition: Good Instructions: Edema Pulmonary, ED Viral Syndrome Follow-Up: Bryce Reyes MD [Primary Care Provider] - Prescriptions: Albuterol Sulf [Ventolin Hfa Inhaler] 1 - 2 puffs INH Q4HR PRN #1 each PRN Reason: Shortness Of Air/Wheezing predniSONE [Deltasone] 40 mg PO DAILY #10 tablet Comments: [facility] [place]. As we discussed it is important that you go directly to dialysis today as you have a significant amount of excess fluid on your lungs. This will help you breathe. Please follow-up with your doctor for further care and return if you worsen. Forms: PCP List Discharge Date/Time: 03/28/24 16:38
[2024-03-28 15:27] LABS: BASOPHILS % (AUTO) 0.6 %; EOSINOPHILS % (AUTO) 0.8 %; HCT - HEMATOCRIT 37.8 % (42.0-52.0); HGB - HEMOGLOBIN 11.5 g/dL (14.0-18.0); LYMPHOCYTES # (AUTO) 0.6 10^3/uL (1.5-3.5); LYMPHOCYTES % (AUTO) 12.8 %; MEAN CORPUSCULAR HEMOGLOBIN 31.3 pg (27.0-31.0); MEAN CORPUSCULAR HGB CONC 30.4 g/dL (32.0-36.0); MEAN CORPUSCULAR VOLUME 102.7 fL (80.0-94.0); MEAN PLATELET VOLUME 10.9 fL (7.4-11.4); MONOCYTES # (AUTO) 0.6 10^3/uL (0.0-1.0); MONOCYTES % (AUTO) 12.4 %; NEUTROPHILS # (AUTO) 3.5 10^3/uL (1.5-6.6); PLT - PLATELET COUNT 66 10^3/uL (130-450); RED BLOOD COUNT 3.68 10^6/uL (4.70-6.10); RED CELL DISTRIBUTION WIDTH 18.5 % (12.0-15.0); WHITE BLOOD COUNT 4.8 x10^3/uL (4.8-10.8)
--- NOTE | 2024-03-28 15:36 | XRAY Report ---
PROCEDURE: Chest 1V INDICATIONS: dyspnea TECHNIQUE: One view of the chest was acquired. COMPARISON: Chest x-ray 04/26/2023 FINDINGS: Surgical changes and devices: Pacemaker and sternal wires. Lungs and pleura: Patchy bilateral opacities with mild effusions, right greater than left. Mild incr eased pulmonary vascularity. Mediastinum: Mediastinal contours appear normal. Heart size is enlarged. Bones and chest wall: No suspicious bony lesions. Overlying soft tissues appear unremarkable. IMPRESSION: Cardiomegaly with increased vascular effusions consistent with edema. Focal patchy opacities are susp ected to represent focal edema. However, pneumonia or atelectasis cannot be excluded. Reviewed by: Shelbie Moon MD on 03/28/2024 3:35 PM PDT Approved by: Shelbie Moon MD on 03/28/2024 3:35 PM PDT Station ID: [id number]
[2024-03-28] MEDS: predniSONE 20 MG TABLET PO STA (15:41)
[2024-03-28 15:48] LABS: ALBUMIN 3.6 g/dL (3.2-5.5); ALBUMIN/GLOBULIN RATIO 1.3 (1.0-2.2); BILIRUBIN,TOTAL 0.8 mg/dL (0.2-1.0); CALCIUM 9.7 mg/dL (8.5-10.3); CREATININE 8.5 mg/dL (0.6-1.3); POTASSIUM 4.5 mmol/L (3.5-4.5); TOTAL PROTEIN 6.3 g/dL (6.4-8.9)
[2024-03-28 16:31] VITALS: BP 122/64
== END 2024-03-28 16:38 | disposition home or self-care (01) ==
LOC: ED 14:24
DX: J44.1 Chronic obstructive pulmonary disease with (acute) exacerbation (principal); B97.81 Human metapneumovirus as the cause of diseases classified elsewhere; J81.0 Acute pulmonary edema; N28.9 Disorder of kidney and ureter, unspecified; Z99.2 Dependence on renal dialysis; R05.9 Cough, unspecified; I10 Essential (primary) hypertension; E78.00 Pure hypercholesterolemia, unspecified; I25.2 Old myocardial infarction; I48.91 Unspecified atrial fibrillation; N40.0 Benign prostatic hyperplasia without lower urinary tract symptoms; Z95.1 Presence of aortocoronary bypass graft; Z95.0 Presence of cardiac pacemaker; Z79.01 Long term (current) use of anticoagulants; Z79.899 Other long term (current) drug therapy
CPT/HCPCS: 36415; 71045; 80053; 83690; 83880; 85025; 94640; 94664; 99284; J7512

== ENCOUNTER 2024-04-01 23:36 | Emergency (ER) | payer MEDICARE, BC ==
--- NOTE | 2024-04-02 02:05 | ED Physician Documentation ---
PD HPI DYSPNEA - Stated complaint Stated Complaint: SOA - Chief complaint Chief Complaint: Resp - History obtained from History obtained from: Patient - Additional information Additional information: HD patient c/o dyspnea, worse with exertion, since this morning. Last HD was yesterday. Denies fever, cough, chest pain. T+R 03/28 for dyspnea, rx 5-day course of prednisone (has one day left of 40mg QD to be taken tomorrow to complete the course of prednisone). PMHx also includes COPD. Was T+R from ED 03/27 for dyspnea, tested positive for human metapneumovirus. Review of Systems Constitutional: denies: Fever, Chills, Sweats Cardiac: denies: Chest pain / pressure, Palpitations Respiratory: reports: Dyspnea, Wheezing. denies: Cough GI: denies: Abdominal Pain, Nausea, Vomiting Musculoskeletal: denies: Extremity swelling Neurologic: denies: Generalized weakness, Headache PD PAST MEDICAL HISTORY - Past Medical History Past Medical History: Yes Cardiovascular: Hypertension, High cholesterol, [place], Atrial fibrillation Respiratory: COPD Endocrine/Autoimmune: None GI: GERD, Other : Benign prostate hypertrophy, Renal insuffiency HEENT: Other Psych: None Musculoskeletal: None - Past Surgical History Past Surgical History: Yes Cardiovascular: CABG, Pacemaker - Present Medications Home Medications: Ambulatory Orders Medication Instructions Recorded Confirmed Amiodarone [Pacerone] 200 mg PO QPM 06/18/14 04/02/24 Ammonium Lactate 12 misc TOP BID 06/18/14 04/02/24 Atorvastatin Calcium 40 mg PO QPM 06/18/14 04/02/24 Insulin Glargine [Lantus Solostar] 8 unit SUBQ QDBREAKFAST 07/11/14 04/02/24 Apixaban [Eliquis] 5 mg PO BID 09/06/15 04/02/24 Albuterol Sulf [Ventolin Hfa 1 - 2 puffs INH Q4HR PRN #1 inhaler 11/28/16 04/02/24 Inhaler] Furosemide [Lasix] 40 mg PO DAILY 12/14/20 04/02/24 Levothyroxine [Synthroid] 75 mcg PO DAILY 12/14/20 04/02/24 Tiotropium [place] [Spiriva 4 gm IH DAILY 30 Days #30 inhaler 12/14/20 04/02/24 Respimat] allopurinoL [Zyloprim] 100 mg PO BID 12/14/20 04/02/24 carvediloL [Coreg] 12.5 mg PO DAILY 12/14/20 04/02/24 predniSONE [Deltasone] 40 mg PO DAILY #10 tablet 03/28/24 04/02/24 Albuterol 2.5 mg INH Q4H PRN #30 ml 04/02/24 Azithromycin [Zithromax] 250 mg PO DAILY #4 tablet 04/02/24 predniSONE [Deltasone] 10 mg PO [id number] #42 tab 04/02/24 - Allergies Allergies/Adverse Reactions: Allergies Allergy/AdvReac Type Severity Reaction Status Date / Time Penicillins Allergy Unknown Verified 04/01/24 23:39 - Social History Does the pt smoke?: Yes Smoking Status: Current every day smoker Does the pt drink ETOH?: No Does the pt have substance abuse?: No - Immunizations Immunizations are current?: Yes - POLST Patient has POLST: No PD ED PE NORMAL - Vitals Vital signs reviewed: Yes - General General: Alert and oriented X 3, No acute distress, Well developed/nourished - HEENT HEENT: Moist mucous membranes - Neck Neck: Supple, no meningeal sign - Cardiac Cardiac: RRR (frequent extra beats) - Respiratory Respiratory: No respiratory distress - Abdomen Abdomen: Soft, Non tender - Derm Derm: Normal color, Warm and dry - Extremities Extremities: No edema - Neuro Neuro: Alert and oriented X 3 PD ED PE EXPANDED - Respiratory Respiratory: Wheezing, Rhonchi, Decreased breath sounds Results - Vitals Vitals: Oxygen O2 Source Room air - Labs Labs: Laboratory Tests 04/02/24 04/02/24 04/02/24 02:36 02:40 02:40 WBC 7.5 RBC 4.36 L Hgb 13.5 L Hct 44.9 MCV 103.0 H MCH 31.0 MCHC 30.1 L RDW 18.5 H Plt Count 100 L MPV 10.9 Neut # (Auto) 7.1 H Lymph # (Auto) 0.3 L [place] # (Auto) 0.1 Eos # (Auto) 0.0 Baso # (Auto) 0.0 Absolute Nucleated RBC 0.04 Nucleated RBC % 0.5 Sodium 133 L Potassium 4.3 Chloride 94 L Carbon Dioxide 28 Anion Gap 11.0 BUN 30 H Creatinine 5.0 H Estimated GFR (MDRD) 11 L Glucose 250 H Calcium 9.6 Total Bilirubin 0.8 AST 18 ALT 25 Alkaline Phosphatase 91 B-Natriuretic Peptide Total Protein 6.6 Albumin 3.6 Globulin 3.0 Albumin/Globulin Ratio 1.2 Lipase 57 Nasal Adenovirus (PCR) NOT DETECTED Nasal B. parapertussis DNA (PCR) NOT DETECTED Nasal Coronavir 229E PCR NOT DETECTED Nasal Coronavir HKU1 PCR NOT DETECTED Nasal Coronavir NL63 PCR NOT DETECTED Nasal Coronavir OC43 PCR NOT DETECTED Nasal Enterovir/Rhinovir PCR NOT DETECTED Nasal Influenza B PCR NOT DETECTED Nasal Influenza A PCR NOT DETECTED Nasal Parainfluen 1 PCR NOT DETECTED Nasal Parainfluen 2 PCR NOT DETECTED Nasal Parainfluen 3 PCR NOT DETECTED Nasal Parainfluen 4 PCR NOT DETECTED Nasal RSV (PCR) NOT DETECTED Nasal B.pertussis DNA PCR NOT DETECTED Nasal C.pneumoniae (PCR) NOT DETECTED [place] Human Metapneumo PCR DETECTED A Nasal M.pneumoniae (PCR) NOT DETECTED Nasal SARS-CoV-2 (PCR) NOT DETECTED 04/02/24 02:40 WBC RBC Hgb Hct MCV MCH MCHC RDW Plt Count MPV Neut # (Auto) Lymph # (Auto) [place] # (Auto) Eos # (Auto) Baso # (Auto) Absolute Nucleated RBC Nucleated RBC % Sodium Potassium Chloride Carbon Dioxide Anion Gap BUN Creatinine Estimated GFR (MDRD) Glucose Calcium Total Bilirubin AST ALT Alkaline Phosphatase B-Natriuretic Peptide 2178 H Total Protein Albumin Globulin Albumin/Globulin Ratio Lipase Nasal Adenovirus (PCR) Nasal B. parapertussis DNA (PCR) Nasal Coronavir 229E PCR Nasal Coronavir HKU1 PCR Nasal Coronavir NL63 PCR Nasal Coronavir OC43 PCR Nasal Enterovir/Rhinovir PCR Nasal Influenza B PCR Nasal Influenza A PCR Nasal Parainfluen 1 PCR Nasal Parainfluen 2 PCR Nasal Parainfluen 3 PCR Nasal Parainfluen 4 PCR Nasal RSV (PCR) Nasal B.pertussis DNA PCR Nasal C.pneumoniae (PCR) [place] Human Metapneumo PCR Nasal M.pneumoniae (PCR) Nasal SARS-CoV-2 (PCR) - Rads (name of study) chest xray Relevant Findings:: Prelim report reviewed, See rad report PD Medical Decision Making - ED course Complexity details: reviewed results, re-evaluated patient, considered differential, d/w patient, d/w family ED course: No concerning nor diagnostic findings on CBC, ER abdominal panel (abnormal BUN, creatinine expected given patient is HD). BNP 2178, which is approximately half of the previous value on ED visit 03/28/24. CXR does not evidence CHF although radiologist's interpretation includes "mildly evolving small subsegmental hazy right basilar atelectasis/infiltrate"; given 500mg PO azithromycin to cover possible early pneumonic process with rx for azithromycin 250mg PO QD x 4 days. He is given duoneb followed by albuterol neb in ED and on reevaluation/r eexamination, he is in NAD with much improved aeration/air movement on auscultation of lungs, decreased wheezing (only end-expiratory wheezing remains), and patient reports feeling much improved and requests d/c home. Lastly, I am prescribing a ten-day taper of prednisone. I instructed him to take 20mg of his own prednisone prior to d/c home (he has been taking 40mg PO QHS [facility]) and to then start the tapering course of prescribed prednisone by the end of the day on 04/02/24 (for COPD exacerbation, which seems the most likely explanation for his acute dyspnea on [facility]'s visit). Return precautions reviewed. There were no concerning abnormalities on [facility]'s blood tests. Your nasal swab again tested positive for human metapneumovirus, but negative for the other viruses on this panel (including COVID, influenza). Your chest x-ray was mostly unchanged from when you were last in this emergency department (03/28/2024) except for mild worsening of focal haziness in the right lung base. Is unclear what is causing this abnormality on the chest x-ray, but a developing pneumonia is a possible explanation; considering that you are here [facility] for worsening shortness of breath and increasing cough, I am prescribing you an antibiotic to cover the possibility of early pneumonia. You were given the first dose of the antibiotic (azithromycin) in the emergency department, and I have electronically submitted a prescription to the [facility] pharmacy in [place] for another four days of this antibiotic. I have also submitted prescriptions for a 10-day tapering course of prednisone as well as albuterol solution for your nebulizer. Departure - Departure Disposition: 01 Home, Self Care Clinical Impression: COPD exacerbation Dyspnea Qualifiers: Dyspnea type: shortness of breath Qualified Code(s): R06.02 - Shortness of breath Condition: Good Instructions: ED COPD Flare Follow-Up: Bryce Reyes MD [Primary Care Provider] - Prescriptions: Albuterol 2.5 mg INH Q4H PRN #30 ml PRN Reason: Wheezing predniSONE [Deltasone] 10 mg PO [id number] #42 tab Azithromycin [Zithromax] 250 mg PO DAILY #4 tablet Comments: There were no concerning abnormalities on tonight's blood tests. Your nasal swab again tested positive for human metapneumovirus, but negative for the other viruses on this panel (including COVID, influenza). Your chest x-ray was mostly unchanged from when you were last in this emergency department (03/28/2024) except for mild worsening of focal haziness in the right lung base. Is unclear what is causing this abnormality on the chest x-ray, but a developing pneumonia is a possible explanation; considering that you are here tonight for worsening shortness of breath and increasing cough, I am prescribing you an antibiotic to cover the possibility of early pneumonia. You were given the first dose of the antibiotic (azithromycin) in the emergency department, and I have electronically submitted a prescription to the [facility] pharmacy in [place] for another four days of this antibiotic. I have also submitted prescriptions for a 10-day tapering course of prednisone as well as albuterol solution for your nebulizer. Discharge Date/Time: 04/02/24 05:15
[2024-04-02 02:46] LABS: BASOPHILS % (AUTO) 0.1 %; HCT - HEMATOCRIT 44.9 % (42.0-52.0); HGB - HEMOGLOBIN 13.5 g/dL (14.0-18.0); LYMPHOCYTES # (AUTO) 0.3 10^3/uL (1.5-3.5); LYMPHOCYTES % (AUTO) 3.9 %; MEAN CORPUSCULAR HGB CONC 30.1 g/dL (32.0-36.0); MEAN PLATELET VOLUME 10.9 fL (7.4-11.4); MONOCYTES # (AUTO) 0.1 10^3/uL (0.0-1.0); MONOCYTES % (AUTO) 1.1 %; NEUTROPHILS # (AUTO) 7.1 10^3/uL (1.5-6.6); NEUTROPHILS % (AUTO) 94.5 %; NRBC ABSOLUTE COUNT (AUTO) 0.04 x10^3/uL; NUCLEATED RED BLOOD CELLS AUTO 0.5 /100WBC; PLT - PLATELET COUNT 100 10^3/uL (130-450); RED BLOOD COUNT 4.36 10^6/uL (4.70-6.10); RED CELL DISTRIBUTION WIDTH 18.5 % (12.0-15.0); WHITE BLOOD COUNT 7.5 x10^3/uL (4.8-10.8)
[2024-04-02 03:18] LABS: ALBUMIN 3.6 g/dL (3.2-5.5); ALBUMIN/GLOBULIN RATIO 1.2 (1.0-2.2); BILIRUBIN,TOTAL 0.8 mg/dL (0.2-1.0); CALCIUM 9.6 mg/dL (8.5-10.3); POTASSIUM 4.3 mmol/L (3.5-4.5); TOTAL PROTEIN 6.6 g/dL (6.4-8.9)
[2024-04-02] MEDS: IPRATROPIUM/ALBUTEROL 3 ML NEB INH STA (03:21)
[2024-04-02 03:44] LABS: CORONAVIRUS 229E-RESP PCR NOT DETECTED; CORONAVIRUS HKU1-RESP PCR NOT DETECTED; CORONAVIRUS NL63-RESP PCR NOT DETECTED; CORONAVIRUS OC43-RESP PCR NOT DETECTED; HUMAN METAPNEUMOVIRUS DETECTED; RHINOVIRUS/ENTEROVIRUS NOT DETECTED; SARS-CoV-2 -RESP PCR PANEL NOT DETECTED
[2024-04-02 03:45] LABS: B. PARAPERTUSSIS- RESP PCR PAN NOT DETECTED; B. PERTUSSIS- RESP PCR PANEL NOT DETECTED; C. PNEUMONIAE- RESP PCR PANEL NOT DETECTED; INFLUENZA A- RESP PCR PANEL NOT DETECTED; INFLUENZA B - RESP PCR PANEL NOT DETECTED; M. PNEUMONIAE- RESP PCR PANEL NOT DETECTED; PARAINFLUENZA VIRUS 1 NOT DETECTED; PARAINFLUENZA VIRUS 2 NOT DETECTED; PARAINFLUENZA VIRUS 3 NOT DETECTED; PARAINFLUENZA VIRUS 4 NOT DETECTED; RSV- RESP PCR PANEL NOT DETECTED
[2024-04-02] MEDS: ALBUTEROL NEB 2.5 MG/3 ML INH STA (04:33)
[2024-04-02] MEDS: AZITHROMYCIN 250 MG TABLET PO STA (05:03)
[2024-04-02 05:11] VITALS: BP 128/66; O2SAT 95
--- NOTE | 2024-04-02 09:13 | XRAY Report ---
PROCEDURE: Chest 2V INDICATIONS: dyspnea TECHNIQUE: 2 views of the chest were acquired. COMPARISON: 03/28/2024, 05/06/2023 FINDINGS: Surgical changes and devices: A pacer device can be seen. The leads are seen in the expected posit ions. Sternotomy changes are noted. Lungs and pleura: There is a small right-sided pleural effusion. There is trace blunting of the left costophrenic angle. Mild generalized interstitial prominence can be seen, with mild patchy infiltrat es. An azygos lobe is incidentally noted. Mediastinum: Mediastinal contours appear normal. Heart size is now only minimally enlarged. Bones and chest wall: No suspicious bony lesions. Age-appropriate degenerative changes are seen. O verlying soft tissues appear unremarkable. IMPRESSION: Stable pleural effusions, with a small right-sided pleural effusion and a trace left-sided pleural ef fusion. Scattered patchy infiltrates are seen. There is improved cardiomegaly and interstitial prominence compared to the prior. Postoperative and degenerative changes are seen. Note: No significant discrepancy from the preliminary report. Reviewed by: Luis Fernando Pierson MD on 04/02/2024 8:12 AM KARE[facility] Approved by: Luis Fernando Pierson MD on 04/02/2024 8:12 AM K[facility] Station ID: [id number]
== END 2024-04-02 05:15 | disposition home or self-care (01) ==
LOC: ED 23:36
DX: J44.1 Chronic obstructive pulmonary disease with (acute) exacerbation (principal); I10 Essential (primary) hypertension; E78.00 Pure hypercholesterolemia, unspecified; N40.0 Benign prostatic hyperplasia without lower urinary tract symptoms; I25.2 Old myocardial infarction; I48.91 Unspecified atrial fibrillation; Z79.01 Long term (current) use of anticoagulants; Z95.1 Presence of aortocoronary bypass graft; Z95.0 Presence of cardiac pacemaker; Z79.899 Other long term (current) drug therapy
CPT/HCPCS: 36415; 71046; 80053; 83690; 83880; 85025; 87633; 94640; 94664; 99284; A9270

== ENCOUNTER 2024-04-14 17:52 | Emergency (ER) | payer MEDICARE, BC ==
[2024-04-14] MEDS: ONDANSETRON 4 MG/2 ML VIAL IVP STA (19:07)
[2024-04-14 19:19] LABS: EOSINOPHILS # (AUTO) 0.1 10^3/uL (0.0-0.7); EOSINOPHILS % (AUTO) 1.4 %; HCT - HEMATOCRIT 40.1 % (42.0-52.0); HGB - HEMOGLOBIN 12.2 g/dL (14.0-18.0); LYMPHOCYTES # (AUTO) 0.6 10^3/uL (1.5-3.5); LYMPHOCYTES % (AUTO) 8.8 %; MEAN CORPUSCULAR HEMOGLOBIN 30.6 pg (27.0-31.0); MEAN CORPUSCULAR HGB CONC 30.4 g/dL (32.0-36.0); MEAN CORPUSCULAR VOLUME 100.5 fL (80.0-94.0); MEAN PLATELET VOLUME 12.3 fL (7.4-11.4); MONOCYTES # (AUTO) 0.5 10^3/uL (0.0-1.0); MONOCYTES % (AUTO) 7.2 %; NEUTROPHILS # (AUTO) 5.4 10^3/uL (1.5-6.6); NEUTROPHILS % (AUTO) 82.3 %; PLT - PLATELET COUNT 69 10^3/uL (130-450); RED BLOOD COUNT 3.99 10^6/uL (4.70-6.10); RED CELL DISTRIBUTION WIDTH 17.7 % (12.0-15.0); WHITE BLOOD COUNT 6.6 x10^3/uL (4.8-10.8)
[2024-04-14 19:27] LABS: BILIRUBIN,URINE SMALL (NEGATIVE); GLUCOSE, URINE (UA) 100 mg/dL (NEGATIVE); KETONES,URINE (UA) TRACE mg/dL (NEGATIVE); LEUKOCYTE ESTERASE, URINE NEGATIVE (NEGATIVE); NITRITE,URINE NEGATIVE (NEGATIVE); OCCULT BLOOD,URINE MODERATE (NEGATIVE); PH,URINE 5.5 PH (5.0-7.5); PROTEIN,URINE 100 mg/dL (NEGATIVE); UROBILINOGEN,URINE 0.2 (NORMAL) E.U./dL (NORMAL)
[2024-04-14 19:30] LABS: CLARITY,URINE HAZY (CLEAR)
[2024-04-14 19:31] LABS: AMORPHOUS SEDIMENT,UR Few /LPF; BACTERIA,URINE Moderate /HPF (None Seen); SQUAMOUS EPITHELIAL CELL,UR FEW Squamous (<= Few)
[2024-04-14 19:32] LABS: WBC,URINE 0-3 /HPF (0-3)
[2024-04-14 19:39] LABS: ALBUMIN/GLOBULIN RATIO 1.4 (1.0-2.2); BILIRUBIN,TOTAL 0.9 mg/dL (0.2-1.0); CALCIUM 8.5 mg/dL (8.5-10.3); CREATININE 6.7 mg/dL (0.6-1.3); POTASSIUM 4.3 mmol/L (3.5-4.5); TOTAL PROTEIN 5.1 g/dL (6.4-8.9)
--- NOTE | 2024-04-14 19:44 | ED Physician Documentation ---
History of Present Illness - Stated complaint Stated Complaint: DIZZY/ABD PX - Chief complaint Chief Complaint: Abd Pain - History obtained from History obtained from: Patient, Family - History of Present Illness Pain level max: 4 Pain level now: 0 - Additonal information Additional information: Patient is a 78-year-old male who presents to the emergency department stating that he has nausea and abdominal pain and difficulty breathing. This has been an ongoing issue for several months. It does not seem to be any worse today. He is on dialysis. He is scheduled for dialysis tomorrow. Has a mild dry cough. No fevers. No chills. No actual vomiting. No blood in the stool. The pain is usually in the epigastric area, he states that the pain has resolved now. Review of Systems Constitutional: denies: Fever, Chills Respiratory: reports: Cough. denies: Dyspnea, Wheezing GI: reports: Nausea. denies: Vomiting, Diarrhea, Hematemesis, Bloody / black stool : denies: Dysuria Skin: denies: Rash Musculoskeletal: denies: Neck pain, Back pain Neurologic: denies: Headache PD PAST MEDICAL HISTORY - Past Medical History Past Medical History: Yes Cardiovascular: Hypertension, High cholesterol, [place], Atrial fibrillation Respiratory: COPD Endocrine/Autoimmune: None GI: GERD, Other : Benign prostate hypertrophy, Renal insuffiency HEENT: Other Psych: None Musculoskeletal: None - Past Surgical History Past Surgical History: Yes Cardiovascular: CABG, Pacemaker - Present Medications Home Medications: Ambulatory Orders Medication Instructions Recorded Confirmed Amiodarone [Pacerone] 200 mg PO QPM 06/18/14 04/02/24 Ammonium Lactate 12 misc TOP BID 06/18/14 04/02/24 Atorvastatin Calcium 40 mg PO QPM 06/18/14 04/02/24 Insulin Glargine [Lantus Solostar] 8 unit SUBQ QDBREAKFAST 07/11/14 04/02/24 Apixaban [Eliquis] 5 mg PO BID 09/06/15 04/02/24 Albuterol Sulf [Ventolin Hfa 1 - 2 puffs INH Q4HR PRN #1 inhaler 11/28/16 04/02/24 Inhaler] Furosemide [Lasix] 40 mg PO DAILY 12/14/20 04/02/24 Levothyroxine [Synthroid] 75 mcg PO DAILY 12/14/20 04/02/24 Tiotropium [place] [Spiriva 4 gm IH DAILY 30 Days #30 inhaler 12/14/20 04/02/24 Respimat] allopurinoL [Zyloprim] 100 mg PO BID 12/14/20 04/02/24 carvediloL [Coreg] 12.5 mg PO DAILY 12/14/20 04/02/24 predniSONE [Deltasone] 40 mg PO DAILY #10 tablet 03/28/24 04/02/24 Albuterol 2.5 mg INH Q4H PRN #30 ml 04/02/24 Azithromycin [Zithromax] 250 mg PO DAILY #4 tablet 04/02/24 predniSONE [Deltasone] 10 mg PO [id number] #42 tab 04/02/24 - Allergies Allergies/Adverse Reactions: Allergies Allergy/AdvReac Type Severity Reaction Status Date / Time Penicillins Allergy Unknown Verified 04/14/24 17:56 - Social History Does the pt smoke?: No Smoking Status: Never smoker Does the pt drink ETOH?: No Does the pt have substance abuse?: No - Immunizations Immunizations are current?: Yes - POLST Patient has POLST: No PD ED PE NORMAL - Vitals Vital signs reviewed: Yes - General General: Alert and oriented X 3, No acute distress - HEENT HEENT: PERRL, Moist mucous membranes - Neck Neck: Supple, no meningeal sign - Cardiac Cardiac: RRR, Strong equal pulses - Respiratory Respiratory: No respiratory distress, Clear bilaterally - Abdomen Abdomen: Soft, Non tender, Non distended - Derm Derm: Warm and dry - Extremities Extremities: No edema, No calf tenderness / cord - Neuro Neuro: Alert and oriented X 3 - Psych Psych: Normal mood, Normal affect Results - Vitals Vitals: Vital Signs - 24 hr 04/14/24 04/14/24 04/14/24 17:56 20:15 22:00 Temperature 36.7 C 36.3 C L Heart Rate 78 70 97 Respiratory 18 19 16 Rate Blood Pressure 125/55 L 97/59 L 133/78 H O2 Saturation 99 95 96 Oxygen O2 Source Room air - Labs Labs: Laboratory Tests 04/14/24 04/14/24 04/14/24 18:33 19:10 19:15 WBC 6.6 RBC 3.99 L Hgb 12.2 L Hct 40.1 L MCV 100.5 H MCH 30.6 MCHC 30.4 L RDW 17.7 H Plt Count 69 L MPV 12.3 H Neut # (Auto) 5.4 Lymph # (Auto) 0.6 L [place] # (Auto) 0.5 Eos # (Auto) 0.1 Baso # (Auto) 0.0 Absolute Nucleated RBC 0.00 Nucleated RBC % 0.0 Sodium Potassium Chloride Carbon Dioxide Anion Gap BUN Creatinine Estimated GFR (MDRD) Glucose Calcium Total Bilirubin AST ALT Alkaline Phosphatase B-Natriuretic Peptide Total Protein Albumin Globulin Albumin/Globulin Ratio Lipase Urine Color YELLOW Urine Clarity HAZY Urine pH 5.5 Ur Specific [place] >=1.030 H Urine Protein 100 H Urine Glucose (UA) 100 H Urine Ketones TRACE Urine Occult Blood MODERATE H Urine Nitrite NEGATIVE Urine Bilirubin SMALL H Urine Urobilinogen 0.2 (NORMAL) Ur Leukocyte Esterase NEGATIVE Urine RBC 6-10 H Urine WBC 0-3 Ur Squamous Epith Cells FEW Squamous Amorphous Sediment Few Urine Bacteria Moderate H Ur Microscopic Review INDICATED Urine Culture Comments NOT INDICATED Nasal Adenovirus (PCR) NOT DETECTED Nasal B. parapertussis DNA (PCR) NOT DETECTED Nasal Coronavir 229E PCR NOT DETECTED Nasal Coronavir HKU1 PCR NOT DETECTED Nasal Coronavir NL63 PCR NOT DETECTED Nasal Coronavir OC43 PCR NOT DETECTED Nasal Enterovir/Rhinovir PCR NOT DETECTED Nasal Influenza B PCR NOT DETECTED Nasal Influenza A PCR NOT DETECTED Nasal Parainfluen 1 PCR NOT DETECTED Nasal Parainfluen 2 PCR NOT DETECTED Nasal Parainfluen 3 PCR NOT DETECTED Nasal Parainfluen 4 PCR NOT DETECTED Nasal RSV (PCR) NOT DETECTED Nasal B.pertussis DNA PCR NOT DETECTED Nasal C.pneumoniae (PCR) NOT DETECTED [place] Human Metapneumo PCR DETECTED A Nasal M.pneumoniae (PCR) NOT DETECTED Nasal SARS-CoV-2 (PCR) NOT DETECTED 04/14/24 04/14/24 19:15 19:15 WBC RBC Hgb Hct MCV MCH MCHC RDW Plt Count MPV Neut # (Auto) Lymph # (Auto) [place] # (Auto) Eos # (Auto) Baso # (Auto) Absolute Nucleated RBC Nucleated RBC % Sodium 134 L Potassium 4.3 Chloride 96 L Carbon Dioxide 28 Anion Gap 10.0 BUN 58 H Creatinine 6.7 H Estimated GFR (MDRD) 8 L Glucose 337 H Calcium 8.5 Total Bilirubin 0.9 AST 26 ALT 34 Alkaline Phosphatase 100 B-Natriuretic Peptide 1384 H Total Protein 5.1 L Albumin 3.0 L Globulin 2.1 Albumin/Globulin Ratio 1.4 Lipase 123 H Urine Color Urine Clarity Urine pH Ur Specific [place] Urine Protein Urine Glucose (UA) Urine Ketones Urine Occult Blood Urine Nitrite Urine Bilirubin Urine Urobilinogen Ur Leukocyte Esterase Urine RBC Urine WBC Ur Squamous Epith Cells Amorphous Sediment Urine Bacteria Ur Microscopic Review Urine Culture Comments Nasal Adenovirus (PCR) Nasal B. parapertussis DNA (PCR) Nasal Coronavir 229E PCR Nasal Coronavir HKU1 PCR Nasal Coronavir NL63 PCR Nasal Coronavir OC43 PCR Nasal Enterovir/Rhinovir PCR Nasal Influenza B PCR Nasal Influenza A PCR Nasal Parainfluen 1 PCR Nasal Parainfluen 2 PCR Nasal Parainfluen 3 PCR Nasal Parainfluen 4 PCR Nasal RSV (PCR) Nasal B.pertussis DNA PCR Nasal C.pneumoniae (PCR) [place] Human Metapneumo PCR Nasal M.pneumoniae (PCR) Nasal SARS-CoV-2 (PCR) - Rads (name of study) cxr Relevant Findings:: Final report received, See rad report PD Medical Decision Making - ED course Complexity details: reviewed results, re-evaluated patient, considered differential, d/w patient, d/w family ED course: Patient is well-appearing, nontoxic. Afebrile. No hypoxia. No respiratory distress. He is still positive for human metapneumovirus, likely causing his cough. His chest x-ray appears consistent with this as well. No indication for antibiotics at this time. He has dialysis scheduled for the morning. Nausea resolved. Abdominal pain resolved. Tolerating p.o. without difficulty. Abdomen is soft, nontender nondistended on serial exam. We will have him follow-up with his doctor for further care and return if he worsens. Patient and family counseled regarding signs and symptoms for which I believe and urgent re-evaluation would be necessary. Patient and family with good understanding of and agreement to plan and is comfortable going home at this time This document was made in part using voice recognition software. While efforts are made to proofread this document, sound alike and grammatical errors may occur. Departure - Departure Disposition: 01 Home, Self Care Clinical Impression: Human metapneumovirus (hMPV) pneumonia Condition: Good Instructions: ED Viral Syndrome Follow-Up: Bryce Reyes MD [Primary Care Provider] - Comments: Please follow-up with your doctor for further care. As we discussed you are positive for human metapneumovirus which is a viral lung infection. This will resolve on its own. Please make sure you are taking your medications as prescribed. Please make sure you are drinking plenty of water at home as well. Forms: PCP List Discharge Date/Time: 04/14/24 22:20
[2024-04-14 20:29] LABS: B. PARAPERTUSSIS- RESP PCR PAN NOT DETECTED; B. PERTUSSIS- RESP PCR PANEL NOT DETECTED; C. PNEUMONIAE- RESP PCR PANEL NOT DETECTED; CORONAVIRUS 229E-RESP PCR NOT DETECTED; CORONAVIRUS HKU1-RESP PCR NOT DETECTED; CORONAVIRUS NL63-RESP PCR NOT DETECTED; CORONAVIRUS OC43-RESP PCR NOT DETECTED; HUMAN METAPNEUMOVIRUS DETECTED; INFLUENZA A- RESP PCR PANEL NOT DETECTED; INFLUENZA B - RESP PCR PANEL NOT DETECTED; M. PNEUMONIAE- RESP PCR PANEL NOT DETECTED; PARAINFLUENZA VIRUS 1 NOT DETECTED; PARAINFLUENZA VIRUS 2 NOT DETECTED; PARAINFLUENZA VIRUS 3 NOT DETECTED; PARAINFLUENZA VIRUS 4 NOT DETECTED; RHINOVIRUS/ENTEROVIRUS NOT DETECTED; RSV- RESP PCR PANEL NOT DETECTED; SARS-CoV-2 -RESP PCR PANEL NOT DETECTED
[2024-04-14 22:21] VITALS: BP 133/78; O2SAT 96
--- NOTE | 2024-04-14 23:15 | XRAY Report ---
PROCEDURE: Chest 1V INDICATIONS: dyspnea TECHNIQUE: One view of the chest was acquired. COMPARISON: 04/02/2024, 03/28/2024. FINDINGS: Surgical changes and devices: Left cardiac pacemaker. Multiple median sternotomy wires. Findings com patible with prior CABG. Surgical clips in the right upper chest. Lungs and pleura: Diffuse interstitial prominence. Stable appearance of bilateral pleural effusions which is trace on the left and small on the right. Patchy opacities of the right mid and lower lung z ones not significantly changed. Patchy opacities of the left mid lung zone and lung base appear stabl e to mildly progressed. No new focal airspace disease. No pneumothorax. Mediastinum: Mediastinal contours appear normal. Heart size is enlarged. Bones and chest wall: No suspicious bony lesions. Overlying soft tissues appear unremarkable. IMPRESSION: Mild cardiomegaly. Patchy bilateral mid and lower lung zone opacities are stable to minimally progressed which in part m ay be due to differences in imaging technique. Findings may represent mild pulmonary edema although a n infectious or inflammatory process not excluded if clinically appropriate. No new focal consolidati on identified. Persistent small right and trace left bilateral pleural effusions. Reviewed by: Jonh Shannon MD on 04/14/2024 11:14 PM PDT Approved by: Jonh Shannon MD on 04/14/2024 11:14 PM PDT Station ID: [id number]
== END 2024-04-14 22:20 | disposition home or self-care (01) ==
LOC: ED 17:52
DX: J12.3 Human metapneumovirus pneumonia (principal); I10 Essential (primary) hypertension; E78.00 Pure hypercholesterolemia, unspecified; I25.2 Old myocardial infarction; I48.91 Unspecified atrial fibrillation; J44.9 Chronic obstructive pulmonary disease, unspecified; N40.0 Benign prostatic hyperplasia without lower urinary tract symptoms; N28.9 Disorder of kidney and ureter, unspecified; Z79.01 Long term (current) use of anticoagulants; Z79.4 Long term (current) use of insulin; Z79.899 Other long term (current) drug therapy
CPT/HCPCS: 36415; 80053; 81001; 81003; 83690; 83880; 85025; 87086; 87633; 96374; 99283